=== PATIENT | female | born 1955 | race Caucasian/White ===

== ENCOUNTER → 2016-10-13 | Outpatient (CLI) | payer OTHER, BC ==
[~2016-10-13] MED LIST: ACETAMINOPHEN325 M1 PO; APAP500 PO; ATIVAN0.5 MG PO; ATIVAN1 MG PO; B12INJ IM; BACTRIM DS TAB1 EACH PO; BELLADONNA500 ML PO; CALCIUM 600 +1 EAC1 PO; CALCIUM PO; CEFEPIME 1 GM VI1 G2 INJECTION; CHLORTHALIDONE25 MG PO; CIPRO250 M1 PO; CIPRO500 MG PO; CLOTRIMAZOLE-BE30 M1 TP; COMPAZINE10 M1 PO; COUMADIN 5 MG TA5 M1 PO; DARVOCET-N 1001 EAC1 PO; DEMADEX20 MG PO; DILAUDID4 MG PO; DOCUPRENE100 MG PO; DUCODYL5 MG PO; FENTANYL PA25 MCG/HR TD; FENTANYL PA50 MCG/HR TP; FLEXERIL PO; FLOMAX0.4 MG PO; FOLIC ACID1 MG; GABAPENTIN 100100 MG PO; HCTZ PO; HYDROCODON-ACE1 EAC5 PO; IBUPROFEN 600600 M1 PO; INVANZ 1GM/NS 101 GM; IRON325; KEFLEX500 MG PO; LOPERAMIDE 2 MG2 M1 PO; MAGNESIUM400 MG PO; MEDROLDOSEPACK PO; MIRALAX17 GM PO; NORCO 10-325 T1 EACH PO; NORCO 5-325 TA1 EACH; NYAMYC15 GM TOP; NYSTATIN 1100000 U/M PO; NYSTATIN1 EA10 TOP; ONDANSETRON HCL4 M2 PO; PERCOCET 10-321 EACH PO; PERCOCET 5-3251 EACH PO; PHENAZOPYRIDIN200 M2 PO; PROBIOTIC1 EAC1 PO; PROTONIX40 M1 PO; SENNA PO; SENOKOT-S1 TA1 PO; TOPROL XL25 MG PO; TRAMADOL 50 MG50 MG PO; TRIAMTERENE-HC1 EAC1 PO; VESICARE 5 MG TA5 MG PO; VITCB500GO PO; ZOFRAN4 MG PO
[2016-10-13 12:15] VITALS: BP 117/46
[2016-10-13 12:27] LABS: HEMATOCRIT 36.4 % (37.0-47.0); HEMOGLOBIN 11.1 gm/dL (12.0-15.0); MCH 26.1 pg (26.0-34.0); MCHC 30.4 g/dL (28.0-37.0); MCV 85.7 fL (80.0-100.0); RBC 4.25 mil/uL (4.20-5.00); RDW 18.3 % (10.5-14.5); WBC 7.5 thou/uL (4.0-11.0)
[2016-10-13 12:40] LABS: ALBUMIN 2.7 g/dL (3.4-5.0); CALCIUM 8.3 mg/dL (8.5-10.1); CREATININE 2.3 mg/dL (0.6-1.0); POTASSIUM 4.7 mmol/L (3.5-5.1); TOTAL BILIRUBIN 0.4 mg/dL (<0.1-1.0); TOTAL PROTEIN 6.6 g/dL (6.4-8.2)
== END ==
LOC: OPONC 07:22
PROVIDERS: Internal Medicine
DX: N30.01 Acute cystitis with hematuria (principal)
CPT/HCPCS: 27001; 95000

== ENCOUNTER 2017-01-29 14:50 | Inpatient (IN) | payer OTHER, BC ==
[~2017-01-29] VITALS: Ht 154.9 cm; Wt 126.1 kg
--- NOTE | ~2017-01-29 | 2DMMODE ---
[facility] [address] [place] [address] 2 D/M-MODE ECHOCARDIOGRAM Name: EDGARDO PEDRAZA Room #: 422-P ADM IN M.R.#: [id number] Admission: 01/29/17 Attend Phys: Sonido Ivy Discharge: Date of : 53 Date of Service: 01/30/17 1218 Report #: [id number] THIS REPORT FOR: //name// APPROVED REPORT Study performed: 01/30/2017 10:33:00 EXAM: Comprehensive 2D, Doppler, and color-flow Echocardiogram Patient Location: Echo lab Room #: 422 Status: routine BSA: 2.15 HR: 93 bpm Rhythm: NSR Other Information Study Quality: Fair/uncooperative patient. Poor apical window. Not all measurements taken. Technically limited study due to morbid obesity. Limited mobility. Indications Congestive Heart Failure Dyspnea Tachycardia Edema Echo Enhancing Agent Indication: Endocardial border delineation Agent(s) / Amount(s) Used: Optison 3 cc 2D Dimensions LVEF(%): 69.20 (>50%) IVSd: 11.00 (7-11mm) LVOT Diam: 23.52 (18-24mm) LVDd: 49.31 mm PWd: 9.88 (7-11mm) LVDs: 30.09 (25-40mm) Aortic Root: 36.21 mm Lee's LVEF: 69.20 % Aortic Valve AoV Peak Ricardo.: 1.68 m/s AO Peak Gr.: 11.29 mmHg LVOT Max P.04 mmHg LVOT Max V: 1.23 m/s [facility] [address] [place] [address] 2 D/M-MODE ECHOCARDIOGRAM Name: EDGARDO PEDRAZA Room #: 422-P ADM IN M.R.#: [id number] Admission: 01/29/17 Attend Phys: Sonido Ivy Discharge: Date of : 53 Date of Service: 01/30/17 1218 Report #: [id number] Vmax: 3.18 cm2 Mitral Valve E/A Ratio: 1.2 MV Decel. Time: 129.26 ms MV E Max Ricardo.: 1.30 m/s MV A Ricardo.: 1.09 m/s MV PHT: 37.49 ms Pulmonary Valve PV Peak Ricardo.: 0.90 m/s PV Peak Gr.: 3.21 mmHg Tricuspid Valve TR Peak Ricardo.: 2.91 m/s RAP Estimate: 15.00 mmHg TR Peak Gr.: 34.00 mmHg PA Pressure: 49.00 mmHg Left Ventricle The left ventricle is normal size. There is normal LV segmental wall motion. Flattened septum noted. There is normal left ventricular wall thickness. The left ventricular systolic function is normal. LVEF is 55%. Moderate diastolic dysfunction is present (pseudonormal filling). Right Ventricle Poorly visualized but appears dilated. Difficult to assess function. Atria The left atrium size is normal. Poorly visulalized but appears dilated. Aortic Valve The aortic valve is normal in structure. No aortic regurgitation is present. There is no aortic valvular stenosis. Mitral Valve The mitral valve is normal in structure. Mild mitral regurgitation. Eccentric jet; diffiucult to assess Tricuspid Valve The tricuspid valve is normal in structure. There is mild tricuspid regurgitation; difficult to assess. The right atrial pressure is estimated at 15 mmHg. There is moderate pulmonary hypertension with an estimated PAP of 45-50mmHg. [facility] [address] [place] [address] 2 D/M-MODE ECHOCARDIOGRAM Name: EDGARDO PEDRAZA Room #: 422-P ADM IN M.R.#: [id number] Admission: 01/29/17 Attend Phys: Sonido Ivy Discharge: Date of : 53 Date of Service: 01/30/17 1218 Report #: [id number] Pulmonic Valve The pulmonary valve is normal in structure. Trace pulmonic regurgitation. Great Vessels The aortic root is normal in size. Ascending aorta is not well visualized. IVC is dilated and collapses <50% with inspiration. Pericardium There is no pericardial effusion. <Conclusion> The left ventricular systolic function is normal. LVEF is 55%. Moderate diastolic dysfunction is present (pseudonormal filling). Poorly visualized but appears dilated. Difficult to assess function. The aortic valve is normal in structure. Mild mitral regurgitation. Eccentric jet; diffiucult to assess There is mild tricuspid regurgitation; difficult to assess. The right atrial pressure is estimated at 15 mmHg. There is moderate pulmonary hypertension with an estimated PAP of 45-50mmHg. IVC is dilated and collapses <50% with inspiration. There is no pericardial effusion. <ELECTRONICALLY SIGNED> By: Alin Lara MD, [facility] 01/30/17 1218 17 Alin Lara MD, FACC /INF
--- NOTE | ~2017-01-29 | EKG ---
[place] [address] [facility] [place] [address] ELECTROCARDIOGRAM REPORT Name: EDGARDO PEDRAZA Room #: 422-P ADM IN M.R.#: [id number] Admission: 01/29/17 Attend Phys: Fernanda Gamboa Discharge: Date of : 53 Report #: [id number] THIS REPORT FOR: //name// [facility] Test Date: 2017-02-01 Test Time: 08:05:56 Pat Name: EDGARDO PEDRAZA Department: Room: 422 Gender: F Kick Press Setter: CASA : 1955 Requested By: Nataliya Magaña Order Number: [id number] MD: Jose Hester Measurements Intervals [place] Rate: 99 P: -8 [place]: 158 QRS: 166 QRSD: 108 T: -42 QT: 343 QTc: 441 Interpretive Statements Sinus rhythm Low voltage, precordial leads Poor R wave progression Nonspecific T abnormalities, diffuse leads Baseline wander in lead(s) V3 Compared to ECG 08/06/2015 16:23:20 No significant change was found Electronically Signed On 02-03-2017 12:42:48 CDT by Jose Hester [email or web address] <ELECTRONICALLY SIGNED> By: Jose Hester MD, [facility] 02/03/17 1242 08 0805 Jose Hester MD, [facility] /EPI
--- NOTE | ~2017-01-29 | H ---
[facility] [place] [address] HISTORY AND PHYSICAL Name: EDGARDO PEDRAZA Room #: 422-P ADM IN M.R.#: [id number] Admission: 01/29/17 Attend Phys: Fernanda Gamboa Discharge: Date of : 53 Report #: [id number] THIS REPORT FOR: //name// CC: Sonido Miranda DATE OF SERVICE: 01/29/2017 CHIEF COMPLAINT: Swelling. HISTORY OF PRESENT ILLNESS: The patient is a 61-year-old female admitted from the office with swelling. She has noted recent days of increased shortness of breath, lower extremity edema and weight gain. She has felt a fullness across her abdomen and the sensation of pitting edema all the way up to her lower back and mid abdomen. She does have a known history of diastolic heart failure and chronic kidney disease. PAST MEDICAL HISTORY: Metastatic endometrial cancer treated several years ago, current status is unknown; chronic kidney disease; diastolic heart failure; morbid obesity. PAST SURGICAL HISTORY: I believe she has had a hysterectomy. FAMILY HISTORY: Noncontributory. SOCIAL HISTORY: She lives at home. No chronic alcohol or tobacco use. ALLERGIES: KEFLEX ORAL AND IV CONTRAST, NONSTEROIDALS, TORSEMIDE, PENICILLIN. MEDICATIONS: Lasix, Ativan, hydrocodone. REVIEW OF SYSTEMS: She denies headache, chest pain, shortness of breath, abdominal pain, nausea, vomiting, diarrhea, constipation, dysuria, syncope. OBJECTIVE: VITAL SIGNS: Temperature 37.1, pulse , respirations 20, blood pressure 120/60, O2 sat 95% on room air. GENERAL: She is awake and alert, sitting up in bed in no distress. LUNGS: Clear. HEART: Regular. ABDOMEN: Obese, soft, normoactive bowel sounds. EXTREMITIES: She has pitting edema in the flanks bilaterally. EXTREMITIES: 2 to 3+ pitting edema throughout. NEUROLOGIC: She is alert and oriented. Strength is intact. ASSESSMENT: 1. Acute on chronic diastolic heart failure. [address] [address] HISTORY AND PHYSICAL Name: EDGARDO PEDRAZA Room #: [facility] IN M.R.#: [id number] Admission: 01/29/17 Attend Phys: Fernanda Gambao Discharge: Date of : 53 Report #: [id number] 2. Acute on chronic kidney disease stage IV with estimated GFR of 18. 3. Anasarca. 4. Morbid obesity. 5. Personal history of endometrial cancer and I have asked for a CT of the abdomen to rule out ascites or mass effect and Doppler ultrasound. The Renal and Cardiology Services have seen her as well. Lovenox for deep venous thrombosis prophylaxis. <ELECTRONICALLY SIGNED> By: Rudolph Benavidez MD 01/30/17 1456 1049 1135 Rudolph Benavidez MD /nt
--- NOTE | ~2017-01-29 | HC ---
[facility] [place] [address] CONSULTATION Name: EDGARDO PEDRAZA Room #: 422-P [facility] IN M.R.#: [id number] Admission: 01/29/17 Attend Phys: Fernanda Gamboa Discharge: 02/03/17 Date of : 53 Report #: [id number] THIS REPORT FOR: //name// CC: Sonido Miranda DATE OF SERVICE: 01/30/2017. REASON FOR CONSULTATION: Elevated creatinine. HISTORY OF PRESENT ILLNESS: The patient followed in our office previously by Dr. 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 She has had chronic renal stone disease from previous jejunoileal bypass, she has had obstruction on the right, she has had lithotripsy, and now her creatinine is rising. She is not having right-sided flank pain at this time. PAST MEDICAL HISTORY: She had endometrial carcinoma. As mentioned, radiation and chemotherapy. She has had gastric bypass surgery, jejunoileal bypass with the frequent oxalate kidney stone. She has had a hysterectomy and cholecystectomy in the past as well. HOME MEDICATIONS: As listed include furosemide 20 mg b.i.d., Ativan 0.5 mg daily and Berkley p.r.n. FAMILY HISTORY: Positive for cancer and heart disease. 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 REVIEW OF SYSTEMS: GENERAL: She has been feeling poorly, easily winded. EYES: Her vision is okay. ENT: Hearing okay, swallows okay. Denies mouth ulcers. ENDOCRINE: No diabetes or thyroid disease. RESPIRATORY: She has been getting increasingly short of breath . CARDIAC: No chest pain, angina or palpitations. GASTROINTESTINAL: No nausea, vomiting, diarrhea or bloody stools. GENITOURINARY: She has got a reasonably good stream without dysuria. NEUROLOGIC: She has got evidence of peripheral neuropathy with numbness and tingling in her feet and hands. PSYCHIATRIC: She is very anxious. PHYSICAL EXAMINATION: VITAL SIGNS: This is a anxious woman in no acute distress. SKIN: Unremarkable. SKELETAL: Rather obese. HEENT: Extraocular movements are full. No scleral icterus. Hearing and vision [facility] [address] [place] [address] CONSULTATION Name: EDGARDO PEDRAZA Room #: 422-P [facility] IN M.R.#: [id number] Admission: 01/29/17 Attend Phys: Fernanda Gamboa Discharge: 02/03/17 Date of : 53 Report #: [id number] intact. Mucous membranes moist. Tongue, buccal mucosa benign. NECK: Supple. CHEST: Clear to auscultation. HEART: Regular. ABDOMEN: Soft and nontender. EXTREMITIES: 3+ peripheral edema. LABORATORY DATA: Hemoglobin 8.9, sodium 140, potassium 4.3, chloride 106, bicarbonate 30. BUN 32, creatinine 2.7. ASSESSMENT AND PLAN: 1. Elevated creatinine, her creatinine has been progressively rising, this could be due to swelling and diuresis may help, this could be worsening progression of renal disease, partially due to lithotripsy procedures on her and malfunctioning kidney, this could be recurrent renal stone disease with obstructions. KUB and renal sonogram will be performed to assess for kidney stones and hydronephrosis. 2. Volume overload. I suspect her cardiac function is okay. We will try some IV diuretics. 3. Status post jejunoileal bypass. 4. Calcium oxalate renal stones. We need chronic treatment with calcium with her meals to bind up the oxalate. 5. History of endometrial carcinoma, status post radiation and chemotherapy and hysterectomy. 6. Peripheral neuropathy. <ELECTRONICALLY SIGNED> By: Alin Denton MD 02/04/17 1122 0942 1221 Alin Denton MD /nt
--- NOTE | ~2017-01-29 | EKG ---
[address] [address] ELECTROCARDIOGRAM REPORT Name: EDGARDO PEDRAZA Room #: 422- ADM IN M.R.#: [id number] Admission: 01/29/17 Attend Phys: Fernanda Gamboa Discharge: Date of : 53 Report #: [id number] THIS REPORT FOR: //name// [facility] Test Date: 2017-01-29 Test Time: 15:48:36 Pat Name: EDGARDO PEDRAZA Department: Room: 422 Gender: F Trackwalker: Fernanda MENDOZA : 1955 Requested By: Sonido Miranda Order Number: [id number] MD: Jose Hester Measurements Intervals [place] Rate: 89 P: 7 [place]: 165 QRS: 189 QRSD: 104 T: -13 QT: 360 QTc: 439 Interpretive Statements Sinus rhythm Atrial premature complex Probable RVH w/ secondary repol abnormality Compared to ECG 08/06/2015 16:23:20 Atrial premature complex(es) now present Electronically Signed On 02-03-2017 8:46:06 CDT by Jose Hester [email or web address] <ELECTRONICALLY SIGNED> By: Jose Hester MD, [facility] 02/03/17 0846 1548 1548 Jose Hester MD, [facility] /EPI
[2017-01-29 16:12] VITALS: BP 106/50
[2017-01-29] MEDS ORDERED: LASIX 20 MG TAB20 MG PO (18:04)
[2017-01-29 19:26] LABS: ABSOLUTE NEUTROPHILS 7.1 thou/uL (1.4-8.2); BASOPHILS 0.3 % (0.0-2.0); EOSINOPHILS 1.3 % (0.0-3.0); HEMATOCRIT 29.6 % (37.0-47.0); HEMOGLOBIN 8.9 gm/dL (12.0-15.0); LYMPHOCYTES 5.6 % (24.0-44.0); MANUAL DIFF NO; MCH 25.6 pg (26.0-34.0); MCHC 30.1 g/dL (28.0-37.0); MCV 85.2 fL (80.0-100.0); MONOCYTES 7.2 % (1.0-8.0); PLATELET COUNT 148 thou/uL (150-400); POLYS 85.6 % (36.0-66.0); RBC 3.48 mil/uL (4.20-5.00); RDW 20.6 % (10.5-14.5); WBC 8.2 thou/uL (4.0-11.0)
[2017-01-29 19:39] LABS: ALBUMIN 2.5 g/dL (3.4-5.0); CALCIUM 8.2 mg/dL (8.5-10.1); CREATININE 2.7 mg/dL (0.6-1.0); POTASSIUM 4.3 mmol/L (3.5-5.1); TOTAL BILIRUBIN 0.6 mg/dL (<0.1-1.0); TOTAL PROTEIN 6.7 g/dL (6.4-8.2)
[2017-01-29 20:04] VITALS: BP 110/57
[2017-01-30 04:15] VITALS: BP 97/54
[2017-01-30 08:04] VITALS: BP 120/60
[2017-01-30 16:12] VITALS: BP 129/73
[2017-01-30 20:00] VITALS: BP 109/45
[2017-01-31 03:39] LABS: ALBUMIN 2.4 g/dL (3.4-5.0); CREATININE 2.7 mg/dL (0.6-1.0); PHOSPHORUS 3.4 mg/dL (2.5-4.9); POTASSIUM 4.3 mmol/L (3.5-5.1)
[2017-01-31 04:50] VITALS: BP 109/54
[2017-01-31 08:00] VITALS: BP 126/67
[2017-01-31 11:32] LABS: URINE BILIRUBIN NEGATIVE (Negative); URINE BLOOD 1+ (Negative); URINE COLOR YELLOW; URINE GLUCOSE-RANDOM* NEGATIVE (Negative); URINE KETONES NEGATIVE (Negative); URINE NITRITE NEGATIVE (Negative); URINE PROTEIN (DIPSTICK) NEGATIVE (Negative); URINE UROBILINOGEN 0.2 E.U./dl (0.2-1.0)
[2017-01-31 11:40] LABS: URINE CREATININE-RANDOM* 27.5 mg/dL; URINE PROTEIN-RANDOM* 14.8 mg/dL (<11.9)
[2017-01-31 12:45] LABS: BACTERIA 1-9 Few /HPF (None Seen); CASTS None Seen /LPF (None Seen); CRYSTALS None Seen /LPF (None Seen); SQUAMOUS 0-3 Few /LPF (0-3); URINE RBC 0-2 Rare /HPF (0-2); URINE WBC 6-15 Few /HPF (0-5)
[2017-01-31 20:00] VITALS: BP 95/39
[2017-02-01 03:53] LABS: ALBUMIN 2.5 g/dL (3.4-5.0); CALCIUM 8.1 mg/dL (8.5-10.1); CREATININE 2.8 mg/dL (0.6-1.0); POTASSIUM 4.4 mmol/L (3.5-5.1)
[2017-02-01 04:24] VITALS: BP 104/42
[2017-02-01 14:00] LABS: HEMATOCRIT 31.9 % (37.0-47.0); HEMOGLOBIN 9.5 gm/dL (12.0-15.0); MCH 24.8 pg (26.0-34.0); MCHC 29.7 g/dL (28.0-37.0); MCV 83.3 fL (80.0-100.0); PLATELET COUNT 194 thou/uL (150-400); RBC 3.83 mil/uL (4.20-5.00); RDW 20.2 % (10.5-14.5); WBC 9.1 thou/uL (4.0-11.0)
[2017-02-01 14:01] LABS: MANUAL DIFF YES
[2017-02-01 14:25] LABS: ABSOLUTE NEUTROPHILS 7.6 thou/uL (1.4-8.2); ANISOCYTOSIS 1+; TOTAL CELL COUNT 100
[2017-02-01 18:29] LABS: URINE BILIRUBIN NEGATIVE (Negative); URINE BLOOD 1+ (Negative); URINE COLOR YELLOW; URINE GLUCOSE-RANDOM* NEGATIVE (Negative); URINE KETONES NEGATIVE (Negative); URINE NITRITE NEGATIVE (Negative); URINE PROTEIN (DIPSTICK) NEGATIVE (Negative); URINE UROBILINOGEN 0.2 E.U./dl (0.2-1.0)
[2017-02-01 18:34] LABS: SQUAMOUS 0-3 Few /LPF (0-3); URINE RBC 3-10 Few /HPF (0-2); URINE WBC 6-15 Few /HPF (0-5)
[2017-02-01 18:35] LABS: BACTERIA 1-9 Few /HPF (None Seen); CASTS None Seen /LPF (None Seen); CRYSTALS None Seen /LPF (None Seen)
[2017-02-01 20:00] VITALS: BP 109/48
[2017-02-02 04:30] VITALS: BP 108/55
[2017-02-02 05:27] LABS: ALBUMIN 2.5 g/dL (3.4-5.0); CALCIUM 8.1 mg/dL (8.5-10.1); CREATININE 2.6 mg/dL (0.6-1.0); PHOSPHORUS 3.6 mg/dL (2.5-4.9); POTASSIUM 3.9 mmol/L (3.5-5.1)
[2017-02-02 08:28] VITALS: BP 108/61
[2017-02-02 16:54] VITALS: BP 101/59
[2017-02-02 20:01] VITALS: BP 95/46
[2017-02-03 03:34] VITALS: BP 107/58
[2017-02-03 05:25] LABS: ALBUMIN 2.7 g/dL (3.4-5.0); CALCIUM 8.1 mg/dL (8.5-10.1); CREATININE 2.7 mg/dL (0.6-1.0); PHOSPHORUS 3.5 mg/dL (2.5-4.9)
[2017-02-03 08:00] VITALS: BP 108/59
[2017-02-03] MEDS ORDERED: TAMBOCOR 100 M100 M1 PO (09:22)
[2017-02-03] MEDS ORDERED: LASIX 40 MG TAB40 M2 PO (09:23)
[2017-02-03] MEDS ORDERED: METOPROLOL SUCC25 M1 PO (09:23)
[2017-02-03 10:34] VITALS: BP 108/59
== END 2017-02-03 16:56 | disposition home or self-care (01) | DRG 682 ==
LOC: 4E 14:50
PROVIDERS: Hospitalist; Internal Medicine; Internal Medicine Geriatric Medicine; Internal Medicine Nephrology
DX: N17.9 Acute kidney failure, unspecified (principal); I50.33 Acute on chronic diastolic (congestive) heart failure; I47.1 Supraventricular tachycardia; Z68.43 Body mass index [BMI] 50.0-59.9, adult; E66.01 Morbid (severe) obesity due to excess calories; N18.4 Chronic kidney disease, stage 4 (severe); D64.9 Anemia, unspecified; G89.29 Other chronic pain; M54.9 Dorsalgia, unspecified; N20.0 Calculus of kidney; I27.2 Other secondary pulmonary hypertension; Z92.3 Personal history of irradiation; Z92.21 Personal history of antineoplastic chemotherapy; Z98.84 Bariatric surgery status; Z90.710 Acquired absence of both cervix and uterus; Z80.8 Family history of malignant neoplasm of other organs or systems; Z82.49 Family history of ischemic heart disease and other diseases of the circulatory system
CPT/HCPCS: 10783

== ENCOUNTER 2017-03-13 16:03 | Inpatient (IN) | payer OTHER, BC ==
[~2017-03-13] VITALS: Ht 154.9 cm; Wt 136.8 kg
--- NOTE | ~2017-03-13 | HC ---
[facility] [place] [address] CONSULTATION Name: EDGARDO PEDRAZA Room #: 243-P ADM IN M.R.#: [id number] Admission: 03/13/17 Attend Phys: Rudolph Benavidez MD Discharge: Date of : 53 Report #: [id number] THIS REPORT FOR: //name// CC: Sonido Benavidez PRIMARY CARE PHYSICIAN: Dr. Devyn Miranda. REFERRING PHYSICIAN: Dr. Benavidez. REASON FOR REFERRAL: Acute hypoxic respiratory failure. HISTORY OF PRESENT ILLNESS: The patient is a 61-year-old white female who was admitted on 03/13/2017 with worsening anasarca along with pulmonary edema. She has chronic kidney disease. Overnight, she became more hypoxic when she was transferred to the ICU, a pulmonary consultation was requested. The patient has been closely followed by renal service. She was felt to have worsening of renal function. Because of some noncompliance with dietary salt intake, she has been difficult to manage. With worsening symptoms along with anasarca, plan is now for dialysis today. She is much better since early this morning. She is on noninvasive positive pressure ventilation. Chest x-ray shows small lung volumes with increased pulmonary edema. PAST MEDICAL HISTORY: Notable for endometrial and cervical cancer with hysterectomy in 2011, chemo and radiation therapy. 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 PAST SURGICAL HISTORY: Includes tonsillectomy, cholecystectomy, gastric bypass surgery in 1973, total abdominal hysterectomy, bilateral salpingo-oophorectomy for endometrial cancer. ALLERGIES: 1. CEPHALOSPORIN, which causes severe C. difficile colitis. 2. CONTRAST DYE due to renal failure. 3. NSAIDS due to renal failure. 4. TORSEMIDE causes some swelling and tingling or paresis. 5. TETANUS TOXOID causes edema and fever. 6. PENICILLIN also causes C. difficile colitis. HOME MEDICATIONS: Lasix, Tambocor, Toprol, Ativan, Zofran, hydrocodone. FAMILY HISTORY: Noncontributory. [facility] [address] [place] [address] CONSULTATION Name: EDGARDO PEDRAZA Room #: [facility] IN M.R.#: [id number] Admission: 03/13/17 Attend Phys: Rudolph Benavidez MD Discharge: Date of : 53 Report #: [id number] SOCIAL HISTORY: The patient has smoked in the past. She denies any alcohol use. REVIEW OF SYSTEMS: As mentioned above, otherwise 10-point system review negative. PHYSICAL EXAMINATION: GENERAL: She is awake, alert, in mild distress. VITAL SIGNS: Temperature is 98 degrees Fahrenheit, pulse is 82, respiratory rate is 24, blood pressure is 99/52 mmHg, saturation is 92%. HEENT: Normocephalic, atraumatic. NECK: Supple, without lymphadenopathy or thyromegaly. CHEST: Breath sounds are distant with few scattered crackles in the bases. No wheezes. CARDIOVASCULAR: Heart sounds are distant. No obvious murmurs or gallop. Pulses are 2+/4+ bilaterally. BREASTS: Exam deferred. ABDOMEN: Moderately obese, soft, nontender, no organomegaly or masses felt. GENITOURINARY: Deferred. RECTAL: Deferred. EXTREMITIES: Remarkable for 3 to 4+ bilateral lower extremity edema. No cyanosis or clubbing. LABORATORY DATA: Chest x-ray as mentioned above showing cardiomegaly with pulmonary venous congestion. CT abdomen and pelvis showing nonobstructing bilateral nephrolithiasis, small right-sided pleural effusion, minimal abdominal ascites, subcutaneous edema. BNP was more than 70,000. Electrolytes: Sodium 138, potassium 4.5, chloride 101, CO2 is 30, BUN is 80, creatinine is 5.9. Liver function test was grossly unremarkable other than elevated alkaline phosphatase. WBC 8900, hemoglobin is 9.5, platelets normal. Arterial blood gas revealed pH of 7.27, pCO2 of 63, pO2 of 83 on FIO2 of 40%. IMPRESSION: 1. Acute hypoxemic hypercapnic respiratory failure in this 61-year-old white female with anasarca, worsening chronic kidney failure. The patient is volume overloaded due to worsening renal function. Part of the hypercapnia is likely related to obesity along with underlying hypoventilation. 2. Acute kidney injury/chronic kidney disease. 3. Anasarca with pulmonary edema, diffuse edema. 4. Obesity with past gastric bypass surgery. 5. History of obstructive sleep apnea or probable obesity hypoventilation syndrome. Continue BiPAP. 6. History of uterine and cervical cancer, status post treatment in 2011 with chemo and radiation. RECOMMENDATION: Continue noninvasive positive pressure ventilation, wean O2 if [address] [address] CONSULTATION Name: EDGARDO PEDRAZA Room #: 243-P ADM IN M.R.#: [id number] Admission: 03/13/17 Attend Phys: Rudolph Benavidez MD Discharge: Date of : 53 Report #: [id number] saturation 90%. Plan for dialysis noted along with diuresis. DVT and GI prophylaxis recommended. Follow up chest x-ray. Thank you for this consultation. By: 1748 Tato Meléndez MD /nt
--- NOTE | ~2017-03-13 | H ---
[facility] [place] [address] HISTORY AND PHYSICAL Name: EDGARDO PEDRAZA Room #: 214-P ADM IN M.R.#: [id number] Admission: 03/13/17 Attend Phys: Rudolph Benavidez MD Discharge: Date of : 53 Report #: [id number] THIS REPORT FOR: //name// CC: Sonido Benavidez DATE OF SERVICE: 03/13/2017 CHIEF COMPLAINT: Shortness of breath. HISTORY OF PRESENT ILLNESS: The patient is a 61-year-old female who was admitted through the Emergency Room again with shortness of breath. She was noted to have pulmonary edema on x-ray and diffuse edema throughout the abdominal wall and lower extremities. This was consistent with general anasarca and heart failure related to renal dysfunction. She was hospitalized here about a month ago for very similar problems and was seen by the renal service, diuresed with IV Lasix and then discharged home to oral treatment. However, she has noted increasing weight and fluid distention of the abdomen and lower legs for several days. She has a known chronic kidney disease stage IV with a creatinine in the 2 to 2.5 range. She had previously undergone radiation therapy for uterine cancer about 5 years ago and reports solitary functioning kidney. She has been followed by the renal services as an outpatient. PAST MEDICAL HISTORY: Endometrial and cervical cancer with complete hysterectomy in 2011, followed by chemo and radiation. She has had kidney stones, a history of esophageal erosions and gastritis, CHF, chronic kidney disease stage IV. PAST SURGICAL HISTORY: She has also had a cholecystectomy. FAMILY HISTORY: Noncontributory. SOCIAL HISTORY: She lives at home. No chronic alcohol or tobacco use. ALLERGIES: IV and ORAL IODINE CONTRAST, NONSTEROIDALS, TORSEMIDE, PENICILLIN, CEPHALEXIN. MEDICATIONS: Tambocor 100 mg b.i.d., Toprol-XL 12.5 mg, Lasix 80 mg twice a day, Ativan 0.5 mg p.r.n., hydrocodone 10 mg p.r.n., Zofran 4 mg p.r.n. REVIEW OF SYSTEMS: She denies headache, fever, chills, chest pain, productive cough, nausea, vomiting, dysuria, syncope. OBJECTIVE: VITAL SIGNS: Temperature 36.7, pulse 73, respirations 20, blood pressure 99/46, O2 sat 95% on 3 L nasal cannula. [facility] [address] [place] [address] HISTORY AND PHYSICAL Name: EDGARDO PEDRAZA Room #: 214-P [facility] IN ..#: [id number] Admission: 03/13/17 Attend Phys: Rudolph Benavidez MD Discharge: Date of : 53 Report #: [id number] GENERAL: She is awake, alert and oriented. HEAD AND NECK: Unremarkable. LUNGS: Diminished, clear anteriorly. HEART: Regular, no murmur. ABDOMEN: Obese, soft, normoactive bowel sounds. There is abdominal wall pitting edema of the flanks. EXTREMITIES: She has 3+ pitting edema. NEUROLOGIC: Global strength 4/5 throughout. LABS: Creatinine is 5, BUN 70. Urine output overnight was about 900 mL. ASSESSMENT: 1. Acute on chronic renal failure. 2. Chronic kidney disease, stage IV. 3. Anasarca due to the above. 4. Acute pulmonary edema due to the above. 5. Anemia of chronic disease. 6. Personal history of uterine and cervical cancer treated in 2011. PLAN: She has been assessed by the renal service and medications have been adjusted. I spoke to her about the possibility of hemodialysis requirement due to volume overload. We will see how she responds to diuretics. Lovenox for DVT prophylaxis and continuation of her home medications. <ELECTRONICALLY SIGNED> By: Rudolph Benavidez MD 03/15/17801 2 3 Rudolph Benavidez MD /nt
--- NOTE | ~2017-03-13 | EKG ---
[address] [place] [address] ELECTROCARDIOGRAM REPORT Name: EDGARDO PEDRAZA Room #: 214-P ADM IN M.R.#: [id number] Admission: 03/13/17 Attend Phys: Rudolph Benavidez MD Discharge: Date of : 53 Report #: [id number] THIS REPORT FOR: //name// [facility] ED Test Date: 2017-03-13 Test Time: 16:22:26 Pat Name: EDGARDO PEDRAZA Department: Room: 214 Gender: F Grant Coordinator: BROOK[place] : 1955 Requested By: Maegan Arellano Order Number: [id number] MD: Kausihk Fernandes Measurements Intervals [place] Rate: 72 P: 90 [place]: 231 QRS: 150 QRSD: 129 T: QT: 430 QTc: 471 Interpretive Statements Sinus rhythm Prolonged TX interval RBBB and LPFB Nonspecific T abnormalities, lateral leads Compared to ECG 02/01/2017 08:05:56 First degree AV block now present Left posterior fascicular block now present Right bundle-branch block now present Poor R-wave progression no longer present T-wave abnormality still present Electronically Signed On 03-13-2017 21:06:52 CDT by Kaushik Fernandes [email or web address] <ELECTRONICALLY SIGNED> By: Kaushik Fernandes MD 03/13/17 2106 21 21 Kaushik Fernandes MD /EPI
[~2017-03-13 16:03] MED LIST changes: +LASIX 20 MG TAB20 MG PO; +LASIX 40 MG TAB40 M2 PO; +METOPROLOL SUCC25 M1 PO; +TAMBOCOR 100 M100 M1 PO
[2017-03-13 16:05] VITALS: BP 108/47
[2017-03-13 16:41] LABS: ABG SAMPLE TYPE ARTERIAL; BE(vivo) -3.2 mmol/L (-2 to +3); HCO3 23.2 mmol/L (22.0-26.0); LACTATE 1.97 mmol/L (0.5-2.0); O2(CT) 10.9 mL/dL (15.0-23.0); O2Hb 71.9 % (92.0-98.0); PCO2 47.7 mmHg (35.0-45.0); PO2 41.1 mmHg (80.0-100.0); STICK SITE R.BRACHIAL; pH 7.305 (7.360-7.450); sO2 71.2 % (92.0-98.0); tCO2 24.7 mmol/L (24.0-30.0)
[2017-03-13 17:41] LABS: HEMATOCRIT 34.6 % (37.0-47.0); MANUAL DIFF YES; MCH 23.7 pg (26.0-34.0); MCV 81.8 fL (80.0-100.0); PLATELET COUNT 140 thou/uL (150-400); RBC 4.23 mil/uL (4.20-5.00); RDW 20.7 % (10.5-14.5); WBC 8.7 thou/uL (4.0-11.0)
[2017-03-13 17:49] LABS: ANION GAP 11 mmol/L (7-16); BUN 67 mg/dL (7-18); CALCIUM 7.6 mg/dL (8.5-10.1); CHLORIDE 101 mmol/L (98-107); CO2 28 mmol/L (21-32); CREATININE 4.9 mg/dL (0.6-1.0); GLUCOSE 94 mg/dL (74-106); POTASSIUM 4.9 mmol/L (3.5-5.1); SODIUM 140 mmol/L (136-145)
[2017-03-13 17:58] LABS: ALBUMIN 2.9 g/dL (3.4-5.0); ALKALINE PHOSPHATASE 136 U/L (46-116); SGOT 15 U/L (15-37); SGPT 8 U/L (30-65); TOTAL BILIRUBIN 0.7 mg/dL (<0.1-1.0); TOTAL PROTEIN 6.7 g/dL (6.4-8.2); TROPONIN-I < 0.04 ng/mL (<0.04-0.07)
[2017-03-13 18:05] LABS: ABSOLUTE NEUTROPHILS 8.1 thou/uL (1.4-8.2); ANISOCYTOSIS 2+; METAMYELOCYTES 1 %; TOTAL CELL COUNT 100
[2017-03-13 18:06] LABS: POIKILOCYTOSIS SLIGHT; POLYCHROMASIA SLIGHT
[2017-03-13] MEDS ORDERED: LASIX 80 MG TAB80 MG PO (18:12)
[2017-03-13 18:35] LABS: URINE BILIRUBIN NEGATIVE (Negative); URINE BLOOD 1+ (Negative); URINE COLOR YELLOW; URINE GLUCOSE-RANDOM* NEGATIVE (Negative); URINE KETONES NEGATIVE (Negative); URINE NITRITE NEGATIVE (Negative); URINE PROTEIN (DIPSTICK) NEGATIVE (Negative); URINE UROBILINOGEN 0.2 E.U./dl (0.2-1.0)
[2017-03-13 18:46] LABS: CASTS None Seen /LPF (None Seen); CRYSTALS None Seen /LPF (None Seen); SQUAMOUS 0-3 Few /LPF (0-3); URINE RBC 0-2 Rare /HPF (0-2); URINE WBC 0-5 Rare /HPF (0-5)
[2017-03-13 18:57] VITALS: BP 98/38
[2017-03-13 19:45] VITALS: BP 90/44
[2017-03-14 00:45] VITALS: BP 96/42
[2017-03-14 03:54] LABS: CALCIUM 7.6 mg/dL (8.5-10.1); POTASSIUM 4.3 mmol/L (3.5-5.1)
[2017-03-14 04:45] VITALS: BP 99/46
[2017-03-14 08:13] VITALS: BP 102/42
[2017-03-14 12:15] VITALS: BP 99/47
[2017-03-14 20:17] VITALS: BP 97/44
[2017-03-15] VITALS (7 sets, daily range): BP systolic 73–99; BP diastolic 31–58
[2017-03-15 03:32] LABS: HEMATOCRIT 32.8 % (37.0-47.0); HEMOGLOBIN 9.5 gm/dL (12.0-15.0); RBC 3.95 mil/uL (4.20-5.00); RDW 20.2 % (10.5-14.5); WBC 8.9 thou/uL (4.0-11.0)
[2017-03-15 03:55] LABS: ALBUMIN 2.7 g/dL (3.4-5.0); CALCIUM 7.2 mg/dL (8.5-10.1); CREATININE 5.6 mg/dL (0.6-1.0); PHOSPHORUS 5.6 mg/dL (2.5-4.9); POTASSIUM 4.5 mmol/L (3.5-5.1)
[2017-03-15 23:17] LABS: ABG SAMPLE TYPE ARTERIAL; HCO3 27.5 mmol/L (22.0-26.0); LACTATE 1.82 mmol/L (0.5-2.0); O2(CT) 14.9 mL/dL (15.0-23.0); O2Hb 97.7 % (92.0-98.0); PCO2 67.3 mmHg (35.0-45.0); PO2 235.2 mmHg (80.0-100.0); pH 7.229 (7.360-7.450); sO2 99.3 % (92.0-98.0); tCO2 29.6 mmol/L (24.0-30.0)
[2017-03-15 23:18] LABS: STICK SITE R.BRACHIAL
[2017-03-16] VITALS (35 sets, daily range): BP systolic 78–105; BP diastolic 35–57
[2017-03-16 04:30] LABS: ALBUMIN 2.6 g/dL (3.4-5.0); CREATININE 5.9 mg/dL (0.6-1.0); PHOSPHORUS 5.5 mg/dL (2.5-4.9); POTASSIUM 4.5 mmol/L (3.5-5.1)
[2017-03-16 06:03] LABS: ABG SAMPLE TYPE ARTERIAL; BE(vivo) 1.1 mmol/L (-2 to +3); HCO3 28.8 mmol/L (22.0-26.0); LACTATE 1.42 mmol/L (0.5-2.0); O2(CT) 12.7 mL/dL (15.0-23.0); O2Hb 93.4 % (92.0-98.0); PCO2 63.8 mmHg (35.0-45.0); PO2 83.2 mmHg (80.0-100.0); sO2 94.5 % (92.0-98.0); tCO2 30.7 mmol/L (24.0-30.0)
[2017-03-16 06:04] LABS: Pressure Support 6 cm H20; STICK SITE R.BRACHIAL; pH 7.272 (7.360-7.450)
[2017-03-16 09:23] LABS: ABG SAMPLE TYPE ARTERIAL; BE(vivo) 0.2 mmol/L (-2 to +3); HCO3 27.9 mmol/L (22.0-26.0); LACTATE 1.42 mmol/L (0.5-2.0); O2(CT) 13.2 mL/dL (15.0-23.0); O2Hb 94.7 % (92.0-98.0); PCO2 62.7 mmHg (35.0-45.0); sO2 95.7 % (92.0-98.0); tCO2 29.8 mmol/L (24.0-30.0)
[2017-03-16 09:24] LABS: Pressure Support 11 cm H20; STICK SITE L.RADIAL; pH 7.266 (7.360-7.450)
[2017-03-17] VITALS (48 sets, daily range): BP systolic 79–111; BP diastolic 25–97
[2017-03-17 04:02] LABS: HEMATOCRIT 30.1 % (37.0-47.0); HEMOGLOBIN 8.9 gm/dL (12.0-15.0); MCH 24.4 pg (26.0-34.0); MCHC 29.7 g/dL (28.0-37.0); RBC 3.67 mil/uL (4.20-5.00); RDW 20.5 % (10.5-14.5)
[2017-03-17 04:23] LABS: ALBUMIN 2.4 g/dL (3.4-5.0); CALCIUM 7.3 mg/dL (8.5-10.1); PHOSPHORUS 4.4 mg/dL (2.5-4.9)
[2017-03-17 04:34] LABS: CREATININE 4.4 mg/dL (0.6-1.0)
[2017-03-17 05:12] LABS: ABG SAMPLE TYPE ARTERIAL; BE(vivo) 1.3 mmol/L (-2 to +3); HCO3 28.8 mmol/L (22.0-26.0); LACTATE 1.19 mmol/L (0.5-2.0); O2Hb 91.1 % (92.0-98.0); PCO2 61.8 mmHg (35.0-45.0); PO2 70.8 mmHg (80.0-100.0); sO2 91.9 % (92.0-98.0); tCO2 30.7 mmol/L (24.0-30.0)
[2017-03-17 05:13] LABS: STICK SITE R.BRACHIAL; pH 7.286 (7.360-7.450)
[2017-03-17 08:48] LABS: HEP B SURFACE Ab(ANTI-HBS Non Reactive (())
[2017-03-18] VITALS (36 sets, daily range): BP systolic 84–113; BP diastolic 41–64
[2017-03-18 05:53] LABS: ALBUMIN 2.4 g/dL (3.4-5.0); CALCIUM 7.8 mg/dL (8.5-10.1); CREATININE 3.6 mg/dL (0.6-1.0); PHOSPHORUS 4.3 mg/dL (2.5-4.9); POTASSIUM 4.1 mmol/L (3.5-5.1)
[2017-03-18 05:55] LABS: % SATURATION 8 % (20-39); IRON 22 ug/dL (50-170); TIBC 288 ug/dL (250-450); UIBC 266 ug/dL
[2017-03-19 05:30] VITALS: BP 98/47
[2017-03-19 06:38] LABS: ALBUMIN 2.5 g/dL (3.4-5.0); CALCIUM 8.4 mg/dL (8.5-10.1); CREATININE 3.9 mg/dL (0.6-1.0)
[2017-03-19 07:31] LABS: ABG SAMPLE TYPE ARTERIAL; BE(vivo) 3.3 mmol/L (-2 to +3); HCO3 29.9 mmol/L (22.0-26.0); O2(CT) 14.2 mL/dL (15.0-23.0); O2Hb 93.2 % (92.0-98.0); PCO2 55.5 mmHg (35.0-45.0); PO2 72.4 mmHg (80.0-100.0); pH 7.349 (7.360-7.450); sO2 93.6 % (92.0-98.0); tCO2 31.6 mmol/L (24.0-30.0)
[2017-03-19 07:32] LABS: STICK SITE L.RADIAL
[2017-03-19 09:31] VITALS: BP 84/35
[2017-03-19] MEDS ORDERED: B & O SUPPRETT1 EAC1 RECTAL (10:14)
[2017-03-19] MEDS ORDERED: PROCRIT20000 UNIT SUBQ (10:14)
[2017-03-19] MEDS ORDERED: ENOXAPARIN30 MG/0.1 SUBQ (10:14)
[2017-03-19] MEDS ORDERED: DUONEB 2.5-0.5 M3 ML INH (10:14)
[2017-03-19] MEDS ORDERED: ACETAMINOPHEN325 M1 PO (10:15)
[2017-03-19] MEDS ORDERED: OXYBUTYNIN 5 MG5 M1 PO (10:15)
[2017-03-19] MEDS ORDERED: NEPHROCAPS SOFT1 CAP PO (10:15)
[2017-03-19] MEDS ORDERED: ONDANSETRON HCL4 M1 IV PUSH (10:15)
== END 2017-03-19 17:25 | DRG 682 ==
LOC: ER 16:03 → 2N 17:50 → EROBS 17:50 → 2N 18:44 → ICU 03-16 01:53 → 3W 03-18 16:30
PROVIDERS: Emergency Medicine; Hospitalist; Internal Medicine Geriatric Medicine; Internal Medicine Nephrology; Internal Medicine Pulmonary Disease; Physician Assistant
DX: N17.9 Acute kidney failure, unspecified (principal); J96.01 Acute respiratory failure with hypoxia; J96.02 Acute respiratory failure with hypercapnia; J81.0 Acute pulmonary edema; Z68.43 Body mass index [BMI] 50.0-59.9, adult; E66.2 Morbid (severe) obesity with alveolar hypoventilation; I13.0 Hypertensive heart and chronic kidney disease with heart failure and stage 1 through stage 4 chronic kidney disease, or unspecified chronic kidney disease; I50.9 Heart failure, unspecified; N18.4 Chronic kidney disease, stage 4 (severe); D63.8 Anemia in other chronic diseases classified elsewhere; Z85.41 Personal history of malignant neoplasm of cervix uteri; Z95.5 Presence of coronary angioplasty implant and graft; Z90.49 Acquired absence of other specified parts of digestive tract; Z88.0 Allergy status to penicillin; Z88.7 Allergy status to serum and vaccine; Z88.8 Allergy status to other drugs, medicaments and biological substances; Z91.041 Radiographic dye allergy status; Z90.710 Acquired absence of both cervix and uterus; Z90.722 Acquired absence of ovaries, bilateral; Z79.899 Other long term (current) drug therapy; Z91.19 Patient's noncompliance with other medical treatment and regimen
CPT/HCPCS: 10078; 10081; 10194; 10779; 32100

== ENCOUNTER → 2017-03-23 | Outpatient (CLI) | payer OTHER ==
[~2017-03-23] MED LIST changes: +B & O SUPPRETT1 EAC1 RECTAL; +DUONEB 2.5-0.5 M3 ML INH; +ENOXAPARIN30 MG/0.1 SUBQ; +LASIX 80 MG TAB80 MG PO; +NEPHROCAPS SOFT1 CAP PO; +ONDANSETRON HCL4 M1 IV PUSH; +OXYBUTYNIN 5 MG5 M1 PO; +PROCRIT20000 UNIT SUBQ
[2017-03-23 09:29] VITALS: BP 90/38
[2017-03-23 10:03] LABS: HEMOGLOBIN 10.1 gm/dL (12.0-15.0); MCH 24.2 pg (26.0-34.0); MCHC 29.6 g/dL (28.0-37.0); MCV 81.7 fL (80.0-100.0); RBC 4.16 mil/uL (4.20-5.00); RDW 20.5 % (10.5-14.5); WBC 8.2 thou/uL (4.0-11.0)
[2017-03-23 10:10] LABS: CREATININE 3.5 mg/dL (0.6-1.0); POTASSIUM 3.6 mmol/L (3.5-5.1)
[2017-03-23 10:50] LABS: APTT 30.5 Seconds (24.5-32.8); INR 1.1; PROTIME 10.5 Seconds (9.3-11.4)
== END | disposition home or self-care (01) ==
LOC: SPEC 08:40
PROVIDERS: Radiology Diagnostic Radiology
DX: Z45.2 Encounter for adjustment and management of vascular access device (principal); N18.6 End stage renal disease; I50.9 Heart failure, unspecified; E66.09 Other obesity due to excess calories; Z90.49 Acquired absence of other specified parts of digestive tract; Z98.890 Other specified postprocedural states; Z98.84 Bariatric surgery status; Z90.710 Acquired absence of both cervix and uterus; Z85.41 Personal history of malignant neoplasm of cervix uteri; Z85.42 Personal history of malignant neoplasm of other parts of uterus; Z86.2 Personal history of diseases of the blood and blood-forming organs and certain disorders involving the immune mechanism; Z88.0 Allergy status to penicillin; Z91.041 Radiographic dye allergy status; Z88.6 Allergy status to analgesic agent; Z88.7 Allergy status to serum and vaccine; Z88.1 Allergy status to other antibiotic agents; Z88.8 Allergy status to other drugs, medicaments and biological substances; Z79.899 Other long term (current) drug therapy

== ENCOUNTER 2017-04-20 08:50 | Inpatient (IN) | payer OTHER, BC ==
[~2017-04-20] VITALS: Ht 154.9 cm; Wt 115.2 kg
[2017-04-20] VITALS (28 sets, daily range): BP systolic 73–108; BP diastolic 36–77
--- NOTE | ~2017-04-20 | EKG ---
[address] [place] [address] ELECTROCARDIOGRAM REPORT Name: EDGARDO PEDRAZA Room #: 247-P ADM IN M.R.#: [id number] Admission: 04/20/17 Attend Phys: Fernanda Gamboa Discharge: Date of : 53 Report #: [id number] THIS REPORT FOR: //name// [facility] ED Test Date: 2017-04-20 Test Time: 09:31:42 Pat Name: EDGARDO PEDRAZA Department: Room: [facility] Gender: F Epic Beacon Analyst: LEONID : 1955 Requested By: Chaim Armendariz Order Number: [id number] MD: Kaushik Fernandes Measurements Intervals [place] Rate: 95 P: 44 [place]: 204 QRS: -91 QRSD: 115 T: 119 QT: 400 QTc: 503 Interpretive Statements Sinus rhythm Incomplete RBBB and LAFB Low voltage, precordial leads Abnormal T, consider ischemia, lateral leads Compared to ECG 03/13/2017 16:22:26 Electronically Signed On 04-20-2017 21:01:25 BASE WAD OPERATOR ADJUSTER by Kaushik Fernandes [email or web address] <ELECTRONICALLY SIGNED> By: Kaushik Fernandes MD 04/20/17 2101 0 0 Kaushik Fernandes MD /EPI
--- NOTE | ~2017-04-20 | D ---
[facility] [place] [address] DISCHARGE SUMMARY Name: EDGARDO PEDRAZA Room #: 208-P [facility] IN M.R.#: [id number] Admission: 04/20/17 Attend Phys: Fernanda Gamboa Discharge: 04/23/17 Date of : 53 Report #: [id number] THIS REPORT FOR: //name// CC: Sonido Miranda DATE OF SERVICE: 04/23/2017 FINAL DIAGNOSES: 1. Pulmonary hypertension. 2. Right heart failure. 3. Valvular heart disease. 4. Thyroid nodule. 5. Hypertension. 6. End-stage renal disease. 7. Morbid obesity. 8. Acute hypoxic respiratory failure. HOSPITAL COURSE: The patient was admitted with shortness of breath and low blood pressure. She was seen by cardiology and renal. Ultimately, echocardiogram revealed pulmonary hypertension and valvular heart disease. The plan was to discontinue metoprolol and use flecainide for her prior history of PSVT. The renal service was able to manage her fluid status with adjustments in her dialysis regimen. There was a discussion of cardiac catheterization, but at this point, the patient did not want to proceed with this, therefore she will be seen as an outpatient with consideration of a nuclear stress test. DISPOSITION: She will be discharged to home with home health. Renal diet and activity as tolerated. Outpatient dialysis. Follow up with Dr. Miranda, Dr. Magaña, and Dr. Lara in 1-2 weeks. She will continue her usual medications except discontinue metoprolol and midodrine 10 mg t.i.d. has been added. By: 1414 1453 Rudolph Benavidez MD /nt
--- NOTE | ~2017-04-20 | HC ---
[facility] [place] [address] CONSULTATION Name: EDGARDO PEDRAZA Room #: 208-P ADM IN M.R.#: [id number] Admission: 04/20/17 Attend Phys: Fernanda Gamboa Discharge: Date of : 53 Report #: [id number] THIS REPORT FOR: //name// CC: Devyn Benavidez MD PRIMARY CARE PHYSICIAN: Dr. Sonido Miranda. REFERRAL PHYSICIAN: Dr. Benavidez. REASON FOR REFERRAL: Pulmonary hypertension. HISTORY OF PRESENT ILLNESS: The patient is a 61-year-old white female who presents to the Emergency Room with progressive weakness, chest discomfort. Subsequent workup including an echocardiogram revealed pulmonary hypertension. Pulmonary consultation was requested. The patient had echocardiogram in 2014. At that time, pulmonary artery pressure was not able to be measured. The right ventricle was dilated, systolic function was decreased, ejection fraction was normal, left ventricular systolic function was normal. There is a mild diastolic dysfunction noted. In 01/2017, the patient had an echocardiogram which showed pulmonary artery pressure now measuring approximately 50 mmHg, ejection fraction of 55%, moderate diastolic dysfunction. On this admission, the patient had an echocardiogram performed showing the pulmonary artery pressure now 60 mmHg with mild mitral regurgitation, right ventricle is severely dilated and hypokinetic, ejection fraction of 50-55%, normal LV function. The patient states that she has been heavy most of the life. In 1970s, she underwent a gastric bypass surgery. Prior to the surgery, she weighed more than 320 pounds. Following the surgery, she has lost about 120 pounds. She is able to maintain her weight. She stands about 5 feet 4 inches tall. She has never taken anorexic agents in the past. She denies any family history of pulmonary hypertension. She denies any past history of venous thromboembolic disease. She does not know if she snores. She lives alone. She denies any overt daytime fatigue or sleepiness. The patient is currently dealing with worsening renal failure. She is now on hemodialysis. 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 She had a CT chest angiogram performed on this admission. This revealed bilateral ground-glass opacities. No pulmonary embolus is noted. No air [address] [address] CONSULTATION Name: EDGARDO PEDRAZA Room #: 208-P ADM IN M.R.#: [id number] Admission: 04/20/17 Attend Phys: Fernanda Gamboa Discharge: Date of : 53 Report #: [id number] bronchogram or consolidation noted. The patient does have trouble with dyspepsia. She had an EGD done in the past showing erosive distal esophagitis. She takes Protonix on a p.r.n. basis. When she was hospitalized in March, she was transferred to [facility] and then subsequently was discharged home about 2 weeks ago. She presented to the Emergency Room with a recent onset chest discomfort that started morning prior to presentation. Otherwise, denies any recent febrile illness, night sweats or chills, productive cough, nausea, vomiting, diarrhea. PAST MEDICAL HISTORY: As mentioned above including morbid obesity, undergoing gastric bypass surgery in 1970s, having lost about 120 pounds; endometrial and cervical cancer, status post hysterectomy in 2011, undergoing chemo and radiation therapy. The patient sustained radiation-induced left renal injury with impaired right renal function; history of erosive distal esophagitis; gastritis; anemia; history of nephrolithiasis, status post lithotripsy; history of heart failure, type not specified; history of C. difficile colitis. PAST SURGICAL HISTORY: As mentioned above including tonsillectomy, open cholecystectomy, total abdominal hysterectomy, bilateral salpingo-oophorectomy in 2012. ALLERGIES: CEPHALEXIN CAUSING SEVERE C. DIFFICILE COLITIS; CONTRAST DYE, MAINLY DUE TO RENAL IMPAIRMENT; NONSTEROIDAL ANTI-INFLAMMATORY AGENTS DUE TO RENAL IMPAIRMENT; TORSEMIDE CAUSES PARESTHESIAS INVOLVING THE RIGHT ARM, SWELLING IN THE RIGHT HAND; TETANUS TOXOID CAUSING EDEMA AND FEVER; PENICILLIN CAUSING C. DIFFICILE COLITIS. HOME MEDICATIONS: Include oxybutynin, Tambocor, DuoNeb, Lovenox, Procrit, opium and belladonna alkaloids, Toprol-XL. FAMILY HISTORY: Father with colon cancer. SOCIAL HISTORY: She is single, lives by herself. She has one brother. She has no children. 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 REVIEW OF SYSTEMS: As mentioned above. Normally, she is ambulatory and she was until prior to admission. Otherwise, 10-point system review negative. PHYSICAL EXAMINATION: GENERAL: She is awake, alert, in no apparent distress. She is currently undergoing hemodialysis. [address] [address] CONSULTATION Name: EDGARDO PEDRAZA Room #: 208-P ADM IN M.R.#: [id number] Admission: 04/20/17 Attend Phys: Sonido Miranda M Discharge: Date of : 53 Report #: [id number] VITAL SIGNS: Temperature is 97.4 degrees Fahrenheit, pulse is 85, respiratory rate is 22, blood pressure 107/42 mmHg. She was hypotensive overnight with a systolic around 76 mmHg, saturation was 100%. HEENT: Normocephalic, atraumatic. NECK: Supple, without any lymphadenopathy or thyromegaly. CHEST: Breath sounds are fair, otherwise no obvious rales or wheezes. CARDIOVASCULAR: Distant heart sounds, otherwise regular rhythm, no obvious murmurs. Pulses are 2+/4+ bilaterally. BREASTS: Deferred. ABDOMEN: Soft, nontender, no organomegaly or masses felt. GENITOURINARY: Deferred. RECTAL: Deferred. EXTREMITIES: Notable for 1-2+ bilateral pretibial edema. No cyanosis or clubbing. LABORATORY DATA: CT chest and chest x-ray reviewed. Chest x-ray shows small lung volumes. CT chest angiogram shows bilateral patchy ground-glass opacities. D-dimer was 3.5. BNP is greater than 70,000. Lactic acid 1.4. CT chest angiogram as mentioned above showing no evidence of pulmonary embolus. A 2D echocardiogram as mentioned above. Troponin is normal. TSH is 0.7. IMPRESSION: 1. Pulmonary hypertension. There has been gradual worsening of pulmonary artery pressures since summer of this year. Etiology is unclear, but suspect secondary. Volume overload with worsening renal failure is likely contributing to increase in pulmonary artery pressures. The patient likely have a component of sleep-related breathing disorder. Cardiovascular disease felt to be less likely. Primary pulmonary hypertension is felt to be less likely. There is no prior history of venous thromboembolic disease. Please see comments below. 2. Hypotension overnight felt to be multifactorial including medications. 3. Acute kidney injury/chronic kidney disease, now undergoing hemodialysis. 4. Chest pain, likely atypical. She does have evidence of reflux esophagitis. Recommend antireflux therapy. 5. Heart failure, likely right sided, suspect a component of cor pulmonale. Agree with diuresis. 6. History of supraventricular tachycardia, on flecainide. Beta blockers have been discontinued. 7. Obesity, status post gastric bypass surgery in 1973. RECOMMENDATION AND DISCUSSION: As mentioned above, the patient will benefit from workup for possible secondary causes of pulmonary hypertension. This would include sleep study, baseline arterial blood gas, PFTs. We will also obtain a V/Q scan once she is euvolemic. Cardiovascular workup will be obtained. Would recommend repeating echocardiogram once fluid status has been stabilized. Her recent raise in pulmonary artery pressure is likely related to volume [facility] [address] [place] [address] CONSULTATION Name: EDGARDO PEDRAZA Room #: 208-P ADM IN M.R.#: [id number] Admission: 04/20/17 Attend Phys: Fernanda Gamboa Discharge: Date of : 53 Report #: [id number] status. I have briefly discussed the pathophysiology of pulmonary hypertension, secondary causes and also primary or idiopathic pulmonary hypertension. We also discussed the diagnosis of pulmonary hypertension requires a right heart cardiac catheterization. This will be discussed further in the near future. Otherwise, the patient is stable from pulmonary standpoint. Some other studies can be done as an outpatient. We will be happy to see the patient in followup in the office. Thank you for this consultation. <ELECTRONICALLY SIGNED> By: Tato Meléndez MD 04/23/17 1338 [id number] [id number] Tato Meléndez MD /shanice
--- NOTE | ~2017-04-20 | H ---
[facility] [place] [address] HISTORY AND PHYSICAL Name: EDGARDO PEDRAZA Room #: 247-P ADM IN M.R.#: [id number] Admission: 04/20/17 Attend Phys: Fernanda Gamboa Discharge: Date of : 53 Report #: [id number] THIS REPORT FOR: //name// CC: Sonido Miranda DATE OF SERVICE: 04/20/2017 CHIEF COMPLAINT: Weakness. HISTORY OF PRESENT ILLNESS: The patient is a 61-year-old female who was admitted through the Emergency Room from home with a 1-2 day complaint of general weakness. She had been in her usual state of health until Thursday night. She just felt very weak while she was out with family. She had to return home and through the night, she felt "warm." There was no documented fever taken. Although yesterday she just felt very weak, but not complaining of any nausea, vomiting, diarrhea, dysuria or any worsening productive cough or shortness of breath. Last night, she had some pain up across her chest and upper back. She felt it was more like a tightness, but did not feel like it was heart related. There was no further fever documented and because of this constellation of symptoms, she presented to the Emergency Room. She was recently diagnosed with end-stage renal disease and started hemodialysis about 3-4 weeks ago. She had a hospital stay here and then was at an LTAC facility where she continued dialysis due to volume overload and renal failure. Ultimately, it appears that a significant amount of fluid weight has been removed and she just went home about 10 days ago. She has had outpatient dialysis 3 times last week and had her metoprolol stopped and her Lasix dose decreased. 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 She has a history of paroxysmal supraventricular tachycardia, history of endometrial and ovarian cancer, treated with hysterectomy, chemo and radiation in 2011. She has had a gastric bypass, cholecystectomy, history of C. diff. She has had some other abdominal infections in the past related to her surgeries. PAST SURGICAL HISTORY: As above. FAMILY HISTORY: Noncontributory. SOCIAL HISTORY: She lives with her sister. No chronic alcohol or tobacco use. ALLERGIES: CEPHALEXIN, NSAIDS, TORSEMIDE, PENICILLIN GAVE A SIDE EFFECT IN THE PAST. MEDICATIONS: DuoNeb, Tylenol, Zofran, oxybutynin, flecainide 100 mg twice a [facility] [address] [place] [address] HISTORY AND PHYSICAL Name: EDGARDO PEDRAZA Room #: 247-P [facility] IN [facility]#: [id number] Admission: 04/20/17 Attend Phys: Fernanda Gamboa Discharge: Date of : 53 Report #: [id number] day, Toprol-XL 25 mg a half tab, Lasix 40 mg twice a day. REVIEW OF SYSTEMS: She denies headache, chest pain, shortness of breath, abdominal pain, nausea, vomiting, diarrhea, constipation, dysuria, syncope. PHYSICAL EXAMINATION: VITAL SIGNS: Temperature 36.7, pulse 90, respirations 22, blood pressure 80/43, O2 sat 90% on room air, 95% on 2 liters. GENERAL: She is awake and alert, in no distress. HEAD AND NECK: Unremarkable. LUNGS: Clear anteriorly. HEART: Regular. ABDOMEN: Soft, normoactive bowel sounds. EXTREMITIES: There is 1+ edema, faint erythema around the right lower leg. NEUROLOGIC: Global strength intact about 3-4/5 throughout. LABORATORY DATA: Reviewed. ASSESSMENT: 1. Hypotension. 2. Leukocytosis. 3. End-stage renal disease. 4. History of paroxysmal supraventricular tachycardia. 5. Anemia of chronic renal disease. 6. Hypoxia. PLAN: She is admitted for supportive measures and further investigation, working diagnosis is possible infection and some empiric antibiotics have been administered in ER including vancomycin and Zosyn. I asked for urine culture as well. I have asked the renal service to manage her kidney disease as well. <ELECTRONICALLY SIGNED> By: Rudolph Benavidez MD 04/21/17 0858 1259 1327 Rudolph Benavidez MD /nt
--- NOTE | ~2017-04-20 | 2DMMODE ---
[facility] [address] [facility] [address] [place] [address] 2 D/M-MODE ECHOCARDIOGRAM Name: EDGARDO PEDRAZA Room #: 247-P ADM IN M.R.#: [id number] Admission: 04/20/17 Attend Phys: Sonido Ivy Discharge: Date of : 53 Date of Service: 04/21/17 0821 Report #: [id number] THIS REPORT FOR: //name// APPROVED REPORT Study performed: 04/21/2017 07:10:46 EXAM: Comprehensive 2D, Doppler, and color-flow Echocardiogram Patient Location: ICU Room #: [facility] Status: routine BSA: 2.08 HR: 75 bpm BP: 84/49 mmHg Rhythm: NSR Other Information Study Quality: Adequate Indications Chest pain. Hx: PSVT, ESRD, morbid obesity. 2D Dimensions RVDd: 45.47 mm LVEF(%): 45.32 (>50%) IVSd: 11.14 (7-11mm) LVOT Diam: 23.47 (18-24mm) LVDd: 51.52 mm PWd: 10.38 (7-11mm) Ascending Ao: 34.26 (22-36mm) LVDs: 39.84 (25-40mm) Aortic Root: 35.03 mm Lee's LVEF: 45.32 % Volumes Left Atrial Volume (Systole) Single Plane 4CH: 81.89 mL Single Plane 2CH: 88.35 mL LA ESV Index: 44.00 mL/m2 Aortic Valve AoV Peak Ricarod.: 1.28 m/s AO Peak Gr.: 6.57 mmHg LVOT Max P.78 mmHg LVOT Max V: 0.83 m/s MELA Vmax: 2.81 cm2 Mitral Valve E/A Ratio: 1.6 MV Decel. Time: 208.60 ms [facility] [place] [address] 2 D/M-MODE ECHOCARDIOGRAM Name: EDGARDO PEDRAZA Room #: 247-P [facility] IN M.R.#: [id number] Admission: 04/20/17 Attend Phys: Sonido Ivy Discharge: Date of : 53 Date of Service: 04/21/17 0821 Report #: [id number] E Max Ricardo.: 1.15 m/s MV A Ricardo.: 0.73 m/s MV PHT: 60.49 ms IVRT: 64.59 ms Pulmonary Valve PV Peak Ricardo.: 0.82 m/s PV Peak Gr.: 2.70 mmHg Pulmonary Vein P Vein S: 0.49 m/s P Vein D: 0.45 m/s P Vein S/D Ratio: 1.09 Tricuspid Valve TR Peak Ricardo.: 3.46 m/s RAP Estimate: 15.00 mmHg TR Peak Gr.: 48.02 mmHg PA Pressure: 63.00 mmHg Left Ventricle The left ventricle is normal size. Flattened septum consistent with right ventricular pressure overload. There is normal left ventricular wall thickness. Left ventricular systolic function is low normal. LVEF is 50-55%. Moderate diastolic dysfunction is present (pseudonormal filling). Right Ventricle Right ventricle is severely dilated. Right ventricle is moderately hypokinetic. Atria Left atrium is mildly dilated. Right atrium is severely dilated. Aortic Valve The aortic valve is normal in structure. Trace aortic regurgitation. There is no aortic valvular stenosis. Mitral Valve The mitral valve is normal in structure. Mild mitral regurgitation. Tricuspid Valve The tricuspid valve is normal in structure. Moderate tricuspid regurgitation. Estimated PAP is 60-65mmHg. Pulmonic Valve [address] [address] 2 D/M-MODE ECHOCARDIOGRAM Name: EDGARDO PEDRAZA Room #: 247-P ADM IN M.R.#: [id number] Admission: 04/20/17 Attend Phys: Sonido Ivy Discharge: Date of : 53 Date of Service: 04/21/17 0821 Report #: [id number] The pulmonary valve is normal in structure. Mild pulmonic regurgitation. Great Vessels The aortic root is normal in size. The ascending aorta is normal in size. IVC is dilated and collapses <50% with inspiration. Pericardium There is no pericardial effusion. <Conclusion> Left ventricular systolic function is low normal. Flattened septum consistent with right ventricular pressure overload. LVEF is 50-55%. Right ventricle and atrium are severely dilated. Right ventricle is hypokinetic. The aortic valve is normal in structure, no aortic valvular stenosis or insufficiency. The mitral valve is normal in structure. Mild mitral regurgitation. Pulmonary artery pressure of 60mmHg There is no pericardial effusion. <ELECTRONICALLY SIGNED> By: Jose Hester MD, FACC 04/21/17820 0 0 Jose Hester MD, FACC /INF
[2017-04-20] MEDS ORDERED: RENA-VITE RX T1 EACH PO (09:31)
[2017-04-20] MEDS ORDERED: LASIX 80 MG TAB80 MG PO (09:34)
[2017-04-20] MEDS ORDERED: ONDANSETRON HCL4 M2 PO (09:35)
[2017-04-20 09:38] LABS: HEMATOCRIT 27.4 % (37.0-47.0); HEMOGLOBIN 8.3 gm/dL (12.0-15.0); MCH 25.3 pg (26.0-34.0); MCHC 30.4 g/dL (28.0-37.0); MCV 83.3 fL (80.0-100.0); RBC 3.29 mil/uL (4.20-5.00); WBC 15.3 thou/uL (4.0-11.0)
[2017-04-20 09:49] LABS: CREATININE 5.7 mg/dL (0.6-1.0); POTASSIUM 4.4 mmol/L (3.5-5.1)
[2017-04-20 09:57] LABS: TROPONIN-I 0.1 ng/mL (<0.06)
[2017-04-21] VITALS (20 sets, daily range): BP systolic 72–107; BP diastolic 33–62
[2017-04-21 04:56] LABS: HEMATOCRIT 26.5 % (37.0-47.0); HEMOGLOBIN 8.1 gm/dL (12.0-15.0); MCH 25.7 pg (26.0-34.0); MCHC 30.7 g/dL (28.0-37.0); MCV 83.9 fL (80.0-100.0); PLATELET COUNT 146 thou/uL (150-400); RBC 3.16 mil/uL (4.20-5.00); RDW 22.3 % (10.5-14.5); WBC 9.4 thou/uL (4.0-11.0)
[2017-04-21 05:03] LABS: MANUAL DIFF YES
[2017-04-21 05:19] LABS: ALBUMIN 1.9 g/dL (3.4-5.0); CALCIUM 7.2 mg/dL (8.5-10.1); PHOSPHORUS 6.3 mg/dL (2.5-4.9); POTASSIUM 4.7 mmol/L (3.5-5.1)
[2017-04-21 06:02] LABS: ABSOLUTE NEUTROPHILS 9.1 thou/uL (1.4-8.2); ANISOCYTOSIS 2+; ATYPICAL LYMPHS 1 %; MACROCYTES 1+; TOTAL CELL COUNT 100
[2017-04-21 11:55] LABS: URINE BILIRUBIN NEGATIVE (Negative); URINE BLOOD TRACE (Negative); URINE COLOR YELLOW; URINE GLUCOSE-RANDOM* NEGATIVE (Negative); URINE KETONES NEGATIVE (Negative); URINE PROTEIN (DIPSTICK) 1+ (Negative); URINE UROBILINOGEN 0.2 E.U./dl (0.2-1.0)
[2017-04-21 11:56] LABS: URINE LEUKOCYTES-REFLEX 1+ (Negative)
[2017-04-21 12:22] LABS: CASTS None Seen /LPF (None Seen); CRYSTALS None Seen /LPF (None Seen); SQUAMOUS 4-10 Moderate /LPF (0-3); URINE RBC 0-2 Rare /HPF (0-2); URINE WBC-REFLEX 6-15 Few /HPF (0-5)
[2017-04-21 12:23] LABS: AMORPHOUS URATES Few /LPF (None Seen)
[2017-04-21 15:42] LABS: ABG SAMPLE TYPE ARTERIAL; BE(vivo) 3.5 mmol/L (-2 to +3); HCO3 28.3 mmol/L (22.0-26.0); LACTATE 0.76 mmol/L (0.5-2.0); O2(CT) 13.4 mL/dL (15.0-23.0); O2Hb 96.2 % (92.0-98.0); PCO2 44.3 mmHg (35.0-45.0); PO2 90.2 mmHg (80.0-100.0); STICK SITE R.RADIAL; pH 7.424 (7.360-7.450); tCO2 29.7 mmol/L (24.0-30.0)
[2017-04-21 15:43] LABS: ABG COMMENT NO COMPLICATIONS.
[2017-04-21 22:07] LABS: HEP B SURFACE Ab(ANTI-HBS Non Reactive (())
[2017-04-22 04:19] VITALS: BP 77/42
[2017-04-22 07:06] LABS: HEMATOCRIT 26.1 % (37.0-47.0); HEMOGLOBIN 8.1 gm/dL (12.0-15.0); MCH 25.6 pg (26.0-34.0); MCV 82.8 fL (80.0-100.0); RBC 3.15 mil/uL (4.20-5.00); RDW 22.2 % (10.5-14.5); WBC 10.8 thou/uL (4.0-11.0)
[2017-04-22 07:51] VITALS: BP 82/42
[2017-04-22 15:25] VITALS: BP 81/33
[2017-04-22 19:45] VITALS: BP 72/33
[2017-04-23] VITALS (7 sets, daily range): BP systolic 81–92; BP diastolic 39–51
[2017-04-23] MEDS ORDERED: MIDODRINE HCL 55 M1 PO (11:00)
== END 2017-04-23 17:23 | disposition home health service (06) | DRG 314 ==
LOC: ER 08:50 → ICU 11:47 → EROBS 11:47 → ICU 13:50 → 2N 04-21 11:08 → ENTRNSPT 04-23 16:47 → 2N 04-23 17:23
PROVIDERS: Emergency Medicine; Hospitalist; Internal Medicine Geriatric Medicine; Internal Medicine Nephrology; Internal Medicine Pulmonary Disease
PROC: 02H633Z Insertion of Infusion Device into Right Atrium, Percutaneous Approach (ICD-10-PCS; principal; 2017-04-20)
PROC: 5A1D70Z Performance of Urinary Filtration, Intermittent, Less than 6 Hours Per Day (ICD-10-PCS; 2017-04-21)
PROC: 5A1D70Z Performance of Urinary Filtration, Intermittent, Less than 6 Hours Per Day (ICD-10-PCS; 2017-04-22)
DX: I27.20 Pulmonary hypertension, unspecified (principal); N18.6 End stage renal disease; J96.01 Acute respiratory failure with hypoxia; J96.02 Acute respiratory failure with hypercapnia; I38 Endocarditis, valve unspecified; N17.9 Acute kidney failure, unspecified; Z68.42 Body mass index [BMI] 45.0-49.9, adult; I13.2 Hypertensive heart and chronic kidney disease with heart failure and with stage 5 chronic kidney disease, or end stage renal disease; E04.1 Nontoxic single thyroid nodule; E87.70 Fluid overload, unspecified; I48.91 Unspecified atrial fibrillation; D63.8 Anemia in other chronic diseases classified elsewhere; E66.01 Morbid (severe) obesity due to excess calories; D72.829 Elevated white blood cell count, unspecified; I95.9 Hypotension, unspecified; I50.9 Heart failure, unspecified; Z90.49 Acquired absence of other specified parts of digestive tract; Z85.41 Personal history of malignant neoplasm of cervix uteri; Z87.442 Personal history of urinary calculi; Z95.5 Presence of coronary angioplasty implant and graft; Z88.0 Allergy status to penicillin; Z88.7 Allergy status to serum and vaccine; Z88.8 Allergy status to other drugs, medicaments and biological substances; Z91.041 Radiographic dye allergy status; Z90.710 Acquired absence of both cervix and uterus; Z90.722 Acquired absence of ovaries, bilateral; Z80.0 Family history of malignant neoplasm of digestive organs; Z92.21 Personal history of antineoplastic chemotherapy; Z91.19 Patient's noncompliance with other medical treatment and regimen; Z79.899 Other long term (current) drug therapy; Z92.3 Personal history of irradiation
CPT/HCPCS: 10078; 10081; 27000; 32100

== ENCOUNTER 2017-05-27 11:29 | Emergency (ER) | payer OTHER, BC ==
[~2017-05-27] VITALS: Ht 154.9 cm; Wt 113.4 kg
--- NOTE | ~2017-05-27 | EKG ---
[place] [address] [place] [address] ELECTROCARDIOGRAM REPORT Name: EDGARDO PEDRAZA [id number] Admission: 05/27/17 Attend Phys: Discharge: 05/27/17 Date of : 53 Report #: [id number] THIS REPORT FOR: //name// [facility] ED Test Date: 2017-05-27 Test Time: 11:32:39 Pat Name: EDGARDO PEDRAZA Department: Room: Gender: F Territory Representative: CARLOS : 1955 Requested By: Colby Mcnair Order Number: [id number] MD: Jose Hester Measurements Intervals [place] Rate: 99 P: -1 UT: 193 QRS: 167 QRSD: 104 T: -33 QT: 350 QTc: 450 Interpretive Statements Sinus rhythm Poor R wave progression Nonspecific T wave abnormality No previous ECGs available for comparison Electronically Signed On 05-28-2017 7:51:15 [employer] by Jose Hester [email or web address] <ELECTRONICALLY SIGNED> By: Jose Hester MD, [facility] 05/28/17 0751 1132 1132 Jose Hester MD, FACC /EPI
[~2017-05-27 11:29] MED LIST changes: +MIDODRINE HCL 55 M1 PO; +RENA-VITE RX T1 EACH PO
[2017-05-27 12:13] LABS: HEMOGLOBIN 9.6 gm/dL (12.0-15.0); MCH 29.1 pg (26.0-34.0); MCHC 31.9 g/dL (28.0-37.0); MCV 91.2 fL (80.0-100.0); PLATELET COUNT 181 thou/uL (150-400); RBC 3.29 mil/uL (4.20-5.00); RDW 19.3 % (10.5-14.5); WBC 7.5 thou/uL (4.0-11.0)
[2017-05-27 12:14] LABS: MANUAL DIFF YES
[2017-05-27 12:19] LABS: ANION GAP 9 mmol/L (7-16); BUN 26 mg/dL (7-18); CALCIUM 8.2 mg/dL (8.5-10.1); CHLORIDE 103 mmol/L (98-107); CO2 30 mmol/L (21-32); CREATININE 3.6 mg/dL (0.6-1.0); GLUCOSE 108 mg/dL (74-106); POTASSIUM 3.7 mmol/L (3.5-5.1); SODIUM 142 mmol/L (136-145)
[2017-05-27 12:28] LABS: TROPONIN-I < 0.04 ng/mL (<0.06)
[2017-05-27 12:32] LABS: ABSOLUTE NEUTROPHILS 5.9 thou/uL (1.4-8.2); ANISOCYTOSIS 2+; POLYCHROMASIA OCCASIONAL; TOTAL CELL COUNT 100
[2017-05-27 12:33] LABS: OVALOCYTES OCCASIONAL
== END 2017-05-27 14:00 | disposition home or self-care (01) ==
LOC: ER 11:29
PROVIDERS: Physician Assistant
DX: I48.91 Unspecified atrial fibrillation (principal); I13.2 Hypertensive heart and chronic kidney disease with heart failure and with stage 5 chronic kidney disease, or end stage renal disease; N18.6 End stage renal disease; I50.9 Heart failure, unspecified; Z90.89 Acquired absence of other organs; Z90.49 Acquired absence of other specified parts of digestive tract; Z87.442 Personal history of urinary calculi; Z86.2 Personal history of diseases of the blood and blood-forming organs and certain disorders involving the immune mechanism; Z88.1 Allergy status to other antibiotic agents; Z91.041 Radiographic dye allergy status; Z88.0 Allergy status to penicillin; Z88.7 Allergy status to serum and vaccine; Z88.8 Allergy status to other drugs, medicaments and biological substances; Z91.19 Patient's noncompliance with other medical treatment and regimen; Z99.2 Dependence on renal dialysis

== ENCOUNTER 2017-07-24 13:49 | Inpatient (IN) | payer OTHER, BC ==
[~2017-07-24] VITALS: Ht 154.9 cm; Wt 101.2 kg
--- NOTE | ~2017-07-24 | D ---
[facility] [place] [address] DISCHARGE SUMMARY Name: EDGARDO PEDRAZA Room #: 355-P [facility] IN M.R.#: [id number] Admission: 07/24/17 Attend Phys: Fernanda Gamboa Discharge: 08/13/17 Date of : 53 Report #: [id number] THIS REPORT FOR: //name// CC: Sonido Miranda FINAL DIAGNOSES: 1. Small-bowel obstruction due to adhesions. 2. Acute Clostridium difficile colitis. 3. End-stage renal disease, on hemodialysis. 4. Pulmonary hypertension. 5. Morbid obesity. HOSPITAL COURSE: The patient was admitted with abdominal pain, initially she was treated conservatively and studies were suggesting a small-bowel obstruction. However, her pain did not improve and she had an elevated white blood cell count, Dr. Grajeda was following and CT did not show improvement in her symptoms, she was taken to the operating room, adhesions were lysed and it appeared the bowel was according to his op note. Please see that separately dictated report. Postoperatively, she had a slow recovery of return of bowel function due to pain at the surgical site. Gradually, she was advanced on to a regular diet, which she was tolerating, diarrhea developed and C. diff colitis was treated and diagnosed. She worked with physical therapy and was progressing well and was not a candidate for inpatient rehabilitation due to her current level of function. PHYSICAL EXAMINATION ON THE DAY OF DISCHARGE: GENERAL: She was awake and alert. VITAL SIGNS: Stable. LUNGS: Clear. HEART: Regular. ABDOMEN: Soft, normoactive bowel sounds. EXTREMITIES: No edema. DISPOSITION: She will be discharged to home with a regular diet, activity as tolerated, home health, outpatient dialysis. Follow up with Dr. Miranda in 2 weeks. MEDICATIONS: Carafate q.i.d. for a week, Lomotil as needed for diarrhea, Tambocor 100 mg b.i.d., Flagyl 500 mg t.i.d. for 2 weeks, midodrine 10 mg t.i.d. and hydrocodone 10 mg p.r.n. pain. <ELECTRONICALLY SIGNED> By: Rudolph Benavidez MD 08/14/17 1540 1041 1214 Rudolph Benavidez MD /nt
--- NOTE | ~2017-07-24 | HC ---
[facility] [place] [address] CONSULTATION Name: EDGARDO PEDRAZA Room #: 238-P ADM IN M.R.#: [id number] Admission: 07/24/17 Attend Phys: Fernanda Gamboa Discharge: Date of : 53 Report #: [id number] THIS REPORT FOR: //name// CC: Sonido Miranda DATE OF SERVICE: 07/28/2017 REASON FOR CONSULTATION: I was asked to evaluate concerning leukocytosis in the setting of abdominal pain and small-bowel obstruction. HISTORY OF PRESENT ILLNESS: The patient was a 62-year-old known history of end-stage renal disease after endometrial cancer, radiation therapy, hysterectomy, nephrolithiasis, radiation cystitis. She has been on hemodialysis since March. She has a right chest dialysis catheter in place. She presents on 07/24/2017 with abdominal pain. Finding on CAT scan showed evidence of suspected partial small-bowel obstruction. She did not improve and went to surgery today for resection of her remnant small bowel following remote gastric bypass surgery. No intraoperative complications. Postoperatively, has remained stable. ALLERGIES: IV CONTRAST, NONSTEROIDAL ANTI-INFLAMMATORIES, DIARRHEA FROM CEPHALOSPORINS AND PENICILLINS. SHE HAD PREVIOUS C. DIFFICILE COLITIS. TETANUS TOXOID, TORSEMIDE. PAST MEDICAL HISTORY: Cholecystectomy, endometrial cancer, renal stones, radiation, gastric bypass, atrophic left kidney, now chronic kidney failure, right chest dialysis catheter. MEDICATIONS: As noted on AUG. She has been on ciprofloxacin and metronidazole today. FAMILY HISTORY: Noncontributory. SOCIAL HISTORY: Nonsmoker, no significant alcohol intake. REVIEW OF SYSTEMS: She has had no cough or sputum production. She now has an NG tube in place. Peripheral IV, no diarrhea. PHYSICAL EXAMINATION: VITAL SIGNS: Afebrile and hemodynamically stable. GENERAL: She was just coming out of surgery, was awake and conversant. CHEST: Clear. HEART: Regular. ABDOMEN: Diffusely tender. Transverse abdominal incision. EXTREMITIES: Unremarkable. [facility] [address] [place] [address] CONSULTATION Name: EDGARDO PEDRAZA Room #: [facility] ADM IN [facility].#: [id number] Admission: 07/24/17 Attend Phys: Fernanda Gamboa Discharge: Date of : 53 Report #: [id number] LABORATORY STUDIES: Hemoglobin 13.2, white count 22,000, 90% segs, 0% bands that is up from 8.8 on admission, platelet count 219,000. Bilirubin 1.1, alkaline phosphatase 135, ALT 10. Sodium 139, potassium 4.3, bicarbonate 22, creatinine 2.7. Urine culture mixed ruthann. Blood cultures negative. CT scan of the abdomen showed renal calculi, atrophic left kidney and small bowel ileus versus obstruction. IMPRESSION: A 62-year-old end-stage renal disease with compromised small bowel from her remnant after bypass. This was resected. Now, is in her early postoperative time. Leukocytosis, I suspect this is related to the compromised small bowel. She has drug intolerances. Recommend continuing dose of vancomycin, ciprofloxacin and metronidazole postoperatively. Repeat CBC in the a.m. <ELECTRONICALLY SIGNED> By: Daniel Miranda MD 07/29/17 1014 [id number] Daniel Miranda MD /nt
--- NOTE | ~2017-07-24 | HC ---
[facility] [place] [address] CONSULTATION Name: EDGARDO PEDRAZA Room #: 238-P ADM IN M.R.#: [id number] Admission: 07/24/17 Attend Phys: Fernanda Gamboa Discharge: Date of : 53 Report #: [id number] THIS REPORT FOR: //name// CC: Sonido Miranda DATE OF SERVICE: 07/25/2017 ATTENDING PHYSICIAN: Dr. Devyn Miranda. REASON FOR CONSULTATION: End-stage renal disease. HISTORY OF PRESENT ILLNESS: The patient is well known to our service, developed severe abdominal pain over several days' duration with dry heaves, no diarrhea or vomiting. The abdominal pain worsened and she came to the Emergency Room. CAT scan showed small bowel pathology and she was admitted. The pain is a little better today. PAST MEDICAL HISTORY: Longstanding chronic kidney disease with development of end-stage renal disease, on chronic dialysis for several months. 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 SOCIAL HISTORY: No cigarettes or alcohol. 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 FAMILY HISTORY: Positive for cancer and heart disease. REVIEW OF SYSTEMS: GENERAL: She had been doing reasonably well except for some swelling. EYES: No trouble with her vision. ENT: Hearing okay and swallows okay. ENDOCRINE: No diabetes or thyroid disease. RESPIRATORY: No shortness of breath, pleuritic pain, cough. CARDIAC: No chest pain or angina. GASTROINTESTINAL: She had the nausea, dry heaves. No diarrhea and the severe abdominal pain as mentioned over several days. GENITOURINARY: She still has pretty good urine output. NEUROLOGIC: There is some peripheral neuropathy. PSYCHIATRIC: Chronic anxiety. PHYSICAL EXAMINATION: GENERAL: Relatively calm patient today. SKIN: Unremarkable. SKELETAL: Quite obese. HEENT: Extraocular movements are full. No scleral icterus. Hearing and vision intact. Mucous membranes slightly dry. NECK: Veins are flat. [facility] [address] [address] CONSULTATION Name: EDGARDO PEDRAZA Room #: 238-P [facility] IN ..#: [id number] Admission: 07/24/17 Attend Phys: Fernanda Gamboa Discharge: Date of : 53 Report #: [id number] CHEST: Completely clear. HEART: Regular. ABDOMEN: Diffusely tender, mostly soft. Bowel sounds are present. EXTREMITIES: Showed 1-2+ edema in the right leg, trace to 1+ edema on the left leg. LABORATORY DATA: Hemoglobin 10.2, white count was 10.2, down to 8.8, platelets 168. Sodium 142, potassium 4.5, chloride 106, bicarbonate 27, creatinine 4, BUN 29. Urinalysis was abnormal with nitrite positive and white cells and bacteria suggesting probable urinary tract infection. ASSESSMENT AND PLAN: 1. End-stage renal disease. Continue on dialysis. She is becoming volume overloaded. We will cut back her IV fluids and dialyze her and take off some fluid. 2. Enteritis with severe abdominal pain, getting better, possible partial bowel obstruction as well. 3. History of [employer] cancer with radiation. 4. Morbid obesity, status post intestinal bypass. 5. Probable urinary tract infection. Cultures will be sent. <ELECTRONICALLY SIGNED> By: Alin Denton MD 07/29/17 1127 1008 1134 Alin Denton MD /nt
--- NOTE | ~2017-07-24 | EKG ---
[place] [address] [facility] [place] [address] ELECTROCARDIOGRAM REPORT Name: EDGARDO PEDRAZA Room #: 433-I ADM IN M.R.#: [id number] Admission: 07/24/17 Attend Phys: Fernanda Gamboa Discharge: Date of : 53 Report #: [id number] THIS REPORT FOR: //name// [facility] ED Test Date: 2017-07-24 Test Time: 15:09:45 Pat Name: EDGARDO PEDRAZA Department: Room: [facility] Gender: F Purchasing Specialist: VIN : 1955 Requested By: Darlyn Norris Order Number: [id number] MD: Jose Hester Measurements Intervals [place] Rate: 84 P: 30 [place]: 225 QRS: 124 QRSD: 115 T: -23 QT: 403 QTc: 477 Interpretive Statements Sinus rhythm Prolonged [place] interval Incomplete right bundle branch block Small inferior Q waves Poor R wave progression T-wave abnormality, consider anterior ischemia Compared to ECG 05/27/2017 11:32:39 First degree AV block now present Electronically Signed On 07-26-2017 15:17:14 KEYBOARDING TEACHER by Jose Hester [email or web address] <ELECTRONICALLY SIGNED> By: Jose Hester MD, [facility] 07/26/17 1517 1509 1509 Jose Hester MD, [facility] /EPI
--- NOTE | ~2017-07-24 | O ---
[facility] [place] [address] OPERATIVE REPORT Name: EDGARDO PEDRAZA Room #: 355-P [facility] IN M.R.#: [id number] Admission: 07/24/17 Attend Phys: Fernanda Gamboa Discharge: 08/13/17 Date of : 53 Report #: [id number] THIS REPORT FOR: //name// CC: Devyn Miranda PREOPERATIVE DIAGNOSES: Abdominal pain, likely partial bowel obstruction from adhesions. POSTOPERATIVE DIAGNOSIS: Abdominal pain secondary to extensive adhesions and bowel kinking. This involved the functionalized small bowel. PROCEDURES PERFORMED: Diagnostic laparoscopy, open laparotomy, extensive lysis of adhesion and small bowel resection. ANESTHESIA: General anesthesia. SURGEON: Mingo Grajeda M.D. COMPLICATIONS: None. ESTIMATED BLOOD LOSS: 500 mL, but difficult to estimate due to moderate amount of ascites. PROCEDURE NOTE: With the patient under general anesthesia, Collins catheter was placed. The patient with renal failure and there is not much urine present. Time-out was performed. Abdomen prepped and draped in sterile fashion. The patient received preoperative Cipro and Flagyl. A small cut-down incision about 2.5 cm made in the left abdomen, slightly above the umbilical level. The patient's abdominal wall was thin. The bowel in the anterior abdomen, left to the umbilicus, is firm feeling. I do not think she has a hernia. Cut-down was performed through the layers. The anterior rectus sheath was incised. 0 Vicryl suture placed on the fascia for retraction. Rectus muscle was spread. Posterior sheath was then grasped. The posterior sheath was opened under visualization. Open cavity was identified in this area. Balloon trocar was placed. Under visualization, laparoscope was placed. The patient did have extensive adhesion. The bowel that was visualized just below this area was reddish and angry. There is quite a bit of fluid, but it is serous color. No bloody fluid. The bowel was irritated, but none looks necrotic At this point, due to the amount of adhesions, I decided that laparoscopic surgery is not going to be viable. Open laparotomy was performed. Transverse incision was made. Because of the thin wall anteriorly, I decided to make a left incision. This would avoid the midline. The incision was carried from the midline to the lateral abdomen on the left side. The fascia layer was opened. Muscle was divided with cautery. The posterior sheath was then opened. Towards the end of the procedure, did make the incision across the midline to the right [address] [address] OPERATIVE REPORT Name: EDGARDO PEDRAZA Room #: 355-P [facility] IN R.#: [id number] Admission: 07/24/17 Attend Phys: Fernanda Gamboa Discharge: 08/13/17 Date of : 53 Report #: [id number] side. This allowed me to examine the right lower abdomen better. The small bowel was identified. The small bowel was thickened. The small bowel was freed. There were a lot of adhesions to it and these adhesions were taken down. I then figured out that this is the small bowel that has bypassed. There was an area proximally that is bent and kinked and had an appearance that it was folded on itself. After this was released, there was still a band prashant over this area. The bowel was followed distally. Again, there were multiple areas of fairly thick and dense adhesions. The bowel was able to be freed. The entire length of the bowel was thickened. Once I freed the adhesions, the bowel did improve in coloration. A reddish angry look was resolved. The ligament of Treitz identified. The bowel was then followed. The thickened bowel did join this proximal bowel and this was actually a stapled off area. This has been defunctionalized. The jejunum was taken down along the right side of the abdomen and into the ileum, from which an end-to-side anastomosis was performed. The small bowel that was originally dissected free was then able to be followed down into this anastomosis. The small bowel was thickened. I am not sure if it was from disuse or if it was is from the adhesions or if it was from radiation. The upper part where the bowel was quite kinked off, I decided to resect this. Mesentery was divided between clamps and ligated with 2-0 Vicryl tie. A 3-0 Vicryl suture was also used. Irrigation was performed. Approximately 2-3 feet of the bowel was removed. The resection was performed using a RAUDEL with a blue staple. Irrigation was performed. No bleedings identified. The posterior sheath was closed with 0 PDS. The anterior sheath was closed with double-stranded 0 Prolene loop fashion. Laterally, the loop was tied to itself. Skin was irrigated. Skin was closed with skin stapler. The patient was awakened and taken to recovery room, having tolerated the procedure well. During the surgery, her blood pressure was running a little bit low in the 80s. After the anesthetic was discontinued, the patient's blood pressure did come up in the 120s. She was awakened in the recovery room. <ELECTRONICALLY SIGNED> By: Mingo Grajeda MD 08/21/17 1426 [id number] Mingo Grajeda MD /nt
--- NOTE | ~2017-07-24 | S ---
[facility] [place] [address] SURGICAL PATH RPT PROCEDURE Name: EDGARDO PEDRAZA Room #: 238-P ADM IN M.R.#: [id number] Admission: 07/24/17 Date of : 53 Discharge: Report #: [id number] Path Case #: [id number] PATHOLOGY REPORT COLLECTION DATE: 07/28/2017 RECEIVED DATE: 07/28/2017 SUBMITTING PHYS: Dr. Mingo Grajeda OTHER PHYS: Dr. Sonido Miranda SPECIMEN(S) RECEIVED: A.Proximal small bowel * * * * * * * * * * * * FINAL DIAGNOSIS: Small bowel, proximal small bowel, resection: - Serosal adhesions with subtle ischemic changes within the mucosa. - Markedly congested small bowel wall. - Negative for dysplasia or malignancy. - Margins of resection unremarkable and viable. (IUV:mml; 07/30/2017) PATHOLOGIST: Sonam Cruz M.D. REPORT ELECTRONICALLY SIGNED BY: Sonam Cruz M.D. DATE/TIME: 07/30/2017 13:19 * * * * * * * * * * * * GROSS PATHOLOGY: The specimen is received in formalin, labeled "Edgardo Pedraza, proximal small bowel," and consists of an unoriented and previously opened segment of small intestine measuring 62.5 x 2.7 cm with fat lining the entire specimen measuring up to 4.8 cm. Both margins are stapled closed. The serosa is purple-bang and smooth with three areas where the serosal wall is markedly thin. 18.8 cm from one stapled margin is a back to back wall adhesion. The mucosa is pink-bang with its normal folds except for the areas of serosal thinning where the folds are smooth and flattened. No masses or lesions are identified. Sectioning the fat reveals no grossly identifiable lymph nodes. Represent sections submitted as follows: A1: Stapled margins A2-A3: Serosal adhesion A4: Serosal thinning A5: Unremarkable mucosa (SDY; 07/29/2017) CLINICAL HISTORY: [address] [address] SURGICAL PATH RPT PROCEDURE Name: EDGARDO PEDRAZA Room #: [facility]- ADM IN M.R.#: [id number] Admission: 07/24/17 Date of : 53 Discharge: Report #: [id number] Path Case #: [id number] Abdominal pain, adhesions INITIAL CPT CODE(S): A; 03914 Professional services performed by [facility] at [address] , [place] [address] Technical services performed by [facility] at [address] [place] [address], [facility] [address] [address]. [facility] [address] [place] [id number] PHONE: [phone] DIRECTOR: Kailash Newsome M.D. * * * END OF REPORT * * *
--- NOTE | ~2017-07-24 | H ---
[facility] [place] [address] HISTORY AND PHYSICAL Name: EDGARDO PEDRAZA Room #: 355-P [facility] IN M.R.#: [id number] Admission: 07/24/17 Attend Phys: Fernanda Gamboa Discharge: 08/13/17 Date of : 53 Report #: [id number] THIS REPORT FOR: //name// CC: Sonido Miranda DATE OF SERVICE: 07/24/2017 HISTORY OF PRESENT ILLNESS: This is a 62-year-old female with abdominal pain starting on Thursday. She is a patient well known to my service, who has a background remote history of gastrointestinal bypass surgery as a young lady. She also has had endometrial cancer approximately 10 years ago with no evidence of recurrence. She recently has been having difficulty with swelling and ended up with the need for dialysis and now has been committed 3 time a week schedule. On Thursday, she began to notice the onset of abdominal pain. There was no diarrhea. There was some vomiting, but the pain continued to the point that she could not be comfortable. She called me and then presented to the Emergency Room. She has not really had any fevers or chills or sweats. She has had no evidence of blood loss. PAST MEDICAL HISTORY: Noteworthy for those findings in the HPI plus she has had a cholecystectomy. She has had a previous history of endometrial cancer as noted, she has had renal stones in the past. PAST SURGICAL HISTORY: She has an atrophic left kidney because of the treatment for her endometrial cancer. HOME MEDICATIONS: List includes midodrine, acetaminophen, oxybutynin, flecainide for SVT. ALLERGIES: CEPHALEXIN, IV CONTRAST, BOTH ORAL AND IV, BUT AT THIS POINT ON DIALYSIS WAS NOT MUCH OF AN ISSUE, NONSTEROIDALS, TORSEMIDE, PENICILLIN GROUP. SOCIAL HISTORY: She does not smoke. Social alcohol use. REVIEW OF SYSTEMS: Really denies chest discomfort, shortness of breath. Her main issue right now is abdominal pain. PHYSICAL EXAMINATION: GENERAL: Shows her to be lying in bed. She is in mild distress. VITAL SIGNS: However, were stable. HEENT: Otherwise, negative. NECK: Supple, without thyromegaly or adenopathy. CHEST: Clear. CARDIOVASCULAR: Shows a regular rate and rhythm without murmur. ABDOMEN: Showed bowel sounds to be present. The abdomen was nondistended. She was very tender to palpation in the lower abdomen with peritoneal signs. [address] [address] HISTORY AND PHYSICAL Name: EDGARDO PEDRAZA Room #: 355-P [facility] IN M.R.#: [id number] Admission: 07/24/17 Attend Phys: Fernanda Gamboa Discharge: 08/13/17 Date of : 53 Report #: [id number] EXTREMITIES: No cyanosis, clubbing or edema. NEUROLOGIC: Shows her to be awake and alert. No focal findings. LABORATORY DATA: She has a positive UA for leukocyte esterase. Creatinine is 4.1, glucose 149. Troponin negative. White count 10.2 with a hemoglobin of 12.2. ASSESSMENT: After reviewing the CT images. It seems that there is an inflammatory process involving her small bowel whether this is adhesive bowel disease and early obstruction or enteritis or vascular is not clear. This study was limited because of no contrast either IV or oral. Seems atypical to me for a viral gastroenteritis. Comorbid conditions remote history of endometrial cancer along with morbid obesity, end-stage renal disease with dialysis and supraventricular tachycardia. We will have Surgery see the patient, admitted to the hospital. <ELECTRONICALLY SIGNED> By: Sonido Miranda MD 09/01/17 1244 1804 1919 Sonido Miranda MD /[facility]
[2017-07-24 13:50] VITALS: BP 135/70
[2017-07-24 15:37] LABS: ABSOLUTE NEUTROPHILS 9.2 thou/uL (1.4-8.2); BASOPHILS 0.5 % (0.0-2.0); EOSINOPHILS 0.3 % (0.0-3.0); HEMOGLOBIN 12.2 gm/dL (12.0-15.0); LYMPHOCYTES 5.3 % (24.0-44.0); MCH 30.3 pg (26.0-34.0); MCHC 33.1 g/dL (28.0-37.0); MCV 91.5 fL (80.0-100.0); MONOCYTES 3.2 % (1.0-8.0); PLATELET COUNT 168 thou/uL (150-400); POLYS 90.7 % (36.0-66.0); RBC 4.05 mil/uL (4.20-5.00); RDW 15.5 % (10.5-14.5); WBC 10.2 thou/uL (4.0-11.0)
[2017-07-24 15:45] LABS: CALCIUM 9.5 mg/dL (8.5-10.1); CREATININE 4.1 mg/dL (0.6-1.0); POTASSIUM 4.4 mmol/L (3.5-5.1)
[2017-07-24 15:51] LABS: ALBUMIN 3.2 g/dL (3.4-5.0); TOTAL BILIRUBIN 0.5 mg/dL (<0.1-1.0); TOTAL PROTEIN 7.7 g/dL (6.4-8.2)
[2017-07-24 16:23] LABS: URINE BILIRUBIN NEGATIVE (Negative); URINE BLOOD 1+ (Negative); URINE CLARITY CLOUDY; URINE COLOR YELLOW; URINE GLUCOSE-RANDOM* NEGATIVE (Negative); URINE KETONES 1+ (Negative); URINE LEUKOCYTES 3+ (Negative); URINE NITRITE POSITIVE (Negative); URINE PROTEIN (DIPSTICK) 2+ (Negative); URINE SPECIFIC GRAVITY 1.015 (1.005-1.035); URINE UROBILINOGEN 0.2 E.U./dl (0.2-1.0)
[2017-07-24 16:28] LABS: SQUAMOUS 0-3 Few /LPF (0-3); URINE WBC >25 Many /HPF (0-5)
[2017-07-24 16:29] LABS: AMORPHOUS URATES Few /LPF (None Seen); CASTS None Seen /LPF (None Seen); URINE RBC 3-10 Few /HPF (0-2)
[2017-07-24 19:45] VITALS: BP 121/68
[2017-07-24 21:00] VITALS: BP 109/61
[2017-07-25 02:57] VITALS: BP 110/61
[2017-07-25 03:51] LABS: ABSOLUTE NEUTROPHILS 7.1 thou/uL (1.4-8.2); BASOPHILS 0.4 % (0.0-2.0); EOSINOPHILS 0.4 % (0.0-3.0); HEMATOCRIT 31.7 % (37.0-47.0); LYMPHOCYTES 11.7 % (24.0-44.0); MCH 30.2 pg (26.0-34.0); MCHC 32.3 g/dL (28.0-37.0); MCV 93.4 fL (80.0-100.0); MONOCYTES 6.4 % (1.0-8.0); PLATELET COUNT 168 thou/uL (150-400); POLYS 81.1 % (36.0-66.0); RBC 3.39 mil/uL (4.20-5.00); WBC 8.8 thou/uL (4.0-11.0)
[2017-07-25 03:57] LABS: CALCIUM 8.7 mg/dL (8.5-10.1); POTASSIUM 4.5 mmol/L (3.5-5.1)
[2017-07-25 04:04] LABS: HEMOGLOBIN 10.2 gm/dL (12.0-15.0)
[2017-07-25 08:15] VITALS: BP 116/56
[2017-07-25 16:30] VITALS: BP 126/66
[2017-07-25 20:20] VITALS: BP 138/82
[2017-07-26 00:05] LABS: HEP B SURFACE Ab(ANTI-HBS Non Reactive (()); HEPATITIS B SURFACE AG Negative (Negative)
[2017-07-26 00:08] VITALS: BP 127/65
[2017-07-26 04:48] VITALS: BP 115/55
[2017-07-26 08:00] VITALS: BP 106/52
[2017-07-26 16:00] VITALS: BP 97/54
[2017-07-26 19:53] VITALS: BP 102/60
[2017-07-27 00:01] VITALS: BP 121/53
[2017-07-27] MEDS ORDERED: SYNTHROID100 MCG PO (00:22)
[2017-07-27] MEDS ORDERED: ASPIRIN325 PO (00:23)
[2017-07-27 04:24] VITALS: BP 123/47
[2017-07-27 05:49] LABS: ALBUMIN 2.4 g/dL (3.4-5.0); CALCIUM 8.2 mg/dL (8.5-10.1); CREATININE 3.7 mg/dL (0.6-1.0); PHOSPHORUS 4.3 mg/dL (2.5-4.9); POTASSIUM 4.2 mmol/L (3.5-5.1)
[2017-07-27 07:40] VITALS: BP 104/59
[2017-07-27 16:05] VITALS: BP 136/49
[2017-07-27 19:19] VITALS: BP 150/81
[2017-07-28] VITALS (20 sets, daily range): BP systolic 98–135; BP diastolic 58–78
[2017-07-28 06:15] LABS: HEMOGLOBIN 13.5 gm/dL (12.0-15.0); MCHC 32.1 g/dL (28.0-37.0); MCV 93.5 fL (80.0-100.0); RBC 4.5 mil/uL (4.20-5.00); RDW 16.3 % (10.5-14.5); WBC 21.9 thou/uL (4.0-11.0)
[2017-07-28 06:24] LABS: POTASSIUM 4.3 mmol/L (3.5-5.1)
[2017-07-28 06:25] LABS: CREATININE 2.7 mg/dL (0.6-1.0)
[2017-07-28 11:14] LABS: HEMATOCRIT 41.4 % (37.0-47.0); HEMOGLOBIN 13.2 gm/dL (12.0-15.0); MCH 29.5 pg (26.0-34.0); MCHC 31.9 g/dL (28.0-37.0); MCV 92.3 fL (80.0-100.0); PLATELET COUNT 219 thou/uL (150-400); RBC 4.49 mil/uL (4.20-5.00); RDW 16.1 % (10.5-14.5); WBC 22.1 thou/uL (4.0-11.0)
[2017-07-28 11:24] LABS: ALBUMIN 2.6 g/dL (3.4-5.0); DIRECT BILIRUBIN 0.6 mg/dL (<0.1-0.3); TOTAL BILIRUBIN 1.1 mg/dL (<0.1-1.0); TOTAL PROTEIN 6.4 g/dL (6.4-8.2)
[2017-07-28 11:39] LABS: ABSOLUTE NEUTROPHILS 19.9 thou/uL (1.4-8.2); METAMYELOCYTES 1 %
[2017-07-28 11:40] LABS: ANISOCYTOSIS 1+; POLYCHROMASIA OCCASIONAL
[2017-07-29] VITALS (25 sets, daily range): BP systolic 89–126; BP diastolic 55–75
[2017-07-29 04:40] LABS: HEMATOCRIT 38.2 % (37.0-47.0); HEMOGLOBIN 12.2 gm/dL (12.0-15.0); MCH 29.8 pg (26.0-34.0); MCHC 31.9 g/dL (28.0-37.0); MCV 93.2 fL (80.0-100.0); RBC 4.1 mil/uL (4.20-5.00); RDW 16.5 % (10.5-14.5); WBC 22.7 thou/uL (4.0-11.0)
[2017-07-29 04:44] LABS: CALCIUM 8.2 mg/dL (8.5-10.1); CREATININE 3.4 mg/dL (0.6-1.0); POTASSIUM 4.5 mmol/L (3.5-5.1)
[2017-07-30] VITALS (31 sets, daily range): BP systolic 81–125; BP diastolic 47–71
[2017-07-30 05:55] LABS: HEMATOCRIT 34.7 % (37.0-47.0); HEMOGLOBIN 10.9 gm/dL (12.0-15.0); MCH 29.5 pg (26.0-34.0); MCHC 31.5 g/dL (28.0-37.0); MCV 93.5 fL (80.0-100.0); RBC 3.71 mil/uL (4.20-5.00); RDW 16.3 % (10.5-14.5); WBC 17.6 thou/uL (4.0-11.0)
[2017-07-30 06:10] LABS: ALBUMIN 1.8 g/dL (3.4-5.0); CALCIUM 8.4 mg/dL (8.5-10.1); CREATININE 3.7 mg/dL (0.6-1.0); PHOSPHORUS 4.7 mg/dL (2.5-4.9); POTASSIUM 4.6 mmol/L (3.5-5.1)
[2017-07-31 00:01] VITALS: BP 103/68
[2017-07-31 03:14] LABS: ALBUMIN 1.6 g/dL (3.4-5.0); CALCIUM 8.1 mg/dL (8.5-10.1); PHOSPHORUS 3.5 mg/dL (2.5-4.9); POTASSIUM 4.5 mmol/L (3.5-5.1)
[2017-07-31 03:16] LABS: CREATININE 2.4 mg/dL (0.6-1.0)
[2017-07-31 04:00] VITALS: BP 110/71
[2017-07-31 08:17] VITALS: BP 102/69
[2017-07-31 12:00] VITALS: BP 100/67
[2017-07-31 16:00] VITALS: BP 113/62
[2017-07-31 20:00] VITALS: BP 95/64
[2017-08-01 04:00] VITALS: BP 93/61
[2017-08-01 04:28] LABS: ABSOLUTE NEUTROPHILS 12.3 thou/uL (1.4-8.2); BASOPHILS 0.1 % (0.0-2.0); EOSINOPHILS 0.3 % (0.0-3.0); HEMATOCRIT 31.9 % (37.0-47.0); HEMOGLOBIN 10.1 gm/dL (12.0-15.0); LYMPHOCYTES 3.1 % (24.0-44.0); MCH 29.6 pg (26.0-34.0); MCHC 31.6 g/dL (28.0-37.0); MCV 93.5 fL (80.0-100.0); MONOCYTES 8.3 % (1.0-8.0); PLATELET COUNT 166 thou/uL (150-400); POLYS 88.2 % (36.0-66.0); RBC 3.41 mil/uL (4.20-5.00); RDW 15.9 % (10.5-14.5); WBC 13.9 thou/uL (4.0-11.0)
[2017-08-01 08:05] VITALS: BP 131/59; BP 96/57
[2017-08-01 15:57] VITALS: BP 105/61
[2017-08-01 20:17] VITALS: BP 93/52
[2017-08-01 22:10] VITALS: BP 94/49
[2017-08-02] VITALS (7 sets, daily range): BP systolic 84–97; BP diastolic 44–57
[2017-08-02 11:35] LABS: HEMATOCRIT 30.1 % (37.0-47.0); HEMOGLOBIN 9.6 gm/dL (12.0-15.0); MCH 29.8 pg (26.0-34.0); MCHC 31.9 g/dL (28.0-37.0); MCV 93.4 fL (80.0-100.0); PLATELET COUNT 157 thou/uL (150-400); RBC 3.23 mil/uL (4.20-5.00); RDW 15.9 % (10.5-14.5); WBC 8.3 thou/uL (4.0-11.0)
[2017-08-02 12:21] LABS: ABSOLUTE NEUTROPHILS 7.5 thou/uL (1.4-8.2); ANISOCYTOSIS 1+
[2017-08-03 04:09] VITALS: BP 86/54
[2017-08-03 07:44] VITALS: BP 109/55
[2017-08-03 12:14] VITALS: BP 71/43
[2017-08-03 15:43] VITALS: BP 90/47
[2017-08-03 20:00] VITALS: BP 88/52
[2017-08-04 04:00] VITALS: BP 88/56
[2017-08-04 08:26] VITALS: BP 109/54
[2017-08-04 12:12] VITALS: BP 92/43
[2017-08-04 17:34] VITALS: BP 107/62
[2017-08-04 20:20] VITALS: BP 103/59
[2017-08-05 04:40] VITALS: BP 96/49
[2017-08-05 08:29] VITALS: BP 95/51
[2017-08-05 17:00] VITALS: BP 107/55
[2017-08-05 20:20] VITALS: BP 94/51
[2017-08-06 04:30] VITALS: BP 85/43
[2017-08-06 06:00] LABS: HEMATOCRIT 27.2 % (37.0-47.0); MCH 30.5 pg (26.0-34.0); MCHC 33.2 g/dL (28.0-37.0); MCV 91.7 fL (80.0-100.0); PLATELET COUNT 199 thou/uL (150-400); RBC 2.96 mil/uL (4.20-5.00); RDW 15.7 % (10.5-14.5); WBC 6.7 thou/uL (4.0-11.0)
[2017-08-06 06:18] LABS: ALBUMIN 1.7 g/dL (3.4-5.0); CALCIUM 7.8 mg/dL (8.5-10.1); PHOSPHORUS 2.3 mg/dL (2.5-4.9)
[2017-08-06 06:34] LABS: URINE BILIRUBIN NEGATIVE (Negative); URINE BLOOD TRACE (Negative); URINE COLOR YELLOW; URINE GLUCOSE-RANDOM* NEGATIVE (Negative); URINE KETONES TRACE (Negative); URINE LEUKOCYTES-REFLEX TRACE (Negative); URINE NITRITE-REFLEX POSITIVE (Negative); URINE PROTEIN (DIPSTICK) 2+ (Negative); URINE SPECIFIC GRAVITY 1.025 (1.005-1.035); URINE UROBILINOGEN 0.2 E.U./dl (0.2-1.0)
[2017-08-06 06:35] LABS: URINE CLARITY HAZY
[2017-08-06 07:16] LABS: HYALINE CASTS 0-3 Few /LPF (None Seen)
[2017-08-06 07:17] LABS: COARSE GRANULAR CASTS 0-3 Few /LPF (None Seen); FINE GRANULAR CASTS 0-3 Few /LPF (None Seen); SQUAMOUS >10 Many /LPF (0-3); URINE RBC 0-2 Rare /HPF (0-2); URINE WBC-REFLEX >25 Many /HPF (0-5)
[2017-08-06 07:18] LABS: BACTERIA-REFLEX >30 Many /HPF (None Seen); CRYSTALS None Seen /LPF (None Seen)
[2017-08-06 07:19] LABS: YEAST-REFLEX Present (None Seen)
[2017-08-06 08:08] VITALS: BP 99/46
[2017-08-06 08:16] LABS: ABSOLUTE NEUTROPHILS 5.4 thou/uL (1.4-8.2); ATYPICAL LYMPHS 1 %; METAMYELOCYTES 1 %
[2017-08-06 08:17] LABS: ANISOCYTOSIS 1+
[2017-08-06 16:39] VITALS: BP 92/46
[2017-08-06 20:00] VITALS: BP 91/57
[2017-08-07 04:00] VITALS: BP 98/56
[2017-08-07 07:55] VITALS: BP 89/46
[2017-08-07 11:04] VITALS: BP 82/48
[2017-08-07 14:08] VITALS: BP 82/48
[2017-08-07 19:12] VITALS: BP 102/61
[2017-08-08 04:07] VITALS: BP 92/51
[2017-08-08 07:50] VITALS: BP 99/57
[2017-08-08 12:00] VITALS: BP 89/52
[2017-08-08 16:14] VITALS: BP 82/49
[2017-08-08 19:45] VITALS: BP 94/49; BP 94/99
[2017-08-09 04:30] VITALS: BP 91/46
[2017-08-09 06:10] LABS: HEMATOCRIT 26.3 % (37.0-47.0); HEMOGLOBIN 8.5 gm/dL (12.0-15.0); MCH 29.8 pg (26.0-34.0); MCHC 32.4 g/dL (28.0-37.0); MCV 91.9 fL (80.0-100.0); RBC 2.87 mil/uL (4.20-5.00); RDW 15.7 % (10.5-14.5); WBC 6.5 thou/uL (4.0-11.0)
[2017-08-09 06:32] LABS: ALBUMIN 1.8 g/dL (3.4-5.0); MAGNESIUM 1.6 mg/dL (1.8-2.4); PHOSPHORUS 2.9 mg/dL (2.5-4.9)
[2017-08-09 06:42] LABS: POTASSIUM 2.9 mmol/L (3.5-5.1)
[2017-08-09 10:22] VITALS: BP 114/82
[2017-08-09 17:36] VITALS: BP 126/68
[2017-08-09 19:08] VITALS: BP 101/49
[2017-08-10] VITALS (7 sets, daily range): BP systolic 53–120; BP diastolic 47–75
[2017-08-11 04:00] VITALS: BP 103/54
[2017-08-11 08:15] VITALS: BP 92/43
[2017-08-11 12:50] VITALS: BP 105/52
[2017-08-11 20:30] VITALS: BP 86/41
[2017-08-11 21:00] VITALS: BP 111/56
[2017-08-12 04:30] VITALS: BP 106/62
[2017-08-12 07:07] LABS: ALBUMIN 2.2 g/dL (3.4-5.0); CALCIUM 8.4 mg/dL (8.5-10.1); PHOSPHORUS 2.7 mg/dL (2.5-4.9); POTASSIUM 3.7 mmol/L (3.5-5.1)
[2017-08-12 08:20] VITALS: BP 108/58
[2017-08-12 11:26] VITALS: BP 99/58
[2017-08-12 15:50] VITALS: BP 122/61
[2017-08-12 20:20] VITALS: BP 100/55
[2017-08-13 03:45] VITALS: BP 100/58
[2017-08-13 08:52] VITALS: BP 91/53
[2017-08-13] MEDS ORDERED: MIDODRINE HCL 55 M1 PO (10:34)
[2017-08-13] MEDS ORDERED: FLAGYL500 MG PO (10:34)
[2017-08-13] MEDS ORDERED: TAMBOCOR 100 M100 M1 PO (10:35)
[2017-08-13] MEDS ORDERED: LOMOTIL TABLET1 EACH PO (10:35)
[2017-08-13] MEDS ORDERED: NORCO 10-325 T1 EACH PO (10:35)
[2017-08-13] MEDS ORDERED: CARAFATE 1 GM TA1 G1 PO (10:35)
[2017-08-13] MEDS ORDERED: COLESTIPOL HCL1 G1 PO (10:36)
[2017-08-13 10:47] VITALS: BP 82/48
[2017-08-13 11:45] VITALS: BP 105/61
[2017-08-13 15:23] VITALS: BP 111/64
[2018-04-14] MEDS ORDERED: ASPIR 8181 MG PO (15:48)
[2018-04-14] MEDS ORDERED: ATIVAN0.5 MG PO (15:52)
[2018-04-14] MEDS ORDERED: FLECAINIDE ACET50 M1 PO (16:17)
[2018-04-14] MEDS ORDERED: MIDODRINE HCL 55 M1 PO (16:17)
== END 2017-08-13 16:53 | disposition home health service (06) | DRG 329 ==
LOC: ER 13:49 → 4S 17:04 → EROBS 17:04 → 4S 20:06 → ICU 07-28 19:51 → 3W 07-31 17:40 → ENTRNSPT 08-13 16:40 → 3W 08-13 16:53
PROVIDERS: Hospitalist; Internal Medicine Geriatric Medicine; Internal Medicine Nephrology; Nurse Practitioner Family; Specialist; Surgery
PROC: 5A1D70Z Performance of Urinary Filtration, Intermittent, Less than 6 Hours Per Day (ICD-10-PCS; 2017-07-25)
PROC: 0DB80ZZ Excision of Small Intestine, Open Approach (ICD-10-PCS; principal; 2017-07-28)
PROC: 0DN80ZZ Release Small Intestine, Open Approach (ICD-10-PCS; principal; 2017-07-28)
PROC: 5A1D70Z Performance of Urinary Filtration, Intermittent, Less than 6 Hours Per Day (ICD-10-PCS; 2017-07-30)
PROC: 5A1D70Z Performance of Urinary Filtration, Intermittent, Less than 6 Hours Per Day (ICD-10-PCS; 2017-08-01)
PROC: 5A1D70Z Performance of Urinary Filtration, Intermittent, Less than 6 Hours Per Day (ICD-10-PCS; 2017-08-03)
PROC: 5A1D70Z Performance of Urinary Filtration, Intermittent, Less than 6 Hours Per Day (ICD-10-PCS; 2017-08-05)
PROC: 5A1D70Z Performance of Urinary Filtration, Intermittent, Less than 6 Hours Per Day (ICD-10-PCS; 2017-08-07)
PROC: 5A1D70Z Performance of Urinary Filtration, Intermittent, Less than 6 Hours Per Day (ICD-10-PCS; 2017-08-10)
PROC: 5A1D70Z Performance of Urinary Filtration, Intermittent, Less than 6 Hours Per Day (ICD-10-PCS; 2017-08-12)
DX: K56.51 Intestinal adhesions [bands], with partial obstruction (principal); N18.6 End stage renal disease; E43 Unspecified severe protein-calorie malnutrition; Z68.41 Body mass index [BMI] 40.0-44.9, adult; A04.72 Enterocolitis due to Clostridium difficile, not specified as recurrent; N30.40 Irradiation cystitis without hematuria; I50.9 Heart failure, unspecified; E66.01 Morbid (severe) obesity due to excess calories; I27.20 Pulmonary hypertension, unspecified; I95.9 Hypotension, unspecified; B96.5 Pseudomonas (aeruginosa) (mallei) (pseudomallei) as the cause of diseases classified elsewhere; E11.22 Type 2 diabetes mellitus with diabetic chronic kidney disease; E87.6 Hypokalemia; Z90.49 Acquired absence of other specified parts of digestive tract; Z98.84 Bariatric surgery status; Z99.2 Dependence on renal dialysis; Z79.899 Other long term (current) drug therapy; Z88.6 Allergy status to analgesic agent; Z88.0 Allergy status to penicillin; Z88.8 Allergy status to other drugs, medicaments and biological substances; Z88.7 Allergy status to serum and vaccine; Z91.041 Radiographic dye allergy status; Z90.710 Acquired absence of both cervix and uterus; Z80.9 Family history of malignant neoplasm, unspecified; Z82.49 Family history of ischemic heart disease and other diseases of the circulatory system; Z87.442 Personal history of urinary calculi; Z28.21 Immunization not carried out because of patient refusal
CPT/HCPCS: 10078; 10195; 10879; 32100; 50010; 50101; 50411; 50455; 50555; 50558; 51301; 51390; 51391; 51412; 53065; 53307; 53310; 56462; 56524; 56525; 56530; 62110; 62900; 70005

== ENCOUNTER → 2018-04-01 | Outpatient (CLI) | payer OTHER, BC ==
[~2018-04-01] MED LIST changes: +ASPIRIN325 PO; +CARAFATE 1 GM TA1 G1 PO; +COLESTIPOL HCL1 G1 PO; +FLAGYL500 MG PO; +LOMOTIL TABLET1 EACH PO; +SYNTHROID100 MCG PO
== END ==
LOC: RAD 10:52
DX: M47.895 Other spondylosis, thoracolumbar region (principal); M40.295 Other kyphosis, thoracolumbar region; M25.561 Pain in right knee; M25.562 Pain in left knee

== ENCOUNTER → 2018-04-06 | Outpatient (CLI) | payer OTHER, BC | LOC: CAT 15:00 | DX: K43.9 Ventral hernia without obstruction or gangrene (principal); N26.1 Atrophy of kidney (terminal); N20.0 Calculus of kidney ==

== ENCOUNTER 2018-04-20 05:31 | Day surgery (SDC) | payer OTHER, BC ==
[~2018-04-20] VITALS: Ht 152.4 cm; Wt 91.6 kg
--- NOTE | ~2018-04-20 | O ---
[facility] [place] [address] OPERATIVE REPORT Name: EDGARDO PEDRAZA Room #: [facility] M.R.#: [id number] Admission: 04/20/18 Attend Phys: Mingo Grajeda MD Discharge: 04/20/18 Date of : 53 Report #: [id number] THIS REPORT FOR: //name// CC: DUNG Grajeda DATE OF SERVICE: 04/20/2018 PREOPERATIVE DIAGNOSIS: Right lower quadrant mass. POSTOPERATIVE DIAGNOSIS: Right lower quadrant mass. PROCEDURE PERFORMED: Excision of right lower quadrant mass located in the subcutaneous tissue, ellipse measuring 7 x 12 cm. ANESTHESIA: IV sedation, local 0.25% Marcaine. COMPLICATIONS: None. ESTIMATED BLOOD LOSS: 5 mL SURGEON: Mingo Grajeda M.D. PROCEDURE NOTE: With the patient under IV sedation, abdomen was prepped and draped in sterile fashion. Timeout was performed. Marking pen was used to draw out the ellipse where the mass was situated. This was underneath the skin. There was a deeper thickened tissue, which was seen on CAT scan and from this. The skin was excised in elliptical manner. The width of ellipse is about 12 cm and the craniocaudad dimension of the ellipse is about 7 cm. After incising through the skin and subcutaneous tissue, cautery was used to obtain hemostasis and also for dissection. Posteriorly, there was some thickened tissue, but no residual mass left. The mass was completely removed. This includes the overlying skin. I am not sure what this is, could be area of fat necrosis. Suture was placed superolaterally for orientation. Specimen was sent to pathology. Subcutaneous tissue was brought together with 3-0 PDS. Skin was closed with 4-0 PDS running subcuticular fashion. Dermabond was applied, 4 x 4, OpSite used for dressing. By: [id number] Mingo Grajeda MD /nt
--- NOTE | ~2018-04-20 | PATH ---
[facility] [address] [place] [address] PATHOLOGY RPT PROCEDURE Name: EDGARDO PEDRAZA Room #: DEP [facility] M.R.#: [id number] Admission: 04/20/18 Date of : 53 Discharge: 04/20/18 Report #: [id number] Path Case #: [id number] LCA Accession Number: [id number] . 01 Material submitted: . RIGHT LOWER QUADRANT ABDOMINAL MASS . 01 Clinical history: . Mass abdomen . 02 Diagnosis: Mass, right lower quadrant abdominal mass, excision: - Lesion comprised of mature adipose tissue along with inflammation. - Associated dystrophic calcifications, fat necrosis and fibrinoid degeneration as well as inflammatory changes. - Ulceration along with gangrenous necrosis of overlying squamous epithelium. - Negative for malignancy. LBQ/04/23/2018 . 02 Comment: Examination shows a mass comprised of mature adipose tissue showing dystrophic calcifications and acute inflammation within the excision. The surrounding fibrovascular tissue shows necrotic changes, extravasated red cells, acute inflammation as well as fibrinoid degeneration, consistent with repair. A GMS fungal special stain is performed on block A4 and it shows no fungal hyphal elements identified. (IUV/db; 04/22/18) . 02 Electronically signed: . Sonam Cruz MD, Pathologist NPI- [id number] . 01 Gross description: . Received in formalin labeled "Edgardo Pedraza, right lower quadrant abdominal mass, short stitch superior, long stitch lateral," is a large elliptical skin excision specimen with attached underlying soft tissue measuring 13.4 x 6.1 x 3.4 cm in greatest dimensions. A short suture is present along one edge designating the superior aspect, which is further designated as the 12:00 aspect. A long suture is present at one tip designating the lateral aspect, which is further designated as the 9:00 aspect. The epidermal surface displays a centrally located area of light bang-brown, roughened discoloration measuring 4.4 x 2.9 cm that grossly appears to extend to/abut the 6:00 surgical margin; this area palpates as indurated. This roughened area contains multiple foci of dark brown discoloration extending towards the 6:00 aspect. The specimen is inked as follows: 12:00 to 3:00-yellow, 3:00 to 9:00- black, 9:00 to 12:00[place] [address] PATHOLOGY RPT PROCEDURE Name: EDGARDO PEDRAZA Room #: DEP [facility] Tapan#: [id number] Admission: 04/20/18 Date of : 53 Discharge: 04/20/18 Report #: [id number] Path Case #: [id number] Serial sectioning reveals partially indurated, pale yellow to hemorrhagic cut surfaces. Multiple foci of calcifications are present on cut surfaces along the 3:00 to 8:00 deep margin, grossly appearing to abut the margin in multiple locations. The indurated cut surface encompasses approximately 60% of total cut surfaces, and grossly appears to abut the deep margin at the approximate 11:00 to 1:00 aspect. The specimen is submitted representatively as follows: . A1-A2: [employer] calcified cut surfaces, following decalcification A3-A4: Cross section through approximate 12:00-6:00 aspect, divided between superficial and deep aspects and submitted in adjacent cassettes A5: [employer] Sales [employer] Manager epidermal surface discoloration (DAC; 04/21/2018) XDC/XDC . 02 Pathologist provided ICD-10: L98.499, I96 . 02 CPT . 390376, 880746 Specimen Comment: A courtesy copy of this report has been sent to Specimen Comment: [phone], . Specimen Comment: Report sent to / DR YEUNG Specimen Comment: A duplicate report has been generated due to demographic updates. Performed at: [address], [place] [id number] MD Sohan Saldivar MD Phone: [phone] Performed at: [address] [id number] MD Sonam Cruz MD Phone: [phone]
[~2018-04-20 05:31] MED LIST changes: +ASPIR 8181 MG PO; +FLECAINIDE ACET50 M1 PO
[2018-04-20 08:58] LABS: HEMATOCRIT 31.4 % (37.0-47.0); HEMOGLOBIN 10.1 gm/dL (12.0-15.0); MCH 28.3 pg (26.0-34.0); MCHC 32.1 g/dL (28.0-37.0); RBC 3.57 mil/uL (4.20-5.00); RDW 18.6 % (10.5-14.5); WBC 8.9 thou/uL (4.0-11.0)
[2018-04-20 09:03] LABS: CALCIUM 7.8 mg/dL (8.5-10.1); CREATININE 6.8 mg/dL (0.6-1.0); POTASSIUM 3.9 mmol/L (3.5-5.1)
[2018-04-20 09:09] LABS: ALBUMIN 2.8 g/dL (3.4-5.0); TOTAL BILIRUBIN 0.5 mg/dL (<0.1-1.0); TOTAL PROTEIN 7.6 g/dL (6.4-8.2)
[2018-04-20 10:58] VITALS: BP 79/46
[2018-04-20] MEDS ORDERED: NORCO 10-325 T1 EACH PO (11:42)
[2018-04-20 12:02] VITALS: BP 79/46
== END 2018-04-20 12:38 | disposition home or self-care (01) ==
LOC: OR 05:31 → TBA 05:31 → OR 11:28
PROVIDERS: Surgery
DX: D17.1 Benign lipomatous neoplasm of skin and subcutaneous tissue of trunk (principal); L98.499 Non-pressure chronic ulcer of skin of other sites with unspecified severity; I96 Gangrene, not elsewhere classified; N18.6 End stage renal disease; I50.9 Heart failure, unspecified; F32.9 Major depressive disorder, single episode, unspecified; F41.9 Anxiety disorder, unspecified; E66.01 Morbid (severe) obesity due to excess calories; Z91.041 Radiographic dye allergy status; Z86.2 Personal history of diseases of the blood and blood-forming organs and certain disorders involving the immune mechanism; Z90.49 Acquired absence of other specified parts of digestive tract; Z87.442 Personal history of urinary calculi; Z87.19 Personal history of other diseases of the digestive system; Z85.42 Personal history of malignant neoplasm of other parts of uterus; Z99.2 Dependence on renal dialysis; Z88.0 Allergy status to penicillin; Z98.84 Bariatric surgery status; Z98.890 Other specified postprocedural states; Z88.8 Allergy status to other drugs, medicaments and biological substances; Z90.710 Acquired absence of both cervix and uterus; Z79.82 Long term (current) use of aspirin; Z79.891 Long term (current) use of opiate analgesic; Z79.899 Other long term (current) drug therapy; Z68.39 Body mass index [BMI] 39.0-39.9, adult
CPT/HCPCS: 50010; 50101; 50386; 54118; 56526; 56527; 62110; 62850; 70005

== ENCOUNTER 2018-09-14 16:08 | Inpatient (IN) | payer OTHER, BC ==
[~2018-09-14] VITALS: Ht 152.4 cm; Wt 109.1 kg
--- NOTE | ~2018-09-14 | HC ---
[facility] [place] [address] CONSULTATION Name: EDGARDO PEDRAZA Room #: 240-P [facility] IN M.R.#: [id number] Admission: 09/14/18 ������������������ Attend Phys: Fernanda Gamboa Discharge: 09/15/18 ������������������ Date of : 53 Report #: [id number] THIS REPORT FOR: //name// CC: Sonido Miranda DATE OF SERVICE: 09/15/2018 REASON FOR CONSULTATION: End-stage renal disease. REASON FOR PRESENTATION: Not feeling well. HISTORY OF PRESENT ILLNESS: A 63-year-old who is maintained on hemodialysis every Thursday, Thursday and Thursday. She presented with weakness, shortness of breath and lightheadedness after missing her dialysis on Thursday. She was found to have significant hyperkalemia with wide QRS complex and was admitted accordingly. Unfortunately, the patient has noncompliance issues in the past. Emergent hemodialysis was done yesterday. Consult was placed for me to manage her end-stage renal disease. PAST MEDICAL HISTORY: 1. End-stage renal disease. 2. Atrophic kidneys. 3. Total abdominal hysterectomy and bilateral salpingo-oophorectomy due to endometrial cancer. 4. Remote history of kidney stones. 5. Anemia. 6. AV fistula. 7. Tunneled catheter. SOCIAL HISTORY: She lives by herself. No drug or alcohol abuse. ALLERGIES: CEPHALEXIN, NSAID, TORSEMIDE. MEDICATIONS: 1. Aspirin. 2. Lorazepam. 3. Midodrine. REVIEW OF SYSTEMS: GENERAL: Significant for weakness. CARDIOVASCULAR: Shortness of breath. PULMONARY: No cough or hemoptysis. Significant for shortness of breath. GASTROINTESTINAL: Occasional nausea. SKIN: No rash or ulcerations. MUSCULOSKELETAL: Occasional myalgias. [facility] [address] [place] [address] CONSULTATION Name: EDGARDO PEDRAZA Room #: 240-P [facility] IN M.R.#: [id number] Admission: 09/14/18 ������������������ Attend Phys: Fernanda Gamboa Discharge: 09/15/18 ������������������ Date of : 53 Report #: [id number] PHYSICAL EXAMINATION: GENERAL: She is alert, oriented. VITAL SIGNS: Blood pressure is marginal at 100/60. She is afebrile. Pulse rate is 68, regular. HEAD AND NECK: No jugular venous distention. CHEST: Decreased air entry bilaterally. CARDIOVASCULAR: No rub. ABDOMEN: Soft, nontender. EXTREMITIES: Lower extremities, no edema. LABORATORY DATA: Reviewed. Hemoglobin is 10. Sodium is 132, potassium is 3.8, it was all the way up to 7.1 yesterday. Chest x-ray suggestive of pulmonary edema. ASSESSMENT, IMPRESSION AND PLAN: 1. End-stage renal disease. 2. Life-threatening hyperkalemia. 3. Noncompliance. 4. Emergent dialysis was done for the patient yesterday. 5. Hemodialysis today. 6. Resume her midodrine. 7. She is stable to be discharged from my side after dialysis today. ��������������������������������������������� ���������������������������������������� By: ��������������������������������������������� 0919 2207 Nataliya Magaña MD /nt
[2018-09-14 16:12] VITALS: BP 110/43
[2018-09-14 16:33] LABS: ABSOLUTE NEUTROPHILS 9.3 thou/uL (1.4-8.2); BASOPHILS 0.6 % (0.0-2.0); EOSINOPHILS 0.6 % (0.0-3.0); HEMATOCRIT 35.1 % (37.0-47.0); HEMOGLOBIN 11.1 gm/dL (12.0-15.0); LYMPHOCYTES 4.8 % (24.0-44.0); MCH 29.1 pg (26.0-34.0); MCHC 31.6 g/dL (28.0-37.0); MCV 92.1 fL (80.0-100.0); MONOCYTES 6.6 % (1.0-8.0); PLATELET COUNT 136 thou/uL (150-400); POLYS 87.4 % (36.0-66.0); RBC 3.81 mil/uL (4.20-5.00); RDW 18.3 % (10.5-14.5); WBC 10.6 thou/uL (4.0-11.0)
[2018-09-14 16:49] LABS: ALBUMIN 2.6 g/dL (3.4-5.0); ANION GAP 16 mmol/L (7-16); BUN 84 mg/dL (7-18); CALCIUM 7.1 mg/dL (8.5-10.1); CHLORIDE 96 mmol/L (98-107); CO2 20 mmol/L (21-32); CREATININE 12.7 mg/dL (0.6-1.0); GLUCOSE 112 mg/dL (74-106); SGOT 13 U/L (15-37); SGPT 10 U/L (30-65); SODIUM 132 mmol/L (136-145); TOTAL BILIRUBIN 0.4 mg/dL (<0.1-1.0); TOTAL PROTEIN 7.6 g/dL (6.4-8.2); TROPONIN-I <0.06 ng/mL (<0.06)
[2018-09-14 16:54] LABS: POTASSIUM 7.1 mmol/L (3.5-5.1)
[2018-09-14 16:56] LABS: ANISOCYTOSIS 1+; HYPOCHROMASIA SLIGHT
--- NOTE | 2018-09-14 17:25 | EKG ---
[address] [place] [employer] [place] [address] ELECTROCARDIOGRAM REPORT Name: EDGARDO PEDRAZA Room #: 170-9 ADM IN M.R.#: [id number] ������������������ Admission: 09/14/18 ������������������ Attend Phys: Fernanda Gamboa Discharge: ������������������ Date of : 53 Report #: [id number] ����������������������������������������������������������������� [id number] THIS REPORT FOR: //name// [facility] ED Test Date: 2018-09-14 Test Time: 16:34:13 Pat Name: EDGARDO PEDRAZA Department: Room: 170 Gender: F Digital Experience Manager: brandi : 1955 Requested By: Carlos Johnson Order Number: [id number] MD: Jose Hester Measurements Intervals Bode Rate: 68 P: NH: QRS: 216 QRSD: 175 T: 34 QT: 485 QTc: 516 Interpretive Statements Sinus rhythm with first-degree AV block Nonspecific intraventricular conduction delay, consider hyperkalemia Compared to ECG 07/24/2017 15:09:45 changes of hyperkalemia are now present Electronically Signed On 09-14-2018 17:25:32 CDT by Jose Hester [email or web address] ��������������������������������������������� <ELECTRONICALLY SIGNED> ���������������������������������������� By: Jose Hester MD, FACC ��������������������������������������������� 09/14/18 1725 1634 1634 Jose Hester MD, [facility] /EPI
[2018-09-14 17:36] LABS: APTT 30.4 Seconds (24.5-32.8); PROTIME 10.4 Seconds (9.3-11.4)
[2018-09-14 19:26] LABS: CREATININE 12.2 mg/dL (0.6-1.0); MAGNESIUM 1.5 mg/dL (1.8-2.4); PHOSPHORUS 9.5 mg/dL (2.5-4.9)
[2018-09-14 19:29] LABS: POTASSIUM 5.7 mmol/L (3.5-5.1)
[2018-09-14] MEDS ORDERED: ONDANSETRON HCL4 M2 PO (20:20)
[2018-09-14] MEDS ORDERED: ZANTAC 150MG T150 MG PO (20:21)
[2018-09-14] MEDS ORDERED: CIPRO250 M1 PO (20:21)
[2018-09-14 23:41] VITALS: BP 99/42
[2018-09-14 23:50] VITALS: BP 99/42
[2018-09-15] VITALS (59 sets, daily range): BP systolic 79–123; BP diastolic 30–77
--- NOTE | 2018-09-15 02:37 | NUR ---
PT ARRIVED FROM ER WITH SOFIA SAUCEDO. PT ARRIVED IN FAIR CONDITION. ADMISSION HX AND ASSESSMENT DOCUMENTED. PT AOX4. C/O PAIN, PAIN MEDS GIVEN. VSS. AFEBRILE. LEFT HEEL WOUND NOTED. PT REFUSES TO TAKE OFF SHOES OR PERSONAL CLOTHES. NO COMPLAINS CURRENTLY. WILL CONTINUE TO MONITOR.
--- NOTE | 2018-09-15 05:32 | NUR ---
PT AOX4. ON 2L NC. NO SOA AT REST. MEDICATED FOR PAIN. VSS. BP SOFT AT TIMES. UP TO BSC WITH ONE ASSIST. NO COMPLAINS DURING THE NIGHT. WILL CONTINUE TO MONITOR PT.
[2018-09-15 06:05] LABS: HEMATOCRIT 30.6 % (37.0-47.0); HEMOGLOBIN 10.1 gm/dL (12.0-15.0); MCH 29.4 pg (26.0-34.0); MCV 89.2 fL (80.0-100.0); RBC 3.43 mil/uL (4.20-5.00); WBC 9.3 thou/uL (4.0-11.0)
[2018-09-15 06:13] LABS: ALBUMIN 2.1 g/dL (3.4-5.0); PHOSPHORUS 5.9 mg/dL (2.5-4.9)
[2018-09-15 06:16] LABS: CREATININE 6.3 mg/dL (0.6-1.0); POTASSIUM 3.8 mmol/L (3.5-5.1)
[2018-09-15 06:17] LABS: CALCIUM 7.2 mg/dL (8.5-10.1)
--- NOTE | 2018-09-15 11:19 | NUR ---
WOUND CONSULT: PT. WAS SEEN TODAY BY THIS LEASING MANAGER. PT. HAS A SMALL STABLE UNSTAGABLE PRESSURE ULCER TO HER LEFT HEEL. THERE ARE NO SIGNS AND SYMPTOMS OF INFECTION NOTED. WOUND IS COVERED WITH DRY STABLE ESCHAR AT THIS TIME. RECOMMENDATIONS: WOUND CARE TO LEFT HEEL: GENTLY CLEANSE WITH WOUND CLEANSER OR NORMAL SALINE, PAINT WITH BETADINE, LEAVE OPEN TO AIR, COMPLETE CARES DAILY. KEEP PT. IN HEEL PROTECTOR BOOTS FOR OFFLOADING AND WOUND HEALING. PT. AND STAFF NURSE WERE INSTRUCTED ON PLAN OF CARE.
--- NOTE | 2018-09-15 15:35 | NUR ---
PT IS LEAVING DISCHARGE INSTRUCTIONS GIVEN VERBALIZES UNDERSTANDING LEFT WITH FAMILY VIA WHEEL CHAIR AND ESCORT PER VOLUNTEER SERVICES. NO ISSUES OR CONCERNS NOTED AT THIS TIME.
--- NOTE | 2018-09-16 10:21 | DSS ---
[facility] [place] [address] SHORT STAY SUMMARY Name: EDGARDO PEDRAZA Room #: 240-P [facility] IN M.R.#: [id number] Admission: 09/14/18 ������������������ Attend Phys: Fernanda Gamboa Discharge: 09/15/18 ������������������ Date of : 53 Report #: [id number] THIS REPORT FOR: //name// CC: Sonido Miranda DATE OF SERVICE: 09/14/2018 CHIEF COMPLAINT: Chest pain. HISTORY OF PRESENT ILLNESS: The patient is a 63-year-old female who was admitted through the Emergency Room with shortness of breath and chest pain. At home, she was complaining of chest pressure, shortness of breath and lightheadedness with some diaphoresis. Symptoms began early yesterday morning. She thought maybe she was experiencing an episode of paroxysmal SVT, which she has a history of and waited through the day; however, symptoms persisted and she presented to the Emergency Room at 4:45 yesterday. She was diagnosed with hyperkalemia-induced ventricular tachycardia. She apparently skipped her hemodialysis session this previous Thursday, her normal day. PAST MEDICAL HISTORY: End-stage renal disease, on hemodialysis; history of gastric bypass, history of kidney stones, she has had renal stents and lithotripsy; history of esophagitis. She has had a history of abdominal bacterial infections, history of C. diff, history of endometrial cancer in 2011 with mets treated with hysterectomy, radiation and chemo. PAST SURGICAL HISTORY: As above. FAMILY HISTORY: Noncontributory. SOCIAL HISTORY: She lives at home. No chronic alcohol or tobacco use. ALLERGIES: KEFLEX, IV CONTRAST, NSAIDS, TORSEMIDE, TETANUS, PENICILLIN. MEDICATIONS: Midodrine, flecainide, Ativan, aspirin, Lomotil, hydrocodone. REVIEW OF SYSTEMS: Denies headache, shortness of breath, dysuria, myalgia, arthritis, syncope, fall. PHYSICAL EXAMINATION: VITAL SIGNS: Temperature 37.8, pulse 89, respirations 23, blood pressure 95/44, O2 sat 99% on room air. GENERAL: She is awake and alert, in no distress. HEAD AND NECK: Unremarkable. LUNGS: Clear. HEART: Regular. ABDOMEN: Soft, normoactive bowel sounds. [address] [address] SHORT STAY SUMMARY Name: EDGARDO PEDRAZA Room #: 240-P [facility] IN M.R.#: [id number] Admission: 09/14/18 ������������������ Attend Phys: Fernanda Gamboa Discharge: 09/15/18 ������������������ Date of : 53 Report #: [id number] EXTREMITIES: No edema. HOSPITAL COURSE: She was treated with emergent medication and dialysis in ER. She has also undergone her normal dialysis session today. Cardiac situation has been stable with no dysrhythmias noted overnight after conferring with nursing. Telemetry is reading sinus rhythm, currently. She has been assessed by the renal service. DISPOSITION: She will be discharged to home with renal low-sodium diet, resume all home medications, follow up with Dr. Lara tomorrow and her normal dialysis session on Thursday. Follow up with Dr. Miranda in 2 weeks. ��������������������������������������������� <ELECTRONICALLY SIGNED> ���������������������������������������� By: Rudolph Benavidez MD ��������������������������������������������� 09/16/18 1021 1250 1309 Rudolph Benavidez MD /nt
== END 2018-09-15 15:54 | disposition home or self-care (01) | DRG 640 ==
LOC: ER 16:08 → ICU 17:14 → EROBS 17:14 → ICU 23:51
PROVIDERS: Emergency Medicine; Physician Assistant; ADMIT Internal Medicine
PROC: 5A1D70Z Performance of Urinary Filtration, Intermittent, Less than 6 Hours Per Day (ICD-10-PCS; principal; 2018-09-15)
DX: E87.5 Hyperkalemia (principal); N18.6 End stage renal disease; Z68.42 Body mass index [BMI] 45.0-49.9, adult; I47.2 Ventricular tachycardia; F41.9 Anxiety disorder, unspecified; F32.9 Major depressive disorder, single episode, unspecified; I50.9 Heart failure, unspecified; E66.01 Morbid (severe) obesity due to excess calories; Z90.49 Acquired absence of other specified parts of digestive tract; Z98.84 Bariatric surgery status; Z90.710 Acquired absence of both cervix and uterus; Z90.79 Acquired absence of other genital organ(s); Z90.722 Acquired absence of ovaries, bilateral; Z92.3 Personal history of irradiation; Z92.21 Personal history of antineoplastic chemotherapy; Z87.442 Personal history of urinary calculi; Z99.2 Dependence on renal dialysis; Z91.15 Patient's noncompliance with renal dialysis; Z79.82 Long term (current) use of aspirin; Z79.899 Other long term (current) drug therapy; Z88.0 Allergy status to penicillin; Z88.7 Allergy status to serum and vaccine; Z88.8 Allergy status to other drugs, medicaments and biological substances; Z91.041 Radiographic dye allergy status
CPT/HCPCS: 32100

== ENCOUNTER 2018-10-25 11:26 | Inpatient (IN) | payer OTHER, BC ==
[~2018-10-25] VITALS: Ht 152.4 cm; Wt 108.4 kg
--- NOTE | ~2018-10-25 | HC ---
[facility] [place] [address] CONSULTATION Name: EDGARDO PEDRAZA Room #: 238-P ADM IN M.R.#: [id number] Admission: 10/25/18 ������������������ Attend Phys: Fernanda Gamboa Discharge: ������������������ Date of : 53 Report #: [id number] THIS REPORT FOR: //name// CC: Sonido Miranda DATE OF SERVICE: 10/25/2018 TYPE OF REPORT: Nephrology consultation. REASON FOR CONSULTATION: End-stage renal disease. HISTORY OF PRESENT ILLNESS: A 63-year-old patient is well known to our service, on dialysis for several years. She has 1-1.5 weeks history of diarrhea and poor appetite with weight loss. She has a 24-hour history of shaking chills. She came to the Emergency Room and also had a low blood pressure and was admitted. She missed dialysis today. PAST MEDICAL HISTORY: End-stage renal disease, on dialysis for several years as mentioned. She has a fistula but also insists on dialyzing with a tunneled catheter, which she has resisted and refused removal of. She has history of nephrolithiasis. She has a history of interstitial cystitis, history previously of hypertension, morbid obesity and chronic edema. 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 She has had previous gastric bypass and cholecystectomy. 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 No substantial cigarettes or alcohol. FAMILY HISTORY: Positive for cancer and heart disease. REVIEW OF SYSTEMS: GENERAL: She has been feeling rather poorly as mentioned. EYES: Vision is reasonably good. ENT: Hearing okay, swallows okay. No mouth sores. ENDOCRINE: No diabetes or thyroid disease. RESPIRATORY: She is not having shortness of breath or pleuritic pain. CARDIAC: No chest pain or angina. No recent swelling of the legs. GASTROINTESTINAL: She has had the nausea, poor appetite. She has had quite a bit of diarrhea, but no bloody stools. GENITOURINARY: She has on and off dysuria. NEUROLOGICAL: She has had some peripheral neuropathy with numbness. No seizure, syncope or stroke. PSYCHIATRIC: She has chronic anxiety. PHYSICAL EXAMINATION: VITAL SIGNS: This is an ill-appearing patient with shaking chills. SKIN: Otherwise, unremarkable. [facility] [address] [place] [address] CONSULTATION Name: EDGARDO PEDRAZA Room #: [address] [place] [address] IN M.R.#: [id number] Admission: 10/25/18 ������������������ Attend Phys: Fernanda Gamboa Discharge: ������������������ Date of : 53 Report #: [id number] SKELETAL: Morbidly obese. HEENT: Extraocular movements are full. Vision is intact. Mucous membranes are dry. NECK: Supple. No JVD, carotid bruits or lymphadenopathy. CHEST: Clear to auscultation. HEART: Regular. ABDOMEN: Soft and nontender. EXTREMITIES: She has been showing trace peripheral edema. NEUROLOGICAL: Grossly intact. LABORATORY DATA: Platelets are 120, hemoglobin is 10.1 and white count is 10.7. No manual differential. Sodium 134, potassium 4.3, chloride 94, bicarbonate 26, creatinine 10 and BUN 47. ASSESSMENT AND PLAN: Sepsis. She appears to be septic with shaking chills and hypotension. We will need to be careful with dialysis, possibly she will need continuous renal replacement therapy depending on her state tomorrow. She certainly does not need dialysis this evening. Remarkably, she does not have any acidosis despite missing dialysis. Her creatinine is a bit high but her potassium was not high either. We will recheck labs in the a.m. She likely will need removal of her dialysis catheter. She is having quite a bit of pain in her right shoulder and could well have seeded in the area there, possibly a joint space with a septic arthritis and the removal of her dialysis catheter will likely be necessitated and Infectious Disease consult will be helpful. ��������������������������������������������� ���������������������������������������� By: ��������������������������������������������� 1719 0435 Alin Denton MD /nt
[2018-10-25 11:26] VITALS: BP 80/45
[~2018-10-25 11:26] MED LIST changes: +ZANTAC 150MG T150 MG PO
[2018-10-25] MEDS ORDERED: COLESTID1 GM PO (12:22)
[2018-10-25 12:55] LABS: ABSOLUTE NEUTROPHILS 9.7 thou/uL (1.4-8.2); BASOPHILS 0.4 % (0.0-2.0); HEMATOCRIT 31.5 % (37.0-47.0); HEMOGLOBIN 10.1 gm/dL (12.0-15.0); LYMPHOCYTES 3.5 % (24.0-44.0); MCH 30.2 pg (26.0-34.0); MCV 94.3 fL (80.0-100.0); PLATELET COUNT 120 thou/uL (150-400); POLYS 91.1 % (36.0-66.0); RBC 3.34 mil/uL (4.20-5.00); RDW 17.7 % (10.5-14.5); WBC 10.7 thou/uL (4.0-11.0)
[2018-10-25 13:05] LABS: CALCIUM 8.3 mg/dL (8.5-10.1); POTASSIUM 4.3 mmol/L (3.5-5.1)
[2018-10-25] MEDS ORDERED: MIDODRINE HCL 55 M1 PO (15:09)
[2018-10-25] MEDS ORDERED: IMODIUM A-D2 MG PO (15:10)
[2018-10-25 19:08] VITALS: BP 91/53
--- NOTE | 2018-10-25 19:36 | NUR ---
ATTEMPTED TO CALL REPORT AND KLAUDIA, PARKING LOT ATTENDANT AND CASHIER IN ICU, REQUESTING TO CALL US RIGHT BACK BECAUSE SHE IS GIVING REPORT
[2018-10-25 20:47] VITALS: BP 91/47
[2018-10-25 22:00] VITALS: BP 90/49
[2018-10-26] VITALS (28 sets, daily range): BP systolic 71–116; BP diastolic 33–73
[2018-10-26 03:59] LABS: ABSOLUTE NEUTROPHILS 8.8 thou/uL (1.4-8.2); BASOPHILS 0.2 % (0.0-2.0); EOSINOPHILS 0.2 % (0.0-3.0); HEMATOCRIT 31.5 % (37.0-47.0); HEMOGLOBIN 9.9 gm/dL (12.0-15.0); LYMPHOCYTES 4.4 % (24.0-44.0); MCH 30.3 pg (26.0-34.0); MCHC 31.5 g/dL (28.0-37.0); MCV 96.2 fL (80.0-100.0); MONOCYTES 7.3 % (1.0-8.0); PLATELET COUNT 110 thou/uL (150-400); POLYS 87.9 % (36.0-66.0); RBC 3.27 mil/uL (4.20-5.00); RDW 17.9 % (10.5-14.5)
[2018-10-26 04:10] LABS: ALBUMIN 2.1 g/dL (3.4-5.0); CALCIUM 7.6 mg/dL (8.5-10.1); PHOSPHORUS 6.4 mg/dL (2.5-4.9); POTASSIUM 4.3 mmol/L (3.5-5.1)
--- NOTE | 2018-10-26 08:11 | NUR ---
SEE [employer] FOR ASSESSMENT. PT A/O. UP TO BS COMMODE WITH ASSIST. WEARS DEPENDS FOR ONGOING DIARRHEA-SOFT STOOLS. REFUSED ANTIOBIOTIC UNTIL SPEAK WITH DR YEUNG THIS AM. HAD PREVIOUS HX OF CDIFF. PT INSIST THAT THIS IN NOT IT SHE HAD IT BEFORE. AFEBRILE. COLD CLAMMY AT TIMES. IVF PER ORDERS INFUSING VIA 22G IV. MONITOR SR 90'S. BP IMPROVED WITH MIDRIDINE. RT CHEST DIALYSIS PORT INTACT. ORDERS FOR IR TO REMOVED TODAY. RT UA FISTULA + BRUIT/THRILL. AM LABS DONE. CONT PLAN OF CARE
--- NOTE | 2018-10-26 13:01 | NUR ---
INITIAL ASSESSMENT: SW reviewed chart and spoke with nursing. Pt was admitted from home due to fever/hypotension/diarrhea/ESRD. Pt with hx of c.diff and is in isolation. Pt on IV vanco. Pt with hx of ESRD and goes to outpatient dialysis at [facility] M-[facility]- at 1045. Pt currently receiving dialysis and will have her tunneled dialysis catheter removed following dialysis today due to possible infection. Pt to have CT of abdomen/pelvis. SW met with pt at bedside. Introduced role of SW. Pt is alert/orientated x 4. Pt reports she lives at home with her friend, Jael. Prior to admission, pt was independent with ADLs. Pt has a walker and scooter. Pt has nocturnal O2 through [facility]. Pt has used [facility] in the past for HH services. Pt states that she has transportation to/from dialysis. Pt's PCP is Dr. Devyn Miranda. Pt's goal is to return home when medically stable. SW is following to assist as needed with discharge planning.
[2018-10-26 15:49] LABS: URINE BILIRUBIN NEGATIVE (Negative); URINE BLOOD 2+ (Negative); URINE CLARITY CLOUDY; URINE COLOR YELLOW; URINE GLUCOSE-RANDOM* NEGATIVE (Negative); URINE KETONES NEGATIVE (Negative); URINE LEUKOCYTES-REFLEX 3+ (Negative); URINE NITRITE-REFLEX NEGATIVE (Negative); URINE PROTEIN (DIPSTICK) 2+ (Negative); URINE SPECIFIC GRAVITY <= 1.005 (1.005-1.035); URINE UROBILINOGEN 0.2 E.U./dl (0.2-1.0)
[2018-10-26 15:56] LABS: CASTS None Seen /LPF (None Seen); CRYSTALS None Seen /LPF (None Seen); SQUAMOUS >10 Many /LPF (0-3); URINE RBC 0-2 Rare /HPF (0-2); URINE WBC-REFLEX >25 Many /HPF (0-5)
--- NOTE | 2018-10-26 18:02 | NUR ---
ASSUMED CARE OF PT AT 0700 THIS SHIFT. PT HAS BEEN COOPERATIVE, HAS HAD SOME CHRONIC BACK PAIN THIS SHIFT. PT HAD MULTIPLE BOUTS OF DIARRHEA THIS SHIFT, C-DIFF SAMPLE WAS SENT, WELL UA. PT HAD DIALYSIS TODAY. PT ALSO HAD CT SCAN OF ABDOMEN/PELVIS. PT IS CURRENTLY RESTING COMFORTABLY IN ROOM, ASSESSMENTS ARE DOCUMENTED. PT HAS HAD VISITORS THIS SHIFT, EDUCATION WAS PROVIDED. PLAN OF CARE IS TO CONTINUE TO MONITOR PT CLOSELY AT THIS TIME.
[2018-10-27] VITALS (25 sets, daily range): BP systolic 70–96; BP diastolic 32–54
--- NOTE | 2018-10-27 04:48 | NUR ---
PT AOX4, FOLLOW COMMANDS. MEDICATED FOR PAIN RELIEF. BP ON THE SOFT SIDE, INFORMED DR. HODGES. FEBRILE DURING THE NIGHT, TYLENOL GIVEN. UP TO BSC WITH ONE ASSIST. SEVERAL STOOLS DURING THE NIGHT. PT REFUSED THE OPTION OF FECAL MANAGEMENT SYSTEM, ALTHOUGH EDUCATED ABOUT SKIN BREAKDOWN D/T CONSTANT CLEANING. NO COMPLAINS PRESENTLY. WILL CONTINUE TO MONITOR.
[2018-10-27 04:58] LABS: HEMATOCRIT 29.2 % (37.0-47.0); HEMOGLOBIN 9.3 gm/dL (12.0-15.0); MCH 30.1 pg (26.0-34.0); MCHC 31.8 g/dL (28.0-37.0); MCV 94.6 fL (80.0-100.0); PLATELET COUNT 84 thou/uL (150-400); RBC 3.09 mil/uL (4.20-5.00); RDW 17.5 % (10.5-14.5); WBC 7.3 thou/uL (4.0-11.0)
[2018-10-27 05:15] LABS: ALBUMIN 1.8 g/dL (3.4-5.0); CALCIUM 7.3 mg/dL (8.5-10.1); PHOSPHORUS 4.3 mg/dL (2.5-4.9); POTASSIUM 3.8 mmol/L (3.5-5.1); TOTAL BILIRUBIN 0.3 mg/dL (<0.1-1.0); TOTAL PROTEIN 5.3 g/dL (6.4-8.2)
[2018-10-27 05:50] LABS: CREATININE 5.8 mg/dL (0.6-1.0)
[2018-10-27 07:01] LABS: ABSOLUTE NEUTROPHILS 5.8 thou/uL (1.4-8.2)
[2018-10-27 07:02] LABS: ANISOCYTOSIS 1+
--- NOTE | 2018-10-27 10:15 | H ---
[facility] [place] [address] HISTORY AND PHYSICAL Name: EDGARDO PEDRAZA Room #: 238-P ADM IN M.R.#: [id number] Admission: 10/25/18 ������������������ Attend Phys: Fernanda Gamboa Discharge: ������������������ Date of : 53 Report #: [id number] THIS REPORT FOR: //name// CC: Sonido Miranad DATE OF SERVICE: 10/25/2018 CHIEF COMPLAINT: Weakness and diarrhea. HISTORY OF PRESENT ILLNESS: The patient is a 63-year-old female who was admitted to the Emergency Room with reports of fever and chills and diarrhea. Symptoms began the night prior to presentation when she reported a temperature of 102. She was having some aching chills and diarrhea for about the last week. She noted some pain in the right arm and shoulder for about 2 days. She has a fistula in her right upper arm for dialysis access. PAST MEDICAL HISTORY: End-stage renal disease, on hemodialysis. History of C. diff colitis, history of endometrial and cervical cancer with hysterectomy in 2011 and pelvic radiation, history of renal stones, history of esophageal erosions and gastritis, pulmonary hypertension, history of chronic hypotension. She has had abdominal infections related to her surgery in 2011. History of PSVT, history of depression, anxiety, anemia of chronic disease. PAST SURGICAL HISTORY: Gastric bypass remotely, cholecystectomy, tonsillectomy, hysterectomy, right AV fistula. FAMILY HISTORY: Noncontributory. SOCIAL HISTORY: She lives alone. No chronic alcohol or tobacco use. She was attending outpatient hemodialysis. ALLERGIES: KEFLEX, IV CONTRAST, NONSTEROIDAL ANTI-INFLAMMATORIES, TORSEMIDE, TETANUS, PENICILLIN. MEDICATIONS: Aspirin, Ativan, flecainide, midodrine, Zofran, Zantac, Colestid. REVIEW OF SYSTEMS: Denies headache, chest pain, shortness of breath, abdominal pain, nausea, vomiting, dysuria, syncope or fall. OBJECTIVE: VITAL SIGNS: Temperature 36.7, pulse 92, respiratory rate 22, blood pressure 80/51, O2 sat 98% on room air. GENERAL: She is awake and alert, in no distress. HEAD AND NECK: Unremarkable. LUNGS: Clear. HEART: Regular. [facility] [address] [place] [address] HISTORY AND PHYSICAL Name: EDGARDO PEDRAZA Room #: 238-P [facility].#: [id number] Admission: 10/25/18 ������������������ Attend Phys: Fernanda Gamboa Discharge: ������������������ Date of : 53 Report #: [id number] ABDOMEN: Soft, normoactive bowel sounds. No rebound or guarding. EXTREMITIES: No edema. NEUROLOGIC: Global strength 3/5 throughout. LABORATORY DATA: White count is 10, hemoglobin 9. She has a left shift with 89% segmented neutrophils. Potassium on admission was 4.3, albumin is 2.1. ASSESSMENT: 1. Generalized sepsis. 2. Febrile illness due to the above. 3. End-stage renal disease. 4. Chronic hypotension. 5. Anemia of chronic disease. 6. Diarrhea with a history of Clostridium difficile colitis. 7. Severe protein-calorie malnutrition, albumin 2.1. PLAN: She has been admitted to ICU and ID and Renal Services have assessed and organized treatment for her. Sepsis workup is ongoing. CT of the abdomen is pending, until that is obtained with results and antibiotics on board if we likely need to hold off on Imodium for the diarrhea for now until we are clear this is not overt C. diff colitis. ��������������������������������������������� <ELECTRONICALLY SIGNED> ���������������������������������������� By: Rudolph Benavidez MD ��������������������������������������������� 10/27/18 1015 1126 1143 Rudolph Benavidez MD /nt
--- NOTE | 2018-10-27 10:34 | HC ---
[facility] [place] [address] CONSULTATION Name: EDGARDO PEDRAZA Room #: 238-P ADM IN M.R.#: [id number] Admission: 10/25/18 ������������������ Attend Phys: Fernanda Gamboa Discharge: ������������������ Date of : 53 Report #: [id number] THIS REPORT FOR: //name// CC: Sonido Miranda DATE OF SERVICE: 10/26/2018 REASON FOR CONSULTATION: Evaluate sepsis with fever, abdominal pain and diarrhea in the setting of end-stage renal disease: HISTORY OF PRESENT ILLNESS: The patient is a 63-year-old with end-stage renal disease, on dialysis via a right upper extremity AV fistula. She also has a tunneled dialysis catheter in the right chest, which she has had for a year and a half. She has refused to have it removed due to her disdain for bruising at the fistula site during dialysis access procedure. In addition, she has radiation-induced cystitis as well as injury to her lower bowel. She has a history of endometrial cancer. She has had issues with recurring C. difficile colitis. Last episode was over a year ago. Last week had the onset of diarrhea that did not respond to Imodium and Lomotil. She did start Colestid and had some improvement. She continued to have lower abdominal discomfort mostly of aching and occasional cramping discomfort. Stools were nonbloody. She has had no nausea or vomiting. She had temperature up to 102 degrees, 4 days ago, which relapsed again yesterday. She was admitted through the Emergency Room for further evaluation. She was hypotensive on presentation with blood pressures in the 70s systolic. She has been tachycardic up to 115. She has remained lucid. She denies any headache, cough, sputum or chest pain. She has had right shoulder pain that was worsening yesterday. She has had no drainage from her right chest tunneled catheter. Her AV fistula has been functioning well. She does urinate some on a daily basis, but it has been nonbloody. No vaginal discharge. No rashes or decubitus. REVIEW OF SYSTEMS: A 10-point review of systems was negative other than what is described above. ALLERGIES: IV CONTRAST, NONSTEROIDAL ANTI-INFLAMMATORIES, TETANUS TOXOID, TORSEMIDE COMPLAINS OF DIARRHEA AND C. DIFFICILE INFECTION WITH CEPHALOSPORINS AND PENICILLINS. MEDICATIONS: As noted on AUG. She was given vancomycin and Levaquin last evening. She refused to take metronidazole last evening. PAST MEDICAL HISTORY: End-stage renal disease, right upper extremity AV fistula, right chest tunneled catheter, nephrolithiasis, interstitial cystitis, hypertension, morbid obesity, chronic lymphedema, endometrial cancer, status post hysterectomy, radiation-induced cystitis, cholecystectomy, gastric bypass and atrophic left kidney. [facility] [address] [place] [address] CONSULTATION Name: EDGARDO PEDRAZA Room #: 238-P ADM IN M.R.#: [id number] Admission: 10/25/18 ������������������ Attend Phys: Fernanda Gamboa Discharge: ������������������ Date of : 53 Report #: [id number] FAMILY HISTORY: Noncontributory. SOCIAL HISTORY: Nonsmoker, no significant alcohol intake. PHYSICAL EXAMINATION: VITAL SIGNS: She is with temperature of 99 degrees and currently 98.1, blood pressure 76/54 initially and now 91/53 and heart rate 100. She has had liquid stool. She is on 2 liters of oxygen per nasal cannula. GENERAL: She is alert and cooperative and pleasant and able to sit up in bed. SKIN: Without rash or decubitus. No palpable adenopathy. HEENT: Eyes, without scleral icterus. Mouth without mucositis. NECK: Supple, with no thyromegaly or mass. LUNGS: Clear to auscultation. HEART: Regular without murmur, gallop or rub. ABDOMEN: She was obese. Abdomen was soft with positive bowel sounds. Tenderness in the suprapubic and left lower quadrant without appreciable mass. No hepatosplenomegaly. GENITAL AND RECTAL: Not performed. EXTREMITIES: Without clubbing, cyanosis or edema. Cranial nerves are intact. Strength in upper and lower extremities was normal. Sensation is intact upper and lower extremities to touch. Mood normal. CHEST: Right chest tunneled dialysis catheter was unremarkable with no tenderness along the tunnel or drainage from her exit site. Mild tenderness in the right shoulder with reasonable range of motion. LABORATORY STUDIES: Sodium 133, potassium 4.3, bicarbonate 24, creatinine 10, lactate 1.5. Hemoglobin 9.9, platelet count 110,000, WBC 10 with 87% segs, 4% lymphs and 7% monocytes. Chest x-ray was clear. IMPRESSION: A 63-year-old with end-stage renal disease, radiation-induced cystitis and recurrent diarrhea now presents with fever, sepsis, diarrhea and lower abdominal pain in addition to the right shoulder pain and a right chest tunneled dialysis catheter. The pain in her shoulder has improved. I am concerned about intra-abdominal infection, possibly C. difficile colitis. Urinary tract infection would also be considered. RECOMMENDATION: 1. We will obtain CT scan of the abdomen and pelvis. Remove her tunneled dialysis catheter for this may well be a source of her fever as well as it is at risk for infection in some of that already has a functional fistula. 2. Continue broad antibiotic coverage and include metronidazole in this. 3. Continue dialysis program. [facility] [address] [address] CONSULTATION Name: EDGARDO PEDRAZA Room #: 238-P ADM IN M.R.#: [id number] Admission: 10/25/18 ������������������ Attend Phys: Fernanda Gamboa Discharge: ������������������ Date of : 53 Report #: [id number] 4. Make adjustments pending further culture results. This will include blood cultures, urinalysis and urine culture as well as C. difficile PCR. ��������������������������������������������� <ELECTRONICALLY SIGNED> ���������������������������������������� By: Daniel Miranda MD ��������������������������������������������� 10/27/18 1034 [id number] [id number] Daniel Miranda MD /nt
--- NOTE | 2018-10-27 14:03 | NUR ---
ASSUMED CARE OF PT AT APPROX 0700. PT IS ALERT AND ORIENTED X4, MONITORED ON TELE AND ABLE TO MAINTAIN 02 SAT> 90 ON RA. ASSESSMENT CHARTED. VSS. PT ANXIOUS TO LEAVE. EDUCATED AND UPDATED ON POC AND COMMUNICATES UNERSTANDING. POC CARRIED OUT. P MAKING GOOD PROGRESS TOWARDS POC GOALS. ISOLATION REMOVED, CDIFF NEGATIVE. PT STILL HAVING LOOSE STOOLS BUT CLAIMS IT HAS SLOWED DOWN. WILL CONINUE TO MONIOR.
[2018-10-28] VITALS (40 sets, daily range): BP systolic 66–99; BP diastolic 17–58
--- NOTE | 2018-10-28 06:11 | NUR ---
AOX4. AFEBRILE. BP SOFT. VSS. DENIED PAIN. UP WITH 1 ASSIST TO BSC. 3 STOOLS DURING THE NIGHT. SLOWLY PROGRESSING TOWARDS GOALS. WILL CONTINUE TO MONITOR.
[2018-10-28 07:49] LABS: ALBUMIN 1.8 g/dL (3.4-5.0); CALCIUM 7.1 mg/dL (8.5-10.1); PHOSPHORUS 4.5 mg/dL (2.5-4.9); POTASSIUM 3.5 mmol/L (3.5-5.1)
[2018-10-28 07:50] LABS: CREATININE 6.8 mg/dL (0.6-1.0)
--- NOTE | 2018-10-28 08:57 | NUR ---
Assess for high BMI 47.6=extreme class III obesity. Pt admitted with diarrhea, and hypotension. Hx ESRD/dialysis. Cdiff neg. On low K+ diet, tolerating. Wts variable 220-240 lb past year. Low nutrition risk.
--- NOTE | 2018-10-28 15:31 | NUR ---
PATIENT STATES THAT SHE WILL BE ABLE TO DO HER OWN SELFCARE ONCE SHE IS MOVED TO A ROOM W/A BATHROOM. SHE DECLINES OT SERVICES AND WILL BE DISCHARGED FROM ACUTE OT THIS DATE.
--- NOTE | 2018-10-28 17:43 | NUR ---
ASSUMED CARE @ 0700 10/28/18, PT ASSESSMENTS AND VSS COMPLETE PER ICU PROTOCOL, PT ALERT AND ORIENTED X 4, PT ABLE TO FOLLOW ALL COMMANDS, PT GIVEN HYDROCODONE FOR PAIN DURING THE SHIFT. PT SR; 1 AVB ON THE MONITOR, BP SOFT SCHEDULED MIDODRINE IN PLACE, PT AFEBRILE. PT ON 2L OF NC, SATS IN THE HIGH 90'S, NO SOA NOTED. PT ON A REGULAR LOW K DIET, PT HAD LOOSE STOOLS X 2. PT HAD NO URINE DURING MY SHIFT. PT ABLE TO TRANSFER TO BED SIDE COMMODE WITH THE ASSIST OF THE RN. REPORT GIVEN TO NATHAN SAUCEDO @ 1650 FOR ROOM 364. PT TRANSFERED TO 3W WITH OUT ANY COMPLICATIONS. FRIEND AT BEDSIDE.
--- NOTE | 2018-10-28 20:04 | NUR ---
PATIENT ADMITTED TO UNIT. ALL QUESTIONS ANSWERED. ORIENTED TO ROOM. SHE IS ALERT ORIENTED X4. CONCERNED OF DIARRHEA THAT IS ONGOING. WILL CONT WITH PLAN OF CARE.
--- NOTE | 2018-10-28 23:48 | HC ---
[facility] [place] [address] CONSULTATION Name: EDGARDO PEDRAZA Room #: 364-P ADM IN M.R.#: [id number] Admission: 10/25/18 ������������������ Attend Phys: Fernanda Gamboa Discharge: ������������������ Date of : 53 Report #: [id number] THIS REPORT FOR: //name// CC: Sonido Eisenberg MD GASTROENTEROLOGY CONSULTATION She is a patient of Dr. Rudolph Benavidez. CHIEF COMPLAINT: This is a very pleasant 63-year-old white female that was admitted to the ICU with severe sepsis. We are asked to see her because in the process of workup of her diagnosis, she was found to have a segmental colitis of the cecum and proximal ascending colon of uncertain etiology. She has a history of ischemic small bowel that had to be resected surgically. This was thought to be secondary to adhesions from prior surgeries, of which she has had several. The patient reports that she has been having diarrhea for the last week and a half consisting of stools, night and day that awaken her from sleep. She has about 8 stools per 24-hour period. She has had some bright red blood per rectum, and this is not a new issue. This is a chronic issue. She thinks that is from hemorrhoids. PAST MEDICAL HISTORY: Significant for chronic renal failure thought to be partially secondary to radiation that was given to her for her endometrial carcinoma as one of her kidneys was severely affected by this process. The other kidney then failed later. Other past medical history includes obesity. She has had a jejunoileal bypass in the 1970s for obesity. She has history of Clostridium difficile diarrhea. Her last episode was a year ago. She has a history of diastolic congestive heart failure, chronic anxiety, chronic back pain, urolithiasis and she is status post lithotripsy. She has an umbilical hernia. She has a 1 cm asymptomatic adrenal adenoma on the left. She also has gastroesophageal reflux. She has a history of pulmonary hypertension. PAST SURGICAL HISTORY: Significant for cholecystectomy, total abdominal hysterectomy with bilateral salpingo-oophorectomy, tonsillectomy and adenoidectomy, drainage of the left psoas muscle abscess, lysis of adhesions on multiple occasions, partial small bowel resection for ischemia secondary to adhesions. I think she has had a dialysis catheter placed as well. She has had radiation and chemotherapy for endometrial carcinoma in [id number]. ALLERGIES: IODINATED CONTRAST DYE, PENICILLIN, TETANUS TOXOID, NONSTEROIDAL ANTI-INFLAMMATORY MEDICATIONS AND TORSEMIDE. MEDICATIONS: Her medications prior to admission included the following medications, [address] [address] CONSULTATION Name: EDGARDO PEDRAZA Room #: 364-P ADM IN M.R.#: [id number] Admission: 10/25/18 ������������������ Attend Phys: Fernanda Gamboa Discharge: ������������������ Date of : 53 Report #: [id number] 1. Aspirin 81 mg daily. 2. Colestid half a gram daily. 3. Lomotil one tablet q.6 hours p.r.n. for diarrhea. 4. Tambocor 50 mg p.o. b.i.d. 5. Hydrocodone 10 mg/325 mg 1 tab p.o. q.4 hours p.r.n. for pain. 6. Imodium AD 2 mg tabs, she take 2 mg p.o. q.6 hours p.r.n. for diarrhea. 7. Lorazepam 0.5 mg t.i.d. p.r.n. for anxiety. 8. Midodrine 5 mg tabs 2 p.o. as directed prior to dialysis. 9. Zofran 4 mg q.8 hours p.r.n. for nausea. 10. Ranitidine 150 mg 1 p.o. daily. SOCIAL HISTORY: She has never smoked. She does drink alcohol occasionally, but rarely. FAMILY HISTORY: Significant for her father dying of colon cancer at age 52. There is no history of Crohn's disease. She does have a cousin who has ulcerative colitis. REVIEW OF SYSTEMS: She denies any dysphagia or odynophagia. She does have gastroesophageal reflux and she takes Zantac p.r.n. for that with good results. She says right now her weight is stable, her appetite significantly decreased since this diarrhea began. She has nausea without vomiting. She has had bright red blood in her stools intermittently for a long time and she thinks she has external hemorrhoids that are the source of this bleeding. She denies any melena or hematemesis. The patient has had a colonoscopy in the past and reportedly it is normal. This was greater than 10 years ago; however, she also complains of right lower quadrant tenderness to palpation. She has no history of a hiatal hernia or peptic ulcer disease. She has no history of jaundice, hepatitis, or pancreatitis. She has had a cholecystectomy. She is having diarrhea 7-8 stools in a 24-hour period and they do awaken her from sleep. PHYSICAL EXAMINATION: GENERAL: Reveals a well-developed, well-nourished 63-year-old white female in no obvious distress at the time of the examination. She is awake, alert, oriented x 4 and cooperative and very pleasant to converse with. HEENT: She is normocephalic, atraumatic and anicteric. HEART: Rate and rhythm are regular with a normal S1 and S2. LUNGS: Clear bilaterally. ABDOMEN: Soft. Bowel sounds are present in all 4 quadrants. There is no palpable organomegaly or mass, although it is difficult to feel because the patient has an obese abdomen. There is tenderness to palpation in the right lower quadrant over the right proximal colon and cecum area. There may be some rebound in this area as well. EXTREMITIES: Warm and dry. NEUROLOGIC: She appears grossly intact without lateralizing signs, though I did not test her extensively neurologically. [address] [address] CONSULTATION Name: EDGARDO PEDRAZA Room #: 364-P ADM IN M.R.#: [id number] Admission: 10/25/18 ������������������ Attend Phys: Fernanda Gamboa Discharge: ������������������ Date of : 53 Report #: [id number] SIGNIFICANT LABORATORY DATA: Today show a normal BMP except for a BUN of 32 and creatinine of 6.8. Liver enzymes are normal or low. Albumin is 1.8. She has a history of iron deficiency anemia in 2017. She is anemic with a hemoglobin of 9.3, normal indices and a slightly elevated RDW of 17.5. She is thrombocytopenic at 84,000 platelets. It is possible that she may have nonalcoholic steatohepatitis. C. diff is negative. Stool for culture and sensitivity for pathogens is pending. We will obtain a stool for fecal leukocytes as inflammatory bowel disease is in the differential diagnosis. CT of the abdomen shows mild infiltrate in the right lung base. Adrenal adenoma in the left adrenal gland approximately 1 cm in size that is stable, atrophic left kidney with an unchanged isodense mass in the mid pole, nonobstructing bilateral renal calculi. There is circumferential mucosal thickening of the cecum and ascending colon consistent with colitis. Infection, inflammatory or ischemic colitis are all possible considerations. There is a nonobstructing small bowel wall containing umbilical hernia. IMPRESSION: 1. Segmental colitis of the cecum and proximal ascending colon causing right lower quadrant tenderness, diarrhea, 8 stools per day. She has daytime and nighttime diarrhea. 2. Small volume hematochezia off and on. This has been going on for quite some time and the patient thinks this is from external hemorrhoids. Her last colonoscopy was over 10 years ago; however, and it was reportedly normal. She also has chronic diarrhea on top of this acute diarrhea. 3. The patient has had a jejunoileal bypass in the 1970s for obesity. She also had resection of a portion of her small intestine for ischemia related to adhesions [place] [address] Mingo Grajeda. 4. History of Clostridium difficile, last episode was 1 year ago and Clostridium difficile remains negative at this time. 5. Diastolic congestive heart failure. 6. Obesity. 7. Chronic anxiety. 8. Chronic back pain. 9. Urolithiasis, status post lithotripsy. 10. Chronic renal failure, on hemodialysis. She has a history of radiation cystitis. 11. History of endometrial cancer resected in 2011 followed with radiation and chemotherapy. She had damage to her kidney and bowels from the radiation, she tells me. 12. She is status post cholecystectomy, total abdominal hysterectomy with bilateral salpingo-oophorectomy, left psoas muscle abscess drainage, lysis of adhesions, partial small bowel resection for ischemia secondary to adhesions. 13. Umbilical hernia containing a piece of small bowel, nonobstructive. 14. Hepatosplenomegaly possibly cirrhosis, possibly SOLANO (nonalcoholic steatohepatitis). [facility] [address] [place] [address] CONSULTATION Name: EDGARDO PEDRAZA Room #: 364-P ADM IN M.R.#: [id number] Admission: 10/25/18 ������������������ Attend Phys: Fernanda Gamboa Discharge: ������������������ Date of : 53 Report #: [id number] 15. Stable 1 cm adrenal adenoma. 16. Gastroesophageal reflux. 17. Nausea. 18. Normocytic normochromic anemia. 19. Chronic thrombocytopenia, possibly related to a potential cirrhosis from nonalcoholic steatohepatitis. RECOMMENDATIONS: My recommendations are as follows: I agree with the current antibiotics. I am concerned she has either mesenteric ischemia or adhesions that may be interfering with blood flow to the cecum and proximal ascending colon. I am recommending that she have a full colonoscopy tomorrow, but when I discussed this with the patient, she is not feeling well enough for this yet. We will follow her closely and get this done as soon as she can tolerate the prep. 1. I agree with the antibiotics that are being currently used. 2. I am concerned that she has mesenteric ischemia or adhesions that may be interfering with blood to the cecum at the proximal ascending colon. I am recommending she have a full colonoscopy tomorrow, but when I discussed this with the patient, she is still not feeling well enough for this and she does not think she could tolerate a prep at this time. We will follow her closely and get this colonoscopy done as soon as she thinks she could tolerate it. 3. We would be sure to maintain her blood pressure, so we can maintain good mesenteric perfusion and prevent further mesenteric ischemia. Thank you very much once again for allowing me to participate in her care. ��������������������������������������������� <ELECTRONICALLY SIGNED> ���������������������������������������� By: Rubina Herrera DO ��������������������������������������������� 10/28/18 [id number] Rubina Herrera DO /nt
[2018-10-29 04:25] VITALS: BP 87/43
--- NOTE | 2018-10-29 04:59 | NUR ---
SLEPT MOST SHIFT. WORKING ON GOALS AND PLAN OF CARE FOR NOC. PROGRESSING SLOWLY TOWARDS DISCHARGE GOALS. UP TO COMODE WITH STANDBY ASSIST. DENIES PRESENT COMPLAINTS OF PAIN OR SHORTNESS OF AIR. CONTINUE TO ASSES CLOESLY. MAINTAIN SAFE ENVIRONMENT.
[2018-10-29 06:19] LABS: CALCIUM 7.4 mg/dL (8.5-10.1); PHOSPHORUS 3.8 mg/dL (2.5-4.9); POTASSIUM 3.7 mmol/L (3.5-5.1)
[2018-10-29 08:12] VITALS: BP 87/47
[2018-10-29 11:50] VITALS: BP 91/72
--- NOTE | 2018-10-29 12:22 | NUR ---
SW reviewed chart due to length of stay. Pt was transferred to from ICU yesterday. GI is recommending pt have a colonoscopy. Pt refusing at this time, and would like to do a colonoscopy as an outpatient. Plan is for pt to discharge home when medically stable and resume outpatient dialysis. [facility] is open on Thursday, 11/01 (). Pt would resume her M-W-F at 1045 schedule. SW discussed with attending physician, who states pt may be ready to discharge over the weekend. Final discharge orders/summary and flow sheets will need to be faxed to [facility] when available. SW is available to assist should needs arise. [facility]--
--- NOTE | 2018-10-29 14:27 | NUR ---
ASSUMED CARE OF PT AT 0700. PT HAS BEEN A&Ox4. PT DENIES PAIN AND SOB. PT HAS BEEN UP TO COMMODE AND TO BATHROOM WITH STANDBY ASSIST. HAVING LOOSE STOOLS. PT'S BP REMAINS SOFT BUT AT HER NORMAL BASELINE. PT IS ON 2LNC NEEDED. PT IS RECEIVING 1/2 OF NORMAL DIALYSIS TIME TODAY IN ORDER TO GET HER BACK ON HER NORMAL SCHEDULE. ALSO SCHEDULED FOR AN ABDOMINAL CT TO SEE IF THERE IS IMPORVEMENT IN BOWEL INFLAMMATION. PT IS PROGRESSING TOWARD POC GOALS. WILL CONTINUE TO MONITOR AND ASSESS.
[2018-10-29 16:10] VITALS: BP 82/44
[2018-10-29 19:14] VITALS: BP 75/45
[2018-10-29 21:24] VITALS: BP 84/38
[2018-10-30 04:30] VITALS: BP 94/48
--- NOTE | 2018-10-30 06:24 | NUR ---
PT MAKING PROGRESS TOWARDS GOALS. DENIES ANY SOA AT REST. ON ROOM AIR UPON INITIAL ASSESSMENT. ON O2 AT 2L OVERNIGHT. UP WITH SBA. REQUIRING MILD AMOUNT OF ASSISTANCE TO RISE FROM A CHAIR TO STANDING.
[2018-10-30 08:15] VITALS: BP 84/38
[2018-10-30 16:00] VITALS: BP 80/35
[2018-10-30 19:17] VITALS: BP 82/37
--- NOTE | 2018-10-30 19:49 | NUR ---
PATIENT CONT TO HAVE DIARRHEAL STOOLS TODAY. SHE HAS NOT VOICED COMPLAIN OF PAIN AT THIS TIME. RESPIRATIONS ARE EVEN UNLABORED. PLEASANT AND COOPERATIVE WITH CARE.
[2018-10-31 03:50] VITALS: BP 86/46
--- NOTE | 2018-10-31 05:19 | NUR ---
SLEPT MOST OF SHIFT. UP TO COMODE WITH MINIMAL ASSIST. MAINTAIN SAFE ENVIRONMENT. WORKING ON GOALS AND PLAN OF CARE FOR NOC. COMPLAINTS OF NAUSEA AND PAIN PRN. PROGRESSING SLOWLY TOWARDS DISCHARGE GOALS. CONTINUE TO ASSES.
[2018-10-31 07:12] VITALS: BP 92/50
[2018-10-31] MEDS ORDERED: ONDANSETRON HCL4 M2 PO (08:49)
[2018-10-31] MEDS ORDERED: LEVAQUIN 500 M500 M2 PO (08:55)
[2018-10-31] MEDS ORDERED: FLAGYL500 M1 PO (08:55)
--- NOTE | 2018-10-31 10:19 | NUR ---
ASSUMED CARE OF PT AT 0700. PT IS A&OX4. REPORTS HAVING HAD INCREASED NAUSEA OVERNIGHT BUT HAS SUBSIDED AT THIS POINT. PT WAS ABLE TO EAT BREAKFAST. PT REPORTS 3 LOOSE STOOLS THIS MORNING. PT DENIES ALL PAIN. DR BRUCE HAS SUBMITTED DC [facility] AND WILL SEND PT HOME WITH SCRIPTS FOR JESU ET. AL. PT IS PROGRESSING WELL TOWARD POC GOALS. WILL CONTINUE TO MONITOR AND ASSESS.
[2018-10-31 10:26] VITALS: BP 92/50
--- NOTE | 2018-10-31 10:51 | NUR ---
PT DC HOME WITH FRIEND VIA PERSONAL VEHICLE. ESCORTED OUT VIA WHEELCHAIR BY UNIT TECH. IV AND TELE DC'D. PT'S BELONGINGS GATHERED AND SENT WITH PT. LEFT UNIT AT 1045.
--- NOTE | 2018-11-01 10:13 | D ---
[facility] [address] DISCHARGE SUMMARY Name: EDGARDO PEDRAZA Room #: 364-P [facility] IN M.R.#: [id number] Admission: 10/25/18 ������������������ Attend Phys: Fernanda Gamboa Discharge: 10/31/18 ������������������ Date of : 53 Report #: [id number] THIS REPORT FOR: //name// CC: Sonido Miranda DATE OF SERVICE: 10/31/2018 FINAL DIAGNOSES: 1. Colitis of the ascending colon. 2. End-stage renal disease. 3. Chronic hypotension. HOSPITAL COURSE: The patient was admitted with initial diagnosis of sepsis related to possible gastrointestinal source. There is also a consideration of infected dialysis catheter. That device was removed; however, the cultures of blood and the catheter tip were negative. Sepsis was ruled out as there was a concern of ischemic colitis. Stool cultures and C. diff all were negative. She was treated supportively and followed by Renal and ID. She had no other interval complication. A followup CT showed continued areas of colitis with no progression. GI service recommended outpatient colonoscopy in the coming weeks. On the day of discharge, she was awake and alert with resolution of her abdominal pain. She was still having soft, formed type stools that were frequent. PHYSICAL EXAMINATION: VITAL SIGNS: On the day of discharge, her temperature is 36.4, pulse 79, respirations 16, blood pressure 90/50, O2 sat 97% on room air. LUNGS: Clear. HEART: Regular. ABDOMEN: Soft, normoactive bowel sounds. EXTREMITIES: Showed no edema. DISPOSITION: She is discharged to home with renal diet, activity as tolerated, outpatient dialysis. Follow up with Dr. Miranda in a week, Dr. Mickey smith two weeks. She will need an outpatient colonoscopy. She will resume all usual medications plus Levaquin and Flagyl. ��������������������������������������������� <ELECTRONICALLY SIGNED> ���������������������������������������� By: Rudolph Benavidez MD ��������������������������������������������� 11/01/18 [id number] Rudolph Benavidez MD /nt
== END 2018-10-31 12:09 | disposition home or self-care (01) | DRG 314 ==
LOC: ER 11:26 → EROBS 14:22 → ICU 14:22 → 3W 10-28 17:40
PROVIDERS: Emergency Medicine; Internal Medicine Geriatric Medicine; Internal Medicine Nephrology; Specialist; ADMIT Internal Medicine
PROC: 0JPT3XZ Removal of Tunneled Vascular Access Device from Trunk Subcutaneous Tissue and Fascia, Percutaneous Approach (ICD-10-PCS; principal; 2018-10-26)
PROC: 02PYX3Z Removal of Infusion Device from Great Vessel, External Approach (ICD-10-PCS; 2018-10-26)
PROC: B5181ZZ Fluoroscopy of Superior Vena Cava using Low Osmolar Contrast (ICD-10-PCS; 2018-10-26)
PROC: 5A1D70Z Performance of Urinary Filtration, Intermittent, Less than 6 Hours Per Day (ICD-10-PCS; 2018-10-26)
PROC: 5A1D70Z Performance of Urinary Filtration, Intermittent, Less than 6 Hours Per Day (ICD-10-PCS; 2018-10-28)
PROC: 5A1D70Z Performance of Urinary Filtration, Intermittent, Less than 6 Hours Per Day (ICD-10-PCS; 2018-10-29)
DX: T82.7XXA Infection and inflammatory reaction due to other cardiac and vascular devices, implants and grafts, initial encounter (principal); E43 Unspecified severe protein-calorie malnutrition; N18.6 End stage renal disease; I13.0 Hypertensive heart and chronic kidney disease with heart failure and stage 1 through stage 4 chronic kidney disease, or unspecified chronic kidney disease; N39.0 Urinary tract infection, site not specified; K50.10 Crohn's disease of large intestine without complications; I50.32 Chronic diastolic (congestive) heart failure; K92.1 Melena; Z68.42 Body mass index [BMI] 45.0-49.9, adult; K55.9 Vascular disorder of intestine, unspecified; I95.89 Other hypotension; F32.9 Major depressive disorder, single episode, unspecified; F41.9 Anxiety disorder, unspecified; D63.8 Anemia in other chronic diseases classified elsewhere; E66.01 Morbid (severe) obesity due to excess calories; I89.0 Lymphedema, not elsewhere classified; G89.29 Other chronic pain; K21.9 Gastro-esophageal reflux disease without esophagitis; Y84.1 Kidney dialysis as the cause of abnormal reaction of the patient, or of later complication, without mention of misadventure at the time of the procedure; K42.9 Umbilical hernia without obstruction or gangrene; R16.2 Hepatomegaly with splenomegaly, not elsewhere classified; D69.6 Thrombocytopenia, unspecified; D35.00 Benign neoplasm of unspecified adrenal gland; Z99.2 Dependence on renal dialysis; Z85.41 Personal history of malignant neoplasm of cervix uteri; Z85.89 Personal history of malignant neoplasm of other organs and systems; Z90.710 Acquired absence of both cervix and uterus; Z87.19 Personal history of other diseases of the digestive system; Z92.3 Personal history of irradiation; Z90.49 Acquired absence of other specified parts of digestive tract; Z98.84 Bariatric surgery status; Z88.0 Allergy status to penicillin; Z88.7 Allergy status to serum and vaccine; Z88.8 Allergy status to other drugs, medicaments and biological substances; Z88.3 Allergy status to other anti-infective agents; Z91.041 Radiographic dye allergy status; Z79.899 Other long term (current) drug therapy; Z79.82 Long term (current) use of aspirin; Y92.89 Other specified places as the place of occurrence of the external cause; Z82.49 Family history of ischemic heart disease and other diseases of the circulatory system; Z80.9 Family history of malignant neoplasm, unspecified; Z92.21 Personal history of antineoplastic chemotherapy
CPT/HCPCS: 10078; 10879; 32100

== ENCOUNTER → 2019-04-28 | Outpatient (CLI) | payer OTHER, BC ==
[~2019-04-28] MED LIST changes: +COLESTID1 GM PO; +FLAGYL500 M1 PO; +IMODIUM A-D2 MG PO; +LEVAQUIN 500 M500 M2 PO
== END ==
LOC: CAT 14:59
DX: K42.9 Umbilical hernia without obstruction or gangrene (principal); M47.816 Spondylosis without myelopathy or radiculopathy, lumbar region; N26.1 Atrophy of kidney (terminal); I25.10 Atherosclerotic heart disease of native coronary artery without angina pectoris; Z85.42 Personal history of malignant neoplasm of other parts of uterus; Z87.442 Personal history of urinary calculi; Z90.49 Acquired absence of other specified parts of digestive tract

== ENCOUNTER 2019-09-21 21:55 | Inpatient (IN) | payer OTHER, BC ==
[~2019-09-21] VITALS: Ht 152.4 cm; Wt 99.9 kg
[2019-09-21 21:59] VITALS: BP 87/39
[2019-09-21] MEDS ORDERED: PEPCID20 MG PO (22:16)
[2019-09-22 00:15] LABS: ABSOLUTE NEUTROPHILS 7.5 thou/uL (1.4-8.2); BASOPHILS 0.2 % (0.0-2.0); EOSINOPHILS 0.1 % (0.0-3.0); HEMATOCRIT 35.4 % (37.0-47.0); HEMOGLOBIN 11.3 gm/dL (12.0-15.0); LYMPHOCYTES 3.4 % (24.0-44.0); MCH 33.9 pg (26.0-34.0); MCHC 31.8 g/dL (28.0-37.0); MCV 106.6 fL (80.0-100.0); MONOCYTES 4.4 % (1.0-8.0); PLATELET COUNT 125 thou/uL (150-400); POLYS 91.9 % (36.0-66.0); RBC 3.32 mil/uL (4.20-5.00); RDW 18.5 % (10.5-14.5); WBC 8.2 thou/uL (4.0-11.0)
[2019-09-22 00:19] LABS: CALCIUM 7.7 mg/dL (8.5-10.1); CREATININE 3.7 mg/dL (0.6-1.0); POTASSIUM 4.9 mmol/L (3.5-5.1)
[2019-09-22 00:25] LABS: ALBUMIN 1.9 g/dL (3.4-5.0); APTT 33.6 Seconds (24.5-32.8); INR 1.1; PROTIME 10.8 Seconds (9.3-11.4); TOTAL BILIRUBIN 0.2 mg/dL (<0.1-1.0); TOTAL PROTEIN 5.7 g/dL (6.4-8.2)
[2019-09-22 00:43] LABS: MAGNESIUM 1.4 mg/dL (1.8-2.4); PHOSPHORUS 4.5 mg/dL (2.5-4.9)
[2019-09-22 01:32] VITALS: BP 91/46
--- NOTE | 2019-09-22 01:37 | NUR ---
CALLED UNIT TO GIVE REPORT. FLOOR RN IS IN A PATIENT'S ROOM. WILL CALL BACK SHORTLY.
[2019-09-22 01:57] VITALS: BP 91/46
--- NOTE | 2019-09-22 02:13 | NUR ---
REPORT GIVEN TO SHERYL BARFIELD.
[2019-09-22 02:32] VITALS: BP 97/47
--- NOTE | 2019-09-22 03:21 | NUR ---
PT WAS ADMITTED TO THE UNIT FROM THE ER IN A STABLE CONDITION.ADMISSION HX EDUCATION AND ASSESSMENT COMPLETED.NO BM NOTED SO FAR.BLE +1 EDEMA NOTED.DIALYSIS MWF.R UPPER ARM FISTULA POSITIVE FOR THRILL AND BRUIT.ULCER ON HER L HEEL,DRSG CHANGED.PT ON IVF AND PROTONIX.PT'S BP STILL UNDER THE ONE HUNDREDS.PT RESTING ON HER BED AT THIS TIME.FALL PRECAUTIONS IN PLACE,CALL LIGHT WITHIN REACH.
[2019-09-22 07:08] VITALS: BP 92/45
[2019-09-22 09:41] LABS: HEMATOCRIT 35.9 % (37.0-47.0); HEMOGLOBIN 11.5 gm/dL (12.0-15.0); MCH 34.4 pg (26.0-34.0); MCV 107.6 fL (80.0-100.0); RBC 3.34 mil/uL (4.20-5.00); RDW 18.9 % (10.5-14.5); WBC 10.4 thou/uL (4.0-11.0)
[2019-09-22 09:58] LABS: CALCIUM 7.9 mg/dL (8.5-10.1); CREATININE 4.1 mg/dL (0.6-1.0); POTASSIUM 4.6 mmol/L (3.5-5.1)
--- NOTE | 2019-09-22 14:01 | NUR ---
PT A&OX4, VSS, PAIN IN ABDOMEN. PATIENT COMPLAINS OF NAUSEA NO VOMITING, ZOFRAN GIVEN. IV PATENT, DRESSING CHANGED TO LEFT HEEL. PATIENT HAVING SMALL LOOSE STOOLS. DARK GREEN IN APPEARANCE AT 1400. THIS A.M. PATIENT HAD TWO MEDIUM, LOOSE, BLACK STOOLS. PATIENT HAD CT WITH CONTRAST OF ABD THIS A.M. PATIENT IS SCHEDULED FOR EGD AND COLONOSCOPY. NO SIGNS OF DISTRESS. WILL CONTINUE TO MONITOR.
--- NOTE | 2019-09-22 14:12 | NUR ---
WOUND CONSULT; THE LEFT HEEL HAS A STAGE 3 PRESSURE WOUND. TENDER, LARGE AMOUNT OF YELLOW DRAINAGE FOR A 1 X 1 X 0.2 WOUND. PATIENT REFUSED A PRAFO OR FOOT ON A PILLOW WELL DEMANDED HER SHOE ON AT ALL TIMES RE; URINARY URGENCY THE SHOE IS ALSO SOAKED WITH DRAINAGE. RECOMMENDATIONS; 1-PRAFO BOOT OR PILLOW 2-AG FOAM SECURED WITH A TUBIGIP 3-CONSIDER A FARRIS CATH OR A PUREWICK.
[2019-09-22 15:27] VITALS: BP 89/46
[2019-09-22 15:50] LABS: HEMATOCRIT 35.1 % (37.0-47.0); HEMOGLOBIN 11.1 gm/dL (12.0-15.0)
[2019-09-22 19:35] VITALS: BP 104/49
[2019-09-23 01:45] LABS: HEMATOCRIT 32.6 % (37.0-47.0); HEMOGLOBIN 10.4 gm/dL (12.0-15.0)
--- NOTE | 2019-09-23 03:20 | NUR ---
ASSUMED PT CARE AT 1900. PT HAD MULTIPLE LOOSE STOOLS THIS EVENING. UP TO BEDSIDE COMMODE WITH MINIMAL ASSIST. WEARING O2 FOR SLEEP. ANXIOUS ABOUT PLAN OF CARE - AWAITING DR. LANDA'S VISIT. PT REQUESTING SHOES STAY ON WHILE IN BED. WILL CONTINUE TO MONITOR.
[2019-09-23 03:58] VITALS: BP 93/51
[2019-09-23 05:24] LABS: HEMATOCRIT 31.3 % (37.0-47.0); HEMOGLOBIN 10.2 gm/dL (12.0-15.0)
[2019-09-23 07:43] LABS: FOLIC ACID 5.5 ng/mL (8.6-58.9)
[2019-09-23 08:30] VITALS: BP 95/46
[2019-09-23 11:30] LABS: HEMATOCRIT 27.5 % (37.0-47.0); HEMOGLOBIN 8.8 gm/dL (12.0-15.0); MCH 34.1 pg (26.0-34.0); MCV 106.6 fL (80.0-100.0); RBC 2.58 mil/uL (4.20-5.00); RDW 18.2 % (10.5-14.5); WBC 4.8 thou/uL (4.0-11.0)
--- NOTE | 2019-09-23 12:20 | NUR ---
ASSUMED CARE AT 0700. PT ALERT AND ORIENTED. C/O DIARRHEA. NO OTHER COMPLAINTS AT THIS TIME. DIAYLSIS RN HERE TO START. PIV NO COMPLICATIONS. AWAITING STOOL SAMPLE. WILL CONTINUE TO MONITOR
--- NOTE | 2019-09-23 16:35 | NUR ---
CASE OPENED FOR DC PLANNING. CLINICAL INFO REVIEWED. PT RESIDES IN HOUSE WITH ROOMMATE. DIALYZES M[facility]F AT [facility] AND USES [employer] TO AND ROOMMATE KRISTIAN PICKS HER UP. PT IS INDEPENDENT WITH ADLS, USES WALKER IN HOME AND [employer] IN COMMUNITY. [facility] IN PAST GOAL TO RETURN HOME. CM TO FOLLOW.
[2019-09-23 18:11] LABS: MAGNESIUM 1.8 mg/dL (1.8-2.4); PHOSPHORUS 2.9 mg/dL (2.5-4.9)
[2019-09-23 18:18] LABS: HEMATOCRIT 28.6 % (37.0-47.0); HEMOGLOBIN 9.2 gm/dL (12.0-15.0)
[2019-09-23 20:15] VITALS: BP 95/54
--- NOTE | 2019-09-23 20:20 | NUR ---
THIS NURSE RECEIVED NOTICE IN REPORT THAT PATIENT WAS TO TRANSFER TO ROOM 208 IN CCU. REPORT GIVEN TO PATRICK BY THIS NURSE AT 1955 AND TRANSFERRED WITH AM NURSE AT 2008 VIA WHEELCHAIR. PATIENT ALERT AND ORIENTED X4. COOPERATIVE WITH CARE. NO MEDS PASSED BEFORE TRANSFER.
[2019-09-24 00:06] VITALS: BP 98/49
--- NOTE | 2019-09-24 04:49 | NUR ---
PT WAS A TRANSFER FROM . PT WAS TRANSFERRED DUE COMPLAINTED OF IRREGULAR HEART. PT IS ALSO POSITIVE FOR CIDFF. ISOLATION PRECAUTION IN PT. PT IS ALERT AND ORIENTED WITH NO SIGN OF DISTRESS NOTED IN PT. DENIES ANY PAIN. ASSESSMENT COMPLETED AND DOCUMENTED. FALL PRECAUTION IN PLACE. SCHEDULED MEDS ADMINISTERED TO PT. TOLERATED PO INTAKE. NO ACUTE EVENTS OVERNIGHTS. HEART RATE STABLE. CONTINUE TO MONITOR PATIENT. DENIES ANY FURTHER NEEDS AT THIS TIME.
[2019-09-24 05:31] VITALS: BP 86/61
[2019-09-24 05:59] LABS: HEMATOCRIT 32.9 % (37.0-47.0); HEMOGLOBIN 10.5 gm/dL (12.0-15.0); MCH 34.5 pg (26.0-34.0); MCHC 31.9 g/dL (28.0-37.0); MCV 108.2 fL (80.0-100.0); RBC 3.04 mil/uL (4.20-5.00); RDW 18.5 % (10.5-14.5); WBC 5.1 thou/uL (4.0-11.0)
[2019-09-24 06:13] LABS: ALBUMIN 2.5 g/dL (3.4-5.0); CALCIUM 8.3 mg/dL (8.5-10.1); CREATININE 3.7 mg/dL (0.6-1.0); MAGNESIUM 1.9 mg/dL (1.8-2.4); PHOSPHORUS 4.2 mg/dL (2.5-4.9); POTASSIUM 3.7 mmol/L (3.5-5.1); TOTAL BILIRUBIN 0.4 mg/dL (<0.1-1.0); TOTAL PROTEIN 5.9 g/dL (6.4-8.2)
[2019-09-24 08:50] VITALS: BP 96/42
--- NOTE | 2019-09-24 10:55 | EKG ---
[facility] [place] [address] ELECTROCARDIOGRAM REPORT Name: EDGARDO PEDRAZA Room #: 208-P ADM IN M.R.#: [id number] Admission: 09/22/19 Attend Phys: Kiki Dhillon MD Discharge: Date of : 53 Report #: [id number] THIS REPORT FOR: cc: Sonido Miranda MD, Christopher B. MD Lundgren,Jose Sullivan MD [facility] ~ THIS REPORT FOR: //name// [facility] Test Date: 2019-09-23 Test Time: 18:28:12 Pat Name: EDGARDO PEDRAZA Department: Room: 208 Gender: F Four H Agent: Fernanda MENDOZA : 1955 Requested By: Kenzie Giraldo Order Number: [id number] MD: Jose Hester Measurements Intervals Sheridan Rate: 78 P: 43 GA: 177 QRS: -65 QRSD: 107 T: 3 QT: 388 QTc: 442 Interpretive Statements Sinus rhythm Left axis deviation Poor R wave progression Nonspecific T wave abnormality No previous ECGs available for comparison Electronically Signed On 09-24-2019 10:54:18 CDT by Jose Hester [email or web address] <ELECTRONICALLY SIGNED> By: Jose Hester MD, [facility] 09/24/19 1054 1828 1828 Jose Hester MD, [facility] /EPI
--- NOTE | 2019-09-24 10:59 | EKG ---
[facility] Yaima Jesus [facility] [place] [address] ELECTROCARDIOGRAM REPORT Name: EDGARDO PEDRAZA Room #: 208-P ADM IN M.R.#: [id number] Admission: 09/22/19 Attend Phys: Kiki Dhillon MD Discharge: Date of : 53 Report #: [id number] THIS REPORT FOR: cc: Sonido Miranda MD, Christopher B. 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 MADRIGAL : 1955 Requested By: Kiki Dhillon Order Number: [id number] MD: Jose Hester Measurements Intervals Blair Rate: 54 P: SC: QRS: -28 QRSD: 123 T: 1 QT: 476 QTc: 452 Interpretive Statements Sinus rhythm with occasional premature supraventricular complexes Low voltage QRS Poor R wave progression Compared to ECG 09/14/2018 16:34:13 Atrial premature complexes are not present Electronically Signed On 09-24-2019 10:57:51 CDT by Jose Hester [email or web address] <ELECTRONICALLY SIGNED> By: Jose Hester MD, FAC 09/24/19 1057 9 9 Jose Hester MD, FAC /EPI
[2019-09-24 16:12] VITALS: BP 99/47
--- NOTE | 2019-09-24 19:24 | NUR ---
VSS-AFEBRILE. LUNGS CLEAR-ROOM AIR. C/O SIGNIFICANT LOWER BACK AND ABDOMINAL PAIN. PAIN IS PARTIALLY RELIEVED WITH IV AND PO PAIN MEDICATIONS. NO REPORTED N/V, HYPERACTIVE BS. OOB WITH SBA TO USE BSC, TWO EPISODES OF DIARRHEA, NO VISIBLE BLOOD PRESENT. REMAINED ANEURIC THROUGH SHIFT. LEFT HEEL DRESSING CHANGE PERFORMED. REFUSED PRESCRIBED WOUND CARE, AND REQUESTED USING SANTYL CREAM AND GAUZE DRESSING, WHICH IS WHAT SHE HAS BEEN PRESCRIBED FOR MOTHS WITH HER NORMAL WOUND CARE PHYSICIAN. ELEVATED LEFT LEG TO EASE DISCOMFORT AND SWELLING. FALL PRECAUTIONS IN PLACE, CALLS APPROPRIATELY FOR ANY NEEDED ASSISTANCE.
[2019-09-24 20:45] VITALS: BP 96/44
--- NOTE | 2019-09-25 04:20 | NUR ---
ASSUMED PT CARE AT 1900. PT IS ALERT AND ORIENTED WITH NO SIGN OF DISTRESS NOTED IN PT. HEART RATE NORMAL. NO SIGN OF SVT. ASSESSMENT COMPLETED AND DOCUMENTED. SCHEDULED MEDS ADMINISTERED TO PT. TOLERATED PO INTAKE. NO N&V. PT IS STABLE THROUGHOUT THE NIGHT. DENIES ANY FURTHER NEEDS AT THIS TIME.
[2019-09-25 04:45] VITALS: BP 99/43
[2019-09-25 07:14] LABS: ABSOLUTE NEUTROPHILS 7.2 thou/uL (1.4-8.2); BASOPHILS 0.3 % (0.0-2.0); EOSINOPHILS 1.4 % (0.0-3.0); HEMOGLOBIN 10.1 gm/dL (12.0-15.0); LYMPHOCYTES 7.9 % (24.0-44.0); MCHC 31.6 g/dL (28.0-37.0); MCV 107.7 fL (80.0-100.0); MONOCYTES 7.8 % (1.0-8.0); PLATELET COUNT 173 thou/uL (150-400); POLYS 82.6 % (36.0-66.0); RBC 2.97 mil/uL (4.20-5.00); RDW 18.3 % (10.5-14.5); WBC 8.7 thou/uL (4.0-11.0)
[2019-09-25 09:44] VITALS: BP 94/47
[2019-09-25 09:58] LABS: ANISOCYTOSIS 2+; LARGE PLATELETS FEW; MACROCYTES 2+; MICROCYTES 1+
[2019-09-25 12:42] VITALS: BP 91/43
--- NOTE | 2019-09-25 14:23 | HC ---
[facility] [place] [address] CONSULTATION Name: EDGARDO PEDRAZA Room #: 208-P ADM IN Fernanda.Rusty.#: [id number] Admission: 09/22/19 Attend Phys: Darrel Lester MD Discharge: Date of : 53 Report #: [id number] THIS REPORT FOR: cc: Sonido Miranda MD,Enrrique Balderas MD, MD ~ CC: Kiki Miranda DATE OF SERVICE: 09/24/2019 CONSULTATION: Infectious diseases. HISTORY OF PRESENT ILLNESS: Temo Pedraza is a 64-year-old white female who was admitted to [facility] 09/22/2019 with lower GI bleeding. The patient needed extra heparin at dialysis because of clotting and came home and had bright red blood and melena per rectum. The patient was admitted to the hospital and evaluated. CT scan now suggests possible incarcerated internal hernia with ischemia. Infectious Disease consultation was requested. PAST MEDICAL HISTORY: The patient has a very complex medical history. She had cancer of the uterus in 2011. She had a hysterectomy followed with radiation and chemotherapy. The radiation damaged her kidneys and developed adhesions. She developed internal hernias with obstruction and perforation, which required multiple operations with a prolonged recovery. Other diagnoses include pulmonary hypertension, obesity, anxiety, depression, heart failure, kidney stones, end stage kidney disease, and history of C. difficile with antibiotics. ADDITIONAL SURGICAL HISTORY: Includes cholecystectomy and gastric surgery. ALLERGIES: THE PATIENT HAS ALLERGY TO PENICILLIN AND STATES CEPHALOSPORINS AN ALLERGY because it caused C. difficile. 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 She lives with a roommate for many years. She denies use of tobacco, alcohol or drugs. REVIEW OF SYSTEMS HISTORY: GENERAL: Negative for fevers, chills, sweats. The patient feels weak. ENT: The patient denies headache, sinus congestion, sore throat, trouble swallowing. CHEST: The patient denies cough, chest pain, shortness of breath. CARDIAC: The patient denies angina, syncope, or palpitation. GASTROINTESTINAL: The patient had some nausea, no vomiting. She now has diarrhea, which she says does not seem like C. diff and does not seem grossly bloody. She has diffuse abdominal pain made worse when taking anything p.o. GENITOURINARY: The patient is on dialysis. [address] [place] [address] CONSULTATION Name: EDGARDO PEDRAZA Room #: 208-P [facility] IN ..#: [id number] Admission: 09/22/19 Attend Phys: Darrel Lester MD Discharge: Date of : 53 Report #: [id number] EXTREMITIES: No complaints. PHYSICAL EXAMINATION: GENERAL: The patient appears ill, but comfortable, not in any distress. VITAL SIGNS: Show the patient is afebrile. She is chronically borderline hypotensive. SKIN: Shows some mild to moderate venous stasis changes, but no rash, lesion nor exanthem. Abdominal scars are well healed. ENT: Negative. MENTAL STATUS: Normal. CARDIOVASCULAR: Heart sounds are normal. LUNGS: Clear. ABDOMEN: Belly is obese, soft and mild to moderately tender. Bowel sounds are present. LABORATORY DATA: White count is 5.1, hemoglobin 10.5. Electrolytes normal. BUN 12, creatinine 3.7. The MCV was elevated at 108 and the B12 and folate were found to be low. She is now on supplementation. The CT scan is worrisome and that shows a high-grade small-bowel obstruction with possible air in the portal system. The bowel wall as well as the colon wall are very thickened. The radiologist is suspicious that this represents ventral hernia with trapped small bowel with ischemia. I am very concerned the patient may have ischemic bowel in a hernia sac. I recommend we initiate intensive antibiotic therapy in case she develops bowel wall perforation. We will use meropenem, dosed for dialysis. I will stop the doxycycline, but continue the metronidazole because of a history of C. difficile and for additional anaerobic coverage. We will also start probiotics at this time as well. I would like to do a followup CBC and also follow lactates as this can be a good marker for tissue ischemia. If the patient does not turn around quickly, she may need a PICC line for IV access. I appreciate the opportunity of input in the care of the patient. Dr. Miranda will return on Thursday for followup. I will follow up until then. <ELECTRONICALLY SIGNED> By: Enrrique Baez MD 09/25/19 1423 1835 2217 Enrrique Baez MD /nt
[2019-09-25 16:57] VITALS: BP 96/46
--- NOTE | 2019-09-25 18:20 | NUR ---
ASSUMED CARE OF PATIENT AT 0700. ASSESSMENTS COMPLETED. DENIES ANY NAUSEA OR VOMITING. CONTINUED EPISODES OF DIARRHEA. C/O CHRONIC LOWER BACK PAIN AND GENERALIZED ABDOMINAL PAIN RELIEVED WITH MORPHINE AND HYDROCODONE. ANEURIC. HEMOCIALYSIS PATIENT. DIET ADVANCED TO SOFT CARDIAC. PATIENT HAD CT WITHOUT ANY DIFFICULTY. ECHO SCHEDULED FOR TOMORROW. PATIENT TO CONTINUE WITH POC.
[2019-09-25 20:32] VITALS: BP 96/37
--- NOTE | 2019-09-26 03:14 | NUR ---
ASSESSMENTS CHARTED, MEDS GIVEN CHARTED. PATIENT STILL HAVING FREQUENT STOOLING DIARHHEA. PATIENT IS ANURIC. UP STANDBY TO BSC. C/O PAIN 01/15 RECEIVED MORPHINE DOSE IT WAS TOO SOON FOR HYDROCODONE. PATIENT IS SCHEDULED FOR 3.5 HOURS OF DIALYSIS IN THE MORNING. ECHO SCHEDULED FOR MORNING. PATIENTS ADMIT ORDER WAS SOMEHOW CANCELLED AND WE WERE UNABLE TO BACK DATE ADMISSION. EMAIL SENT TO CASE MANAGEMENT TO HELP CORRECT PROBLEM. FALL PRECAUTIONS IN PLACE DURING SHIFT.
[2019-09-26 03:57] VITALS: BP 96/55
[2019-09-26 07:30] VITALS: BP 101/40
--- NOTE | 2019-09-26 10:36 | NUR ---
WOUND COSNULT; THE WOUND IS STABLE TODAY. MUCH LESS DRAINAGE AND AND THE COLOR IS WNL. THE PATIENT IS REQUESTING REGRANEX BE USED ORDERED BY ANOTHER PHYSICAN. COMMUNICATED WITH THE PATIENTS NURSE TO F/U WITH THIS REQUEST. DISCUSSED WITH RN
[2019-09-26 11:30] VITALS: BP 105/55
--- NOTE | 2019-09-26 14:29 | 2DMMODE ---
[facility] [place] [address] 2 D/M-MODE ECHOCARDIOGRAM Name: EDGARDO PEDRAZA Room #: 208-P ADM IN M.R.#: [id number] Admission: 09/22/19 Attend Phys: Darrel Lester MD Discharge: Date of : 53 Report #: [id number] THIS REPORT FOR: cc: Sonido Miranda MD, Christopher B. MD Mancuso, Gerald M. MD [facility] ~ APPROVED REPORT Study performed: 09/26/2019 13:14:13 EXAM: Comprehensive 2D, Doppler, and color-flow Echocardiogram Patient Location: Bedside Room #: 208 Status: routine BSA: 1.94 HR: 76 bpm BP: 101/40 mmHg Rhythm: NSR Other Information Study Quality: Adequate Technically limited study due to limited mobility, obesity. Indications Diastolic heart failure, PSVT. 2D Dimensions IVSd: 9.44 (7-11mm) LVOT Diam: 22.34 (18-24mm) LVDd: 49.37 mm PWd: 10.76 (7-11mm) Ascending Ao: 37.31 (22-36mm) LVDs: 36.73 (25-40mm) Aortic Root: 36.76 mm Volumes Left Atrial Volume (Systole) Single Plane 4CH: 69.85 mL Single Plane 2CH: 65.54 mL LA ESV Index: 38.00 mL/m2 Aortic Valve AoV Peak Ricardo.: 1.70 m/s AO Peak Gr.: 11.55 mmHg LVOT Max P.27 mmHg LVOT Max V: 1.03 m/s MELA Vmax: 2.38 cm2 [facility] [address] [address] 2 D/M-MODE ECHOCARDIOGRAM Name: EDGARDO PEDRAZA Room #: 208-P [facility] IN [facility]#: [id number] Admission: 09/22/19 Attend Phys: Darrel Lester MD Discharge: Date of : 53 Report #: [id number] Mitral Valve E/A Ratio: 1.6 MV Decel. Time: 226.36 ms MV E Max Ricardo.: 1.33 m/s MV A Ricardo.: 0.85 m/s MV PHT: 65.64 ms IVRT: 51.90 ms Pulmonary Valve PV Peak Ricardo.: 0.96 m/s PV Peak Gr.: 3.69 mmHg Tricuspid Valve TR Peak Ricardo.: 3.50 m/s RAP Estimate: 10.00 mmHg TR Peak Gr.: 48.00 mmHg PA Pressure: 58.00 mmHg Left Ventricle The left ventricle is normal size. There is normal left ventricular wall thickness. Left ventricular systolic function is normal. LVEF is 50-55%. Right Ventricle Right ventricle is mildly dilated. The right ventricular systolic function is low normal. Atria Left atrium is mildly dilated. Right atrium is mildly dilated. Aortic Valve The aortic valve is normal in structure. No aortic regurgitation is present. There is no aortic valvular stenosis. Mitral Valve The mitral valve is normal in structure. Trace mitral regurgitation. No evidence of mitral valve stenosis. Tricuspid Valve The tricuspid valve is normal in structure. Mild tricuspid regurgitation. Estimated PAP is 55-60mmHg. Pulmonic Valve Pulmonic valve is not well visualized. Trace pulmonic regurgitation. [facility] [address] [address] 2 D/M-MODE ECHOCARDIOGRAM Name: EDGARDO PEDRAZA Room #: 208-P [facility] IN M.R.#: [id number] Admission: 09/22/19 Attend Phys: Darrel Lester MD Discharge: Date of : 53 Report #: [id number] Great Vessels The aortic root is normal in size. The ascending aorta is normal in size. IVC is dilated and collapses >50% with inspiration. Pericardium There is no pericardial effusion. <Conclusion> The left ventricle is normal size. LVEF is 50-55%. Right ventricle is mildly dilated. The right ventricular systolic function is low normal. Left atrium is mildly dilated. Right atrium is mildly dilated. The aortic valve is normal in structure. Trace mitral regurgitation. Mild tricuspid regurgitation. Estimated PAP is 55-60mmHg. The aortic root is normal in size. There is no pericardial effusion. The ascending aorta is normal in size. <ELECTRONICALLY SIGNED> By: Alin Lara MD, FACC 09/26/19 1428 1428 1428 Alin Lara MD, [facility] /INF
--- NOTE | 2019-09-26 15:17 | NUR ---
Assumed pt care this am vs have been stable. Dialysis done this am, no fluid was pulled as per dialysis nurse. Pain was managed with medication, partial relief was noted. Fall precautiona in place, though pt is able to go to the commode with no issues. Wound care done as per our MD orders pt did not complain, though pt perefers to wear her shoes the whole day, despite the fact that the left shoe has a foul ordor d/t the would. No nausea or vomiting was noted. diet and medications are well tolerated. POC followed with no signs or verbalizations of distress noted.
[2019-09-26 16:30] VITALS: BP 101/44
[2019-09-26 20:24] VITALS: BP 96/42
--- NOTE | 2019-09-27 04:45 | NUR ---
ASSESSMENTS CHARTED, MEDS GIVEN CHARTED. PATIENT RESTING IN BED DURING SHIFT. PATIENT ATE SOLID FOOD FOR DINNER, HAD DIGESTIVE UPSET FOR HOURS AFTER DINNER. INCREASED DIARHHEA STOOLS. C/O PAIN IN BACK, JOINTS, AND GENERAL 25/10. GAVE PAIN MEDICINE AND PATIENT WAS ABLE TO SLEEP FOR SEVERAL HOURS. FELT BETTER ON WAKING. PLAN OF CARE IS TO CONTINUE ABX TREATMENT.
[2019-09-27 05:26] LABS: ALBUMIN 2.4 g/dL (3.4-5.0); CALCIUM 7.6 mg/dL (8.5-10.1); MAGNESIUM 1.6 mg/dL (1.8-2.4); POTASSIUM 3.1 mmol/L (3.5-5.1); TOTAL BILIRUBIN 0.3 mg/dL (<0.1-1.0)
[2019-09-27 05:31] LABS: HEMATOCRIT 36.8 % (37.0-47.0); HEMOGLOBIN 11.7 gm/dL (12.0-15.0); MCH 34.3 pg (26.0-34.0); MCHC 31.8 g/dL (28.0-37.0); MCV 107.7 fL (80.0-100.0); PLATELET COUNT 200 thou/uL (150-400); RBC 3.42 mil/uL (4.20-5.00); RDW 18.1 % (10.5-14.5); WBC 6.9 thou/uL (4.0-11.0)
[2019-09-27 05:49] VITALS: BP 98/49
[2019-09-27 06:11] LABS: CREATININE 4.7 mg/dL (0.6-1.0)
[2019-09-27 07:36] LABS: ABSOLUTE NEUTROPHILS 4.9 thou/uL (1.4-8.2); ANISOCYTOSIS SLIGHT; MACROCYTES 2+; PLATELET ESTIMATE NORMAL
[2019-09-27 08:29] VITALS: BP 95/61
--- NOTE | 2019-09-27 10:34 | NUR ---
WOUND CARE F/U ASSESSED WOUND W/ CERTIFIED DIALYSIS TECHNICIAN JENNIFER, PT COOPERATIVE BUT STILL INSISTS ON WEARING SHOE AT ALL TIMES DUE TO STABILITY IN GETTING OUT OF BED USING COMMODE, DRAINAGE NOTED IN SHOE, ALSO REFUSES PRAFO AISHA, SUGGESTED PT FOR FAMILY TO PERHAPS BRING ANOTHER SHOE AND COULD LEAVE AT SR. MERCHANDISE PLANNER DUE TO COVID RESTRICTIONS, STATES SHE WILL TALK HER FAMILY, ULCER HEALING W/ CURRENT TX AND PT INFORMED SHE WAS WANTING TO CONT SANTYL OINT, INFORMED AGAIN OF REASON FOR DEBRIDING AGENT AND IS CONTRAINDICATED NOW WOUND CLEAN W/ PINK VIABLE TISSUE, AGREEABLE TO CURRENT TX, ALLOWED FOOT TO BE ELEVATED, OFF LOADING, REMINDED STAFF TO CHECK ON BED REQ ORDER LOW AIR LOSS PUMP ELECTRICAL PLUG ON BED NOT WORKING RECOMMENDATIONS CONT CURRENT TX. OFF LOADING PRESSURE RELIEF MUCH POSSIBLE L HEEL F/U ON APPLICATION LOW AIR LOSS PUMP TO BED CERTIFIED DIALYSIS TECHNICIAN AWARE
[2019-09-27 12:13] VITALS: BP 94/50
--- NOTE | 2019-09-27 12:57 | NUR ---
Patient with colitis and loose stools. She dializes MWF at [email or web address]. Therapy evals ordered today. Cont plan home once medically stable.
[2019-09-27 17:55] VITALS: BP 113/49
--- NOTE | 2019-09-27 19:50 | NUR ---
assumed pt care this am, wound care done qwith wound care nurse, pt still insists on her own regiment vs hospital but allow us to clean and change the dressing. Loose stools are still noted but more jelly formed. Vs stable, was able to eat moreof her food today. New medication given for loose bowels, pt being monitored. POC followed, with no signs or verbalizations of distress. endorsed to the night nurse.
[2019-09-27 20:59] VITALS: BP 104/48
--- NOTE | 2019-09-28 05:12 | NUR ---
ASSESSMENTS CHARTED, MEDS CHARTED GIVEN. STILL UP AND DOWN TO BSC WITH DIAHRREA. PATIENTS STRENGTH IS WEAKENING WITH THE FREQUENT BOWEL MOVEMENTS. PLAN IS FOR HER TO HAVE DIALYSIS TODAY FOR 3.[address]CAUTIONS IN PL[address] DURING SHIFT. DENIED PAIN DURING SHIFT.
[2019-09-28 05:45] VITALS: BP 106/49
[2019-09-28 07:58] VITALS: BP 106/48
--- NOTE | 2019-09-28 11:12 | NUR ---
Received awake on bed. Due medications given as prescribed, able to swallow meds w/o difficulty. On room air. Vital signs stable. On heart monitoring, no complaints of chest pain, heaviness and crushing sensation. A+Ox4. Still with persistent loose stools, able to use bedside commode; PRN loperamide given as prescribed- bowel movement charted. With SL at R wrist- on IV antibiotics. Complained of back pain, due PRN pain meds given as prescribed. With L heel sore- wound nurse Madalyn has seen the pt this AM. Pt prefers to keep her shoes on even on the bed, physician and nurse aware. On dialysis M-W-F, scheduled today, seen by dialysis nurse, tolerated well; dialysis access at R upper arm- bruit and thrill present; no bleeding and signs of infection noted. Assisted in ADLs. Tolerating meals well, no nausea, no vomiting and no abdominal pain noted. Dialysis nurse requested for NS x 2 bags- given to him; orders for Hepa B Ag and Ab placed as requested, he obtained specimen and sent to lab. To continue monitoring patient.
[2019-09-28 13:08] LABS: HEP B SURFACE Ab(ANTI-HBS Non Reactive (()); HEPATITIS B SURFACE AG Negative (Negative)
[2019-09-28 16:52] VITALS: BP 82/64
[2019-09-28 20:15] VITALS: BP 108/43
[2019-09-29] VITALS (7 sets, daily range): BP systolic 92–103; BP diastolic 43–51
[2019-09-29 05:35] LABS: HEMATOCRIT 31.4 % (37.0-47.0); HEMOGLOBIN 10.1 gm/dL (12.0-15.0); MCH 34.4 pg (26.0-34.0); MCHC 32.1 g/dL (28.0-37.0); MCV 107.2 fL (80.0-100.0); RBC 2.93 mil/uL (4.20-5.00); RDW 18.5 % (10.5-14.5); WBC 6.1 thou/uL (4.0-11.0)
[2019-09-29 05:47] LABS: CALCIUM 7.2 mg/dL (8.5-10.1); CREATININE 4.3 mg/dL (0.6-1.0); MAGNESIUM 1.5 mg/dL (1.8-2.4); POTASSIUM 3.1 mmol/L (3.5-5.1)
--- NOTE | 2019-09-29 13:41 | NUR ---
Case discussed with the care team. Likely dc to home tomorrow after dialysis. No hh or cm interventions indicated. DC planner internship to fax Edin HAMMONDI the pt's dc instructins for resumption of her normal outpt schedule. DCI updated on anticipated dc tomorrow.
--- NOTE | 2019-09-29 19:37 | NUR ---
ASSUMED CARE PT SHIFT CHANGE. ASSESSMENT CHARTED.MEDS GIVEN PER AUG. PT ALERT AND ORIENTED. VSS--BP RUNS SOFT, ASYMPTOMATIC AND ON MIDODRINE. O2 SATS WNL ON ROOM AIR, DENIES SOB. PT UP INDEPENDENTLY, CONINUES TO HAVE LOOSE BOWELS, ALTHOUGH PT SAYS THEY ARE A BIT MORE FORMED. WOUND CARE DONE PER ORDERS. APPETITE ADEQUATE. PLAN IS FOR PT TO BE DIALYZED TOMORROW THEN DC HOME. PT CURRENTLY RESTING IN BED WITH NO APPARENT NEEDS. WILL CONT TO MONITOR AND FOLLOW POC.
--- NOTE | 2019-09-30 03:33 | NUR ---
ASSUMED PT CARE AT 1900, PT IS AWAKE, A&OX4, VSS, PT IS ON ROOM AIR, WOUND TO THE LEFT HEEL INTACT, COMPLAINED OF PAIN,MEDICATED PRN, ASSESSMENTS CHARTED, RESTED WITH NO FURTHER COMPLAINS, WILL CONTINUE TO MONITOR
[2019-09-30 04:04] VITALS: BP 105/53
[2019-09-30 08:15] VITALS: BP 116/57
[2019-09-30 11:13] VITALS: BP 103/55
[2019-09-30] MEDS ORDERED: FLORANEX GRANU1 EACH PO (12:18)
[2019-09-30] MEDS ORDERED: PROTONIX40 M2 PO (12:18)
[2019-09-30] MEDS ORDERED: LOPERAMIDE 2 MG2 M1 PO (12:18)
[2019-09-30] MEDS ORDERED: CIPRO500 M1 PO (12:18)
[2019-09-30] MEDS ORDERED: FOLIC ACID1 MG PO (12:18)
[2019-09-30] MEDS ORDERED: FIBERCON CHEWA625 MG PO (12:18)
[2019-09-30] MEDS ORDERED: METRONIDAZOLE500 M4 PO (12:18)
[2019-09-30 12:45] VITALS: BP 94/51
[2019-09-30 13:45] VITALS: BP 94/51
--- NOTE | 2019-09-30 13:59 | NUR ---
PT CARE ASSUMED AT 0700. A&Ox4. PT RECEIVED DIALYSIS THIS AM AND 1 LITER WAS TAKEN OFF. MED SURG PT. UP TO THE BEDSIDE COMMODE INDEPENDENTLY IN THE ROOM. IV IS PATENT WITH NO REDNESS OR EDEMA. SALINE LOCKED. DIALYSIS ACCEDD HAS A BRUIT AND THRILL. BILATERAL EDEMA +1. BM TODAY WITH NO VISUAL EVIDENCE OF BLOOD. POTASSIUM WAS RECEHECKED AND WAS 3.1. MD AWARE AND ORAL FOOD WAS ADVICED. PT IS DISCAHRGING. INSTRUCTIONS GIVEN. PAPERS SIGNED. IV REMOVED. VITALS STABLE. FALL PROTOCOL IN PLACE. CALL LIGHT IN REACH.
--- NOTE | 2019-09-30 14:57 | NUR ---
PT DISCHARGING TODAY TO HOME WITH SELF CARE PT HAS DIALYSIS AT [facility] M-W- FAXED DC ORDERS/SUMMARY RECEIVED CONFIRMATION.
--- NOTE | 2019-10-04 10:31 | HC ---
[facility] [place] [address] CONSULTATION Name: EDGARDO PEDRAZA Room #: 208-P [facility] M.R.#: [id number] Admission: 09/22/19 Attend Phys: Darrel Lester MD Discharge: 09/30/19 Date of : 53 Report #: [id number] THIS REPORT FOR: cc: Sonido Miranda MD,Nataliya Light MD, MD ~ CC: Kiki Miranda DATE OF SERVICE: 09/23/2019 REASON FOR CONSULTATION: End-stage renal disease. REASON FOR PRESENTATION: Diarrhea, bloody bowel movement. HISTORY OF PRESENT ILLNESS: This is a very well-known patient to me. She is in end-stage renal disease, maintained on hemodialysis every Thursday, Thursday and Thursday. She presented to the hospital reporting significant diarrhea that started on Thursday. The patient had her dialysis done on Thursday and went home. She started to have significant diarrhea. Initially, it was nonbloody, but then she started to note some significant blood with her bowel movement. She presented to the Emergency Room and was found to have hypotension and significant CT findings suggestive of colitis, pneumatosis intestinalis, air in the portal venous system. She was admitted for further evaluation and management. The patient has had significant GI illnesses in the past. This includes a jejunoileal bypass back in 1969. She has history of Clostridium difficile diarrhea. She is currently being ruled out for C. diff. I was asked to manage her end-stage renal disease. PAST MEDICAL HISTORY: 1. End-stage renal disease due to chronic obstructions after chronic radiation secondary to endometrial carcinoma. 2. Diabetes mellitus. 3. Chronic hypertension. 4. Jejunoileal bypass. 5. Clostridium difficile. 6. Diastolic heart failure. 7. Chronic back pain. 8. Anxiety. 9. Recurrent kidney stones and urinary tract infection. 10. Adrenal adenoma. 11. Umbilical hernia. 12. Cholecystectomy. 13. Total abdominal hysterectomy with bilateral salpingo-oophorectomy. 14. Tonsillectomy. 15. Adenoidectomy. [facility] [address] [place] [address] CONSULTATION Name: EDGARDO PEDRAZA Room #: 208-P [facility] .R.#: [id number] Admission: 09/22/19 Attend Phys: Darrel Lester MD Discharge: 09/30/19 Date of : 53 Report #: [id number] 16. Drainage of left psoas abscess. 17. Adhesiolysis. 18. Jejunoileal bypass. ALLERGIES: CONTRAST AND PENICILLIN. 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 No drug or alcohol abuse. FAMILY HISTORY: Father of colon cancer at the age of 52. HOME MEDICATIONS: 1. Midodrine. 2. Flecainide. 3. Aspirin. 4. Lorazepam. REVIEW OF SYSTEMS: GENERAL: Significant for weakness. CARDIOVASCULAR: No chest pain or palpitation. PULMONARY: No cough or hemoptysis. GASTROINTESTINAL: As per the history of present illness. GENITOURINARY: Minimal urine. MUSCULOSKELETAL: Chronic back pain. NEUROLOGICAL: No headache, no dizziness. PHYSICAL EXAMINATION: GENERAL: The patient was alert, oriented, in no apparent distress. VITAL SIGNS: Blood pressure was marginal at 93/51, temperature was 36.8. HEAD AND NECK: No jugular venous distention. CHEST: Decreased air entry bilaterally. CARDIOVASCULAR: Regular with no rub detected. ABDOMEN: Soft, nontender. EXTREMITIES: Lower extremities, there is no edema. LABORATORY VALUES: Sodium 139, potassium 4.6, creatinine 4.1, BUN is 17. Abdomen CT showed small amount of portal venous air with atrophic kidneys. There is marked distention of the mid small bowel loops with marked wall thickening. There seems to be pneumatosis in the small bowel. There is some thickening of the ascending colon. The transverse and the descending colon were decompressed. ASSESSMENT AND PLAN: 1. End-stage renal disease. 2. Colitis. 3. Arrange for the patient to have her hemodialysis as usual[place] [address] CONSULTATION Name: EDGARDO PEDRAZA Room #: 208-P [facility] ..#: [id number] Admission: 09/22/19 Attend Phys: Darrel Lester MD Discharge: 09/30/19 Date of : 53 Report #: [id number] today. 4. Resume her midodrine. 5. Significant stooling, discontinue polyethylene glycol. Given her history of C. diff in the past, she will need to be ruled out. 6. We will continue to follow. <ELECTRONICALLY SIGNED> By: Nataliya Magaña MD 10/04/19 1031 [id number] [id number] Nataliya Magaña MD /nt
== END 2019-09-30 15:51 | disposition home or self-care (01) | DRG 871 ==
LOC: ER 21:55 → EROBS 09-22 01:11 → 4S 09-22 01:11 → 2N 09-22 01:11 → 4S 09-22 02:19 → 2N 09-23 20:35 → 4S 09-23 20:35 → 2N 09-25 04:33 → ENTRNSPT 09-30 15:35 → EDTRNSPTSTS 09-30 15:37 → 2N 09-30 15:51
PROVIDERS: Emergency Medicine; Hospitalist; Internal Medicine; Internal Medicine Infectious Disease; Nurse Practitioner; ADMIT Hospitalist
PROC: 5A1D70Z Performance of Urinary Filtration, Intermittent, Less than 6 Hours Per Day (ICD-10-PCS; principal; 2019-09-27)
DX: A41.9 Sepsis, unspecified organism (principal); N18.6 End stage renal disease; E43 Unspecified severe protein-calorie malnutrition; K92.1 Melena; I13.2 Hypertensive heart and chronic kidney disease with heart failure and with stage 5 chronic kidney disease, or end stage renal disease; I47.1 Supraventricular tachycardia; Z68.41 Body mass index [BMI] 40.0-44.9, adult; I50.32 Chronic diastolic (congestive) heart failure; K43.0 Incisional hernia with obstruction, without gangrene; K52.9 Noninfective gastroenteritis and colitis, unspecified; Z99.2 Dependence on renal dialysis; K63.89 Other specified diseases of intestine; E11.22 Type 2 diabetes mellitus with diabetic chronic kidney disease; M54.9 Dorsalgia, unspecified; G89.29 Other chronic pain; F41.9 Anxiety disorder, unspecified; F32.9 Major depressive disorder, single episode, unspecified; G47.00 Insomnia, unspecified; E83.42 Hypomagnesemia; D69.6 Thrombocytopenia, unspecified; D53.9 Nutritional anemia, unspecified; D63.8 Anemia in other chronic diseases classified elsewhere; I27.20 Pulmonary hypertension, unspecified; E87.6 Hypokalemia; E66.01 Morbid (severe) obesity due to excess calories; Z87.440 Personal history of urinary (tract) infections; Z90.89 Acquired absence of other organs; Z90.49 Acquired absence of other specified parts of digestive tract; Z98.84 Bariatric surgery status; Z90.722 Acquired absence of ovaries, bilateral; Z90.710 Acquired absence of both cervix and uterus; Z88.0 Allergy status to penicillin; Z91.041 Radiographic dye allergy status; Z83.6 Family history of other diseases of the respiratory system; Z80.1 Family history of malignant neoplasm of trachea, bronchus and lung; Z80.0 Family history of malignant neoplasm of digestive organs; Z79.82 Long term (current) use of aspirin; Z79.891 Long term (current) use of opiate analgesic; Z79.899 Other long term (current) drug therapy; Z92.21 Personal history of antineoplastic chemotherapy; Z79.01 Long term (current) use of anticoagulants
CPT/HCPCS: 10081; 10195; 10797; 32100

== ENCOUNTER → 2019-10-18 | Outpatient (CLI) | payer OTHER, BC ==
[~2019-10-18] MED LIST changes: +CIPRO500 M1 PO; +FIBERCON CHEWA625 MG PO; +FLORANEX GRANU1 EACH PO; +FOLIC ACID1 MG PO; +METRONIDAZOLE500 M4 PO; +PEPCID20 MG PO; +PROTONIX40 M2 PO
== END ==
LOC: SJCVCIMAG 10-11 09:43
DX: I45.10 Unspecified right bundle-branch block (principal); I49.3 Ventricular premature depolarization; C54.1 Malignant neoplasm of endometrium; I13.0 Hypertensive heart and chronic kidney disease with heart failure and stage 1 through stage 4 chronic kidney disease, or unspecified chronic kidney disease; I50.9 Heart failure, unspecified; N18.9 Chronic kidney disease, unspecified; E66.9 Obesity, unspecified; Z79.899 Other long term (current) drug therapy

== ENCOUNTER → 2019-11-03 | Outpatient (CLI) | payer OTHER, BC ==
[~2019-11-03] VITALS: Ht 152.4 cm; Wt 99.8 kg
--- NOTE | ~2019-11-03 | H ---
[facility] [place] [address] HISTORY AND PHYSICAL Name: EDGARDO PEDRAZA [id number] Admission: 11/03/19 Attend Phys: Alni Lara MD, Discharge: Date of : 53 Report #: [id number] THIS REPORT FOR: cc: Sonido Miranda MD,Sonido Lara,Alin Plascencia MD [facility] ~ CC: Sonido Lara DATE OF SERVICE: 11/03/2019 SHORT STAY SUMMARY HISTORY OF PRESENT ILLNESS: The patient is a 64-year-old female who is admitted today for right and left heart catheterization. I initially saw her in early September of this year with some PSVT and had been started back on her flecainide. Ejection fraction had been fairly well preserved lower limits of normal with a PA pressure of 60. She has end-stage renal disease and chronic diastolic heart failure. Progressively short of breath with some chest pain with some typical and atypical features. Nuclear stress testing suggested inferolateral ischemia. No documented CAD. HOME MEDICATIONS: Acidophilus, baby aspirin, Colestid, famotidine, flecainide 100 b.i.d., folic acid, loperamide, lorazepam, midodrine and Protonix. No real further significant hypotensive episodes, she states. PAST MEDICAL HISTORY: Positive for the chronic end-stage renal disease, macrocytic anemia, chronic diastolic heart failure, PSVT, DJD, obesity, orthostatic hypotension. REVIEW OF SYSTEMS: Negative except for stated above. SOCIAL HISTORY: No tobacco, social alcohol. Lives with a good friend. She is retired. FAMILY HISTORY: Negative for premature coronary artery disease. PHYSICAL EXAMINATION: GENERAL: She is pleasant, alert. VITAL SIGNS: Blood pressure is 100/70, pulse is in the 70s and regular. HEENT: Eyes reveal xanthelasmas. Pharynx is clear. NECK: Shows preserved upstrokes without JVD or bruits. LUNGS: Clear. CARDIOVASCULAR: Regular rate and rhythm, S1, S2 distant. ABDOMEN: Soft. No HSM or abdominal bruit. EXTREMITIES: Reveal trace to 1+ edema. Distal pulses diminished, but intact. [facility] [address] [place] [address] HISTORY AND PHYSICAL Name: EDGARDO PEDRAZA Room #: [facility]#: [id number] Admission: 11/03/19 Attend Phys: Alin Lara MD, Discharge: Date of : 53 Report #: [id number] NEUROLOGIC: Nonfocal. SKIN: Warm and dry without xanthoma or ulcer. MUSCULOSKELETAL: Valgus deformities of the knees. HOSPITAL COURSE: The patient subsequently underwent right and left heart catheterization. Right dominant system. No significant occlusive disease. Moderate left-sided disease, no intervention. Ejection fraction lower limits of normal. Moderate elevation in pulmonary pressures with a pulmonary wedge pressure of 22 mean and a PA pressure of 56/22. We will discuss the above with Dr. Magaña. We will restart her home medications. No evidence of significant ischemia and no significant stenosis for intervention here. Weight loss would be of some benefit here and perhaps some further volume management for dialysis. She should limit sodium and fluid restriction to some extent, although we are also dealing with some orthostatic hypotension on the other side. No indication for coronary intervention. We will follow discharge protocol. ASSESSMENT: 1. Mild 3-vessel coronary artery disease. Cardiac catheterization today. 2. Chronic diastolic heart failure with moderate pulmonary hypertension by right heart failure, right heart catheterization. 3. End-stage renal disease, on dialysis. 4. Chronic microcytic anemia. 5. Degenerative joint disease. Thank you for asking me to assist in the care of this patient. Followup scheduled in my office in 3 months. Follow up with Dr. Miranda in 3 months. By: 1247 1338 Alin Lara MD, FACC /nt
[2019-11-03 10:31] VITALS: BP 92/41
--- NOTE | 2019-11-04 16:39 | CATHLAB ---
[facility] [place] [address] INVASIVE PROCEDURE REPORT Name: EDGARDO PEDRAZA Room #: REG LETICIA Gonsales.#: [id number] Admission: 11/03/19 Attend Phys: Alin Lara MD, Discharge: Date of : 53 Report #: [id number] THIS REPORT FOR: cc: Sonido Miranda MD, Christopher B. MD Mancuso, Gerald M. MD [facility] ~ APPROVED REPORT Study performed: 11/03/2019 12:06:16 Patient Details Patient Status: Out-Patient Room #: The patient is a 64 year-old female Event Personnel Alin Lara Utilities And Maintenance Supervisor, Abdi Dhaliwal RN RN, Shawn Casarez RN, Leonid Storey RTR Solomon Cisse Sherra RTR Monitor, Rudolph Martin Interventional Radiologist, Aleena Tafoya RTR, [employer] [facility] Residential Green Building Designer Procedures Performed Marcos Access - R femoral vein Right and Left Heart Cath w/or w/o Coronarie [id number] [facility] 11535 Mod Sed Same Phys/QHP Ea [id number] Hemostasis w/ Mynx Indication Chest pain Procedure Narrative The was infiltrated with 1% Lidocaine subcutaneous anesthesia. A PINNACLE 6FR Sheath #[id number] sheath was inserted into the RFA^. Coronary angiography was performed using coronary diagnostic catheters. The right coronary system was accessed and visualized with a JR4 catheter. The left coronary system was accessed and visualized with a JL4 catheter. The left ventricle was accessed and visualized with a PIGTAIL catheter. Left ventriculogram was performed in 30 degree projection. Closure device was deployed with a 6 Fr MYNXGRIP 6/7F #[id number]. The patient tolerated the procedure well and there were no complications associated with the procedure. There was no hematoma. Intraoperative Conscious Sedation Sedation start time: 1157 Case end Time: 1251 [facility] [place] [address] INVASIVE PROCEDURE REPORT Name: KEILAEDGARDO Donovan [id number] Admission: 11/03/19 Attend Phys: Alin MNini Lara, Discharge: Date of : 53 Report #: [id number] Fentanyl 100 mcg Versed 1 mg SEDATION AMOUNTS,CONTRAST TOTALS, FLUORO DOSES [facility] MARTIN Fluoro Time: 4.77 minutes Dose: DAP 80111.20 cGycm2 727 mGy Contrast Type and Amount: Omnipaque 105 ml Hemodynamics The right atrial mean pressure is 16 mmHg. The right ventricular pressure is 55/3 mmHg. The pulmonary artery pressure is 48/18 mmHg with a mean of 27 mmHg. The mean pulmonary capillary wedge pressure is 22 mmHg. The aortic pressure is 96/42 mmHg with a mean of 64 mmHg. The left ventricular pressure is 97/8 mmHg with a mean of mmHg. The left ventricular end diastolic pressure is 17 mmHg. The cardiac output using thermo method is 8.15 L/min. The cardiac index using thermo method is 4.20 L/min/m2. Conclusion #1.normal left ventricular size and systolic function EF 60% #2 left main mildly disease giving rise to LAD and circumflex #3 LAD with mild irregularities no significant occlusive disease #4 nondominant circumflex with mild irregularities proximal calcification. #5 dominant right coronary artery no occlusive disease mild distal disease. #6 successful right heart catheterization with cardiac output by thermodilution. See above hemodynamics. <ELECTRONICALLY SIGNED> By: Alin Lara MD, FACC 11/04/19 1637 36 36 Alin Lara MD, FACC /INF
== END | disposition home or self-care (01) ==
LOC: CATH 09:01
DX: R07.9 Chest pain, unspecified (principal); I25.10 Atherosclerotic heart disease of native coronary artery without angina pectoris; I70.0 Atherosclerosis of aorta; I70.1 Atherosclerosis of renal artery; I73.9 Peripheral vascular disease, unspecified; N18.6 End stage renal disease; I50.9 Heart failure, unspecified; F32.9 Major depressive disorder, single episode, unspecified; F41.9 Anxiety disorder, unspecified; K21.9 Gastro-esophageal reflux disease without esophagitis; E66.09 Other obesity due to excess calories; Z98.890 Other specified postprocedural states; Z90.49 Acquired absence of other specified parts of digestive tract; Z79.899 Other long term (current) drug therapy; Z90.710 Acquired absence of both cervix and uterus; Z87.442 Personal history of urinary calculi; Z98.84 Bariatric surgery status; Z88.0 Allergy status to penicillin; Z91.041 Radiographic dye allergy status; Z88.8 Allergy status to other drugs, medicaments and biological substances; Z79.82 Long term (current) use of aspirin

== ENCOUNTER → 2019-12-01 | Outpatient (CLI) | payer OTHER, BC | LOC: CAT 13:17 | PROVIDERS: ATTEND Surgery | DX: N20.0 Calculus of kidney (principal); K46.9 Unspecified abdominal hernia without obstruction or gangrene; K52.9 Noninfective gastroenteritis and colitis, unspecified; Z98.0 Intestinal bypass and anastomosis status ==

== ENCOUNTER 2019-12-29 16:56 | Emergency (ER) | payer OTHER, BC ==
[~2019-12-29] VITALS: Ht 152.4 cm; Wt 99.8 kg
[~2019-12-29 16:56] MED LIST changes: +ATIVAN0.5 M1 PO
[2019-12-29 19:04] LABS: ABSOLUTE NEUTROPHILS 5.5 thou/uL (1.4-8.2); BASOPHILS 0.8 % (0.0-2.0); HEMATOCRIT 34.1 % (37.0-47.0); HEMOGLOBIN 10.8 gm/dL (12.0-15.0); LYMPHOCYTES 10.6 % (24.0-44.0); MCH 32.9 pg (26.0-34.0); MCHC 31.6 g/dL (28.0-37.0); MCV 103.9 fL (80.0-100.0); MONOCYTES 9.3 % (1.0-8.0); PLATELET COUNT 147 thou/uL (150-400); POLYS 78.3 % (36.0-66.0); RBC 3.28 mil/uL (4.20-5.00)
[2019-12-29 19:10] LABS: CALCIUM 7.5 mg/dL (8.5-10.1); CREATININE 6.1 mg/dL (0.6-1.0); POTASSIUM 3.6 mmol/L (3.5-5.1)
[2019-12-29 19:16] LABS: ALBUMIN 2.1 g/dL (3.4-5.0); TOTAL BILIRUBIN 0.2 mg/dL (0.2-1.0); TOTAL PROTEIN 6.2 g/dL (6.4-8.2)
[2019-12-29] MEDS ORDERED: CIPRO250 M2 PO (20:12)
[2019-12-29 20:47] VITALS: BP 90/45
== END 2019-12-29 20:48 | disposition home or self-care (01) ==
LOC: ER 16:56
PROVIDERS: Physician Assistant
DX: L03.311 Cellulitis of abdominal wall (principal); I50.9 Heart failure, unspecified; N18.6 End stage renal disease; F32.9 Major depressive disorder, single episode, unspecified; F41.9 Anxiety disorder, unspecified; Z90.89 Acquired absence of other organs; Z90.49 Acquired absence of other specified parts of digestive tract; Z98.84 Bariatric surgery status; Z87.442 Personal history of urinary calculi; Z99.2 Dependence on renal dialysis; Z79.899 Other long term (current) drug therapy; Z79.82 Long term (current) use of aspirin; Z91.041 Radiographic dye allergy status; Z88.8 Allergy status to other drugs, medicaments and biological substances; Z88.7 Allergy status to serum and vaccine; Z88.0 Allergy status to penicillin

== ENCOUNTER → 2020-01-12 | Outpatient (CLI) | payer OTHER, BC ==
[~2020-01-12] MED LIST changes: +CIPRO250 M2 PO
== END ==
LOC: ULTRA 07:54
PROVIDERS: ATTEND Internal Medicine
DX: K76.0 Fatty (change of) liver, not elsewhere classified (principal); N20.0 Calculus of kidney; N28.89 Other specified disorders of kidney and ureter; Z90.49 Acquired absence of other specified parts of digestive tract

== ENCOUNTER → 2020-02-02 | Outpatient (CLI) | payer OTHER, BC ==
[~2020-02-02] MED LIST changes: +FLORANEX TABLE1 EACH PO; +PERCOCET PO
== END ==
LOC: LAB 13:37
PROVIDERS: ATTEND Surgery
DX: Z01.812 Encounter for preprocedural laboratory examination (principal); Z20.828 Contact with and (suspected) exposure to other viral communicable diseases

== ENCOUNTER 2020-02-07 11:01 | Day surgery (SDC) | payer OTHER, BC ==
[~2020-02-07] VITALS: Ht 152.4 cm; Wt 98.4 kg
--- NOTE | ~2020-02-07 | O ---
[facility] [place] [address] OPERATIVE REPORT Name: EDGARDO PEDRZAA Room #: DEP [facility].#: [id number] Admission: 02/07/20 Attend Phys: Mingo Grajeda MD Discharge: 02/07/20 Date of : 53 Report #: [id number] THIS REPORT FOR: cc: Sonido Miranda MD,Mingo Pereyra MD, MD ~ CC: Devyn Grajeda DATE OF SERVICE: 02/07/2020 PREOPERATIVE DIAGNOSES: 1. Large left lower quadrant inflammatory mass with superficial skin necrosis. 2. Left lateral abdominal wall inflammatory mass. 3. Right buttock inflammatory mass. POSTOPERATIVE DIAGNOSES: 1. Large left lower quadrant inflammatory mass with superficial skin necrosis. 2. Left lateral abdominal wall inflammatory mass. 3. Right buttock inflammatory mass. PROCEDURE PERFORMED: Excision of large left lower quadrant mass and left abdominal mass and right buttock mass. ANESTHESIA: General. SURGEON: Mingo Grajeda MD COMPLICATIONS: None. ESTIMATED BLOOD LOSS: 70 mL. PROCEDURE NOTE: The patient has a large mass in the left lower quadrant. This measures about a 15 cm x 8 cm. This has an area of skin necrosis and this has gotten progressively larger and the skin also is ulcerated versus couple of weeks ago where this was not where the necrosis and the enlarging size was not present. The abdomen was prepped and draped in sterile fashion. A marking pen was to draw the ellipse of both masses in the left abdomen. The large mass was then excised. This was down through the subcutaneous tissue to the fascia. I did have to excise quite a bit of skin over this because there is skin involvement. Cautery was used to obtain hemostasis. There are large dilated veins that were clamped and suture ligated with 3-0 Vicryl suture ligature. The subcutaneous tissue was then reapproximated using 2-0 PDS and then more superficially 3-0 PDS. Skin was closed with staple. A slight tension is along the mid part of the incision. [address] [address] OPERATIVE REPORT Name: EDGARDO PEDRAZA Room #: DEP [facility] M.R.#: [id number] Admission: 02/07/20 Attend Phys: Mingo Grajeda MD Discharge: 02/07/20 Date of : 53 Report #: [id number] The lateral mass was then excised with an elliptical removal with a portion of skin over it removed. Dissection carried out with cautery and the subcutaneous tissue. The subcutaneous tissue was then reapproximated with 2-0 PDS. Skin closed with skin staple. Both areas were dressed. Both areas, cover with antibiotic ointment, 4 x 4, ABD and tape. The patient was then placed in the left lateral position with the right buttock area exposed. The beanbag was inflated, the pyle into the position. This was then prepped and draped in sterile fashion. The mass here measuring about 4 cm diameter was also removed. This also encompassed a portion of the skin. These masses all thought to be fat necrosis and inflammatory reaction. The subcutaneous tissue was closed with 2-0 PDS. Skin was closed with skin ron. Dressing was then applied. The patient was taken to recovery room in stable condition. By: 2128 2144 Mingo Grajeda MD /nt
--- NOTE | ~2020-02-07 | H ---
[facility] [place] [address] HISTORY AND PHYSICAL Name: EDGARDO PEDRAZA Room #: PRE [facility] M.R.#: [id number] Admission: Attend Phys: Mingo Grajeda MD Discharge: Date of : 53 Report #: [id number] THIS REPORT FOR: cc: Sonido Miranda MD, Christopher B. 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 HISTORY OF PRESENT ILLNESS: The patient is a 64-year-old who has chronic renal failure. She has lost weight about 10 pounds over the last 3 months. She was hospitalized in September for distal small bowel and right colonic inflammation process. The patient developed a lump in the left abdomen. This is a painful area, which is similar to when she had in the right abdomen back in 04/2018, which required excision. The patient has had this lump on the left side for approximately 3 months on and off. She has been treated with antibiotics, but did not make any difference. Ultrasound did not show any definitive problem here, because it is a fatty area, which she has inflammation and fat necrosis. The patient is here to excise this painful mass. She has 2, one is more prominent, one is less prominent and lateral located. PAST MEDICAL HISTORY: Chronic renal failure, on dialysis; morbid obesity; congestive heart failure; anemia; pulmonary hypertension; right heart failure; thyroid nodule; history of small bowel bypass; malabsorption and C. diff colitis in the past. ALLERGIES: THE PATIENT IS ALLERGIC TO IODINE CONTRAST, NSAIDS, TORSEMIDE, CEPHALEXIN, PENICILLIN, TETANUS TOXOID. PAST SURGICAL HISTORY: The patient has had surgery for endometrial cancer, status post chemoradiation, also. Small bowel bypass many years ago. Small bowel resection in the past. FAMILY HISTORY: Father had colon cancer, at age 52. SOCIAL HISTORY: The patient does not smoke. Does not drink. The patient is on dialysis Thursday, Thursday and Thursday. REVIEW OF SYSTEMS: The patient has been declining in her general health status. Unable to walk around very much for the last 3 months. She was hospitalized in September for ____ protracted recovery. The patient has incisional hernia with bowel in it, but no obstruction. [address] [address] HISTORY AND PHYSICAL Name: EDGARDO PEDRAZA Room #: PRE [facility] M.R.#: [id number] Admission: Attend Phys: Mingo Grajeda MD Discharge: Date of : 53 Report #: [id number] PHYSICAL EXAMINATION: GENERAL: The patient is an elderly female. She is ____. HEENT: Pupils reactive to light. Extraocular muscles intact. NECK: No masses, no JVD. LUNGS: Clear to auscultation. HEART: Regular rate and rhythm. No murmur or gallop. ABDOMEN: Multiple abdominal incision identified. The patient has a small incisional hernia midline inferiorly. She has a thickened area slightly red, tender in the left lower quadrant measuring about an inch and half by about 4 inches lateral. There is another thickened area measuring about a 1 x 3 inches. Both of these areas are tender to palpation. EXTREMITIES: The patient does have some edema present. IMPRESSION: The patient with a painful mass in the left abdomen. This was originally thought to be panniculitis. This has been a progressive problem, likely is panniculitis with fat necrosis. Her previous pathology did show right-sided inflammation with fat necrosis, ____ degeneration and dystrophic calcification. The patient is here to excise this painful area x 2. The patient understands the procedure. The patient did have a wound healing issue, but it eventually did heal up. This can be expected also in the left side. The patient understands the risk of the likelihood of wound difficulty. She wishes to proceed. By: 54 09 Mingo Grajeda MD /nt
[~2020-02-07 11:01] MED LIST changes: -PERCOCET PO
[2020-02-07 11:25] VITALS: BP 116/56
[2020-02-07 11:35] LABS: HEMATOCRIT 37.1 % (37.0-47.0); HEMOGLOBIN 11.5 gm/dL (12.0-15.0); MCH 30.1 pg (26.0-34.0); MCHC 30.9 g/dL (28.0-37.0); MCV 97.7 fL (80.0-100.0); RBC 3.8 mil/uL (4.20-5.00); RDW 18.7 % (10.5-14.5); WBC 9.9 thou/uL (4.0-11.0)
[2020-02-07 11:46] LABS: CREATININE 6.8 mg/dL (0.6-1.0); POTASSIUM 4.1 mmol/L (3.5-5.1)
[2020-02-07 11:52] LABS: ALBUMIN 2.4 g/dL (3.4-5.0); TOTAL BILIRUBIN 0.4 mg/dL (0.2-1.0); TOTAL PROTEIN 7.1 g/dL (6.4-8.2)
[2020-02-07] MEDS ORDERED: PERCOCET PO (15:33)
[2020-02-07 15:44] VITALS: BP 116/56
[2020-02-07 15:45] VITALS: BP 116/56
--- NOTE | 2020-02-15 15:07 | PATH ---
[facility] [place] [address] PATHOLOGY RPT PROCEDURE Name: EDGARDO PEDRAZA Room #: DEP [facility]..#: [id number] Admission: 02/07/20 Date of : 53 Discharge: 02/07/20 Report #: [id number] Path Case #: [id number] [facility] Accession Number: [id number] . 01 Material submitted: . PART A: abdomen - LEFT ABDOMEN MASS. Modifiers: left PART B: abdomen - LATERAL ABDOMEN MASS. Modifiers: lateral PART C: sacrum - RIGHT SACRAL MASS. Modifiers: right . 01 Clinical history: . DR LANDA OPENED THE LEFT ABDOMINAL MASS WITH BLADE AND CULTUREED IT ABDOMINAL WALL MASS . 02 Diagnosis: A. Left abdomen, excision: - Subcutis with extensive fat necrosis and associated dystrophic calcifications. - Skin with ulcer and associated necrosis. - Focal calcification of medium sized vessels. - A GMS fungal stain, a PAS fungal stain, and an iron stain are negative (blocks A1; appropriate control). - See comment. . B. Lateral abdomen, excision: - Subcutis with extensive fat necrosis and associated calcifications. - See comment. . C. Right sacrum, excision: - Subcutis with extensive fat necrosis and associated dystrophic calcifications. - Skin with ulcer and associated necrosis. - See comment. LBQ 02/15/2020 1417 Local . 02 Comment: The patient's history of renal disease and obesity is noted. Given the clinical history and histologic findings, the diagnosis of calciphylaxis is of prime consideration. Also to be considered in the differential would be Monckeberg's sclerosis. Clinical correlation is recommended. . The case findings are discussed with Dr. Landa on 02/15/2020 at 11:[address] oP Mcclendon. . Dr. Saul co-review . (MAP/db; 02/15/20) . [address] [place] [address] PATHOLOGY RPT PROCEDURE Name: EDGARDO PEDRAZA [facility] [id number] Admission: 02/07/20 Date of : 53 Discharge: 02/07/20 Report #: [id number] Path Case #: [id number] Electronically signed: . Po Mcclendon MD, Pathologist NPI- [id number] . 01 Gross description: . A. The specimen is received in formalin, labeled "Edgardo Pedraza, left abdomen mass". Received are two excisions of pale bang to light bang, wrinkled skin with attached underlying fibroadipose tissue measuring 14.8 x 9.5 x 6.0 cm in aggregate dimensions. Sectioning reveals bright yellow, lobulated to dusky pink-espino to espino-brown, necrotic-appearing cut surfaces. The specimen is submitted representatively in cassettes A1 and A2. . B. The specimen is received in formalin, labeled "Edgardo Coylemier, lateral abdomen mass". Received is an ellipse of pale bang, grossly remarkable skin with attached underlying fibroadipose tissue measuring 6.3 x 2.8 x 2.7 cm in greatest dimensions. Sectioning reveals bright yellow, lobulated cut surfaces with a slight amount of fat necrosis identified. The specimen is submitted representatively in cassette B1. . C. The specimen is received in formalin, labeled "Edgardo Coylemier, right sacral mass". Received is no ellipse of pale bang to dusky espino-brown skin with attached underlying fibroadipose tissue measuring 5.8 x 4.1 x 3.2 cm in greatest dimensions. Sectioning reveals bright yellow, lobulated to red-brown, necrotic cut surfaces. The specimen is submitted representatively in cassette C1. (CAA; 02/08/2020) QA/QAC 02/08/2020 1555 Local . 02 Pathologist provided ICD-10: I96, L98.499 . 02 CPT . 416626, 355615, 319718, 808911, 441317, 370636 Specimen Comment: A courtesy copy of this report has been sent to [phone], [phone] Specimen Comment: [id number] Specimen Comment: Report sent to / DR YEUNG Performed at: [address], [place], [place] [id number] MD Sohan Saldivar MD Phone: [phone] Performed at: [address] [id number] MD Aury Saul MD Phone: [phone]
== END 2020-02-07 16:40 | disposition home or self-care (01) ==
LOC: OR 11:01 → TBA 11:06 → OR 16:40
PROVIDERS: ATTEND Surgery
DX: K65.4 Sclerosing mesenteritis (principal); I96 Gangrene, not elsewhere classified; L98.499 Non-pressure chronic ulcer of skin of other sites with unspecified severity; M79.3 Panniculitis, unspecified; N18.6 End stage renal disease; I50.9 Heart failure, unspecified; Z99.2 Dependence on renal dialysis; D64.9 Anemia, unspecified; E66.01 Morbid (severe) obesity due to excess calories; Z98.890 Other specified postprocedural states; Z79.899 Other long term (current) drug therapy; Z80.0 Family history of malignant neoplasm of digestive organs; Z85.42 Personal history of malignant neoplasm of other parts of uterus
CPT/HCPCS: 50010; 50101; 50386; 50417; 51412; 56524; 56525; 56527; 62110; 62900; 70005

== ENCOUNTER 2020-02-28 13:23 | Inpatient (IN) | payer OTHER, BC ==
[~2020-02-28] VITALS: Ht 152.4 cm; Wt 99.3 kg
[~2020-02-28 13:23] MED LIST changes: +PERCOCET PO
[2020-02-28 13:26] VITALS: BP 100/51
[2020-02-28 14:51] LABS: ABSOLUTE NEUTROPHILS 11.5 thou/uL (1.4-8.2); BASOPHILS 0.6 % (0.0-2.0); EOSINOPHILS 0.5 % (0.0-3.0); HEMOGLOBIN 10.7 gm/dL (12.0-15.0); LYMPHOCYTES 3.8 % (24.0-44.0); MCH 29.8 pg (26.0-34.0); MCHC 30.7 g/dL (28.0-37.0); MCV 97.1 fL (80.0-100.0); MONOCYTES 5.9 % (1.0-8.0); PLATELET COUNT 160 thou/uL (150-400); POLYS 89.2 % (36.0-66.0); RDW 19.2 % (10.5-14.5); WBC 12.9 thou/uL (4.0-11.0)
[2020-02-28 14:56] LABS: CALCIUM 8.6 mg/dL (8.5-10.1); CREATININE 5.5 mg/dL (0.6-1.0); POTASSIUM 4.4 mmol/L (3.5-5.1)
[2020-02-28 15:02] LABS: ALBUMIN 2.4 g/dL (3.4-5.0); TOTAL BILIRUBIN 0.3 mg/dL (0.2-1.0); TOTAL PROTEIN 6.9 g/dL (6.4-8.2)
[2020-02-28 16:07] LABS: ANISOCYTOSIS 2+; PLATELET ESTIMATE NORMAL
[2020-02-28 17:38] VITALS: BP 90/45
[2020-02-28 20:40] VITALS: BP 88/45
--- NOTE | 2020-02-28 23:24 | NUR ---
ADMITTED TO THE UNIT AT APPROXIMATELY 1900. PT IS A/O X4 AND UP WITH ASSIST TO THE BSC. C/O PAIN. PRN TYLENOL GIVEN. MEDICATIONS GIVEN PER AUG. ABDOMEN INCISION LINE WITH CHANTAL INTACT AND APPROXIMATED WELL. DRESSINGS C/D/I TO RIGHT LOWER POSTERIOR BACK. NO C/O AT THIS TIME. PT IS LYING IN HER BED AND APPEARS TO BE SLEEPING. FALL PRECAUTIONS ARE IN PLACE, CALL LIGHT IS WITHIN REACH. WILL CONTINUE TO MONITOR.
[2020-02-29 04:48] VITALS: BP 86/47
[2020-02-29 06:03] LABS: HEMATOCRIT 32.2 % (37.0-47.0); HEMOGLOBIN 9.9 gm/dL (12.0-15.0); MCHC 30.8 g/dL (28.0-37.0); MCV 97.4 fL (80.0-100.0); RBC 3.31 mil/uL (4.20-5.00); RDW 18.6 % (10.5-14.5); WBC 10.2 thou/uL (4.0-11.0)
--- NOTE | 2020-02-29 14:47 | NUR ---
PT ADMITTED RELATED TO BLOODY STOOLS. CM REVIEWED CHART AND SPOKE WITH CARE TEAM. CM CALLED AND SPOKE WITH PT THIS MORNING. PT APPEARED TO BE A&O X4. CM ROLE INTRODUCED. PT INDICATED SHE LIVES IN A HOUSE WITH A ROOMMATE WITH A RAMP TO ENTER AND NO STEPS INSIDE. PT INDICATED SHE HAS A CANE, SCOOTER, FWW, 4WW. PT GOES TO [facility] [place] 11:00 CHAIR TIME AND SHE USES [facility]. PT INDICATED SHE HAD [facility] IN THE PAST. PT INDICATED SHE PLANS TO RETURN HOME ONCE MEDICALLY STABLE. CM TO FOLLOW INDICATED WITH DC PLANNING.
[2020-02-29 18:31] VITALS: BP 88/50
[2020-02-29 19:06] VITALS: BP 85/43
--- NOTE | 2020-02-29 19:20 | NUR ---
ASSUMED CARE OF PATIENT AT SHIFT CHANGE. ASSESSMENT CHARTED. MEDS GIVEN PER AUG. PATIENT WAS NEWLY ADMITTED AND HAD VARIOUS CONSULTS. RECIEVED DIALYSIS TODAY AFTER BREAKFAST, SPOKE TO GI NOW REGULAR DIET BUT VOICES "GURGLY STOMACH" AND NAUSEA. PRN BP MAINTENENCE MED ADMINISTERED. VOICES PAIN BUT SAYS PRN PAIN MEDS MAKES HER QUEASY. IS CURRENTLY LYING IN BED W EYES CLOSED. VERY TIRED FROM DIALYIS. REPORT GIVEN TO KENNY RN
--- NOTE | 2020-03-01 03:43 | NUR ---
patient aox4 makes needs known. patient needs minimum assistance with adl, bed mobility, transfer and toileting. patient had small bowel movement green in color. patient has abd and rt hip dressing c/d/i. left foot dressing is c/d/i. patient uses a bedside commode.patient had pericare and barrier cream applied as needed. patient had dialysis and tolerated well. fall precaution in place. patient in bed asleep at this time breathing regular and unlaboured.
[2020-03-01 05:30] VITALS: BP 109/57
[2020-03-01 05:56] LABS: HEMATOCRIT 29.6 % (37.0-47.0); HEMOGLOBIN 9.2 gm/dL (12.0-15.0); MCH 29.5 pg (26.0-34.0); MCV 95.1 fL (80.0-100.0); RBC 3.11 mil/uL (4.20-5.00); RDW 18.7 % (10.5-14.5); WBC 11.7 thou/uL (4.0-11.0)
[2020-03-01 07:02] VITALS: BP 81/51
--- NOTE | 2020-03-01 14:35 | NUR ---
CARE TEAM INDICATED THAT PT HAD CDIFF AND THAT SHE WILL NEED TO CONTINUE WITH CURRENT COURSE OF CARE FOR A FEW DAYS. CLINICAL INFO TO BE SENT TO VICKI ASHLEY CM FOLLOWING REGARDING DC PLANNING.
[2020-03-01 14:50] VITALS: BP 75/38
--- NOTE | 2020-03-01 18:32 | HC ---
[facility] [place] [address] CONSULTATION Name: EDGARDO PEDRAZA Room #: 455-P ADM IN M.R.#: [id number] Admission: 02/28/20 Attend Phys: Thierno Downey Discharge: Date of : 53 Report #: [id number] THIS REPORT FOR: cc: Sonido Miranda MD,Sonido Magaña,Nataliya Temple MD ~ CC: Nataliya Downey REASON FOR CONSULTATION: End-stage renal disease. REASON FOR PRESENTATION: Hematochezia. HISTORY OF PRESENT ILLNESS: This is a very well-known patient to me. She is in end-stage renal disease, was maintained on dialysis every Thursday, Thursday and Thursday. She is known to have chronic hypotension. She has had repeated issues with her gastrointestinal tract in the past. She has had episodes of GI bleeding, C. diff in the past. It was also thought in the past that the patient had an episode of ischemic colitis. She dialyzes as stated above every Thursday, Thursday and Thursday. She presented yesterday with hematochezia and was found to have abnormal CT scan, was admitted for further evaluation and management. It looks like that the patient had a procedure done on the early part of February by Dr. Grajeda for what she describes as an abscess on her abdominal wall, on her back. Pathology was very concerning for calciphylaxis. PAST MEDICAL HISTORY: 1. Diabetes mellitus, culminating into end-stage renal disease. 2. Chronic hypertension. 3. Gastric bypass surgery in 1973. 4. Endometrial carcinoma, status post total abdominal hysterectomy and bilateral salpingo-oophorectomy. 5. Remote history of ischemic colitis. 6. Kidney stones. 7. Remote history of gastrointestinal bleeding. 8. Clostridium difficile. 9. AV fistula. MEDICATIONS: 1. Midodrine. 2. Aspirin. 3. Oxycodone. ALLERGIES: Listed numerous including IODINATED CONTRAST and NSAIDs. See others in the allergy sections. [facility] [address] [place] [address] CONSULTATION Name: EDGARDO KATE Donovan Room #: 455-P [facility] IN ..#: [id number] Admission: 02/28/20 Attend Phys: Thierno Downey Discharge: Date of : 53 Report #: [id number] SOCIAL HISTORY: Denies drug or alcohol abuse. Lives independently. REVIEW OF SYSTEMS: GENERAL: No fever or chills. CARDIOVASCULAR: No chest pain or palpitation. PULMONARY: No cough or hemoptysis. GASTROINTESTINAL: As per the history of present illness. SKIN: As per the history of present illness. PHYSICAL EXAMINATION: VITAL SIGNS: Blood pressure is 86/47, respiratory rate is 16, pulse rate is 90, temperature 36. HEAD AND NECK: No jugular venous distention. CHEST: No crackles. CARDIOVASCULAR: No rub detected. ABDOMEN: Lower abdominal wall incision, soft, nontender. LOWER EXTREMITIES: No edema. Dressing applied over the left ankle. Dressing applied over the right ischial area. LABORATORY DATA: Reviewed. White blood cell count 10.2, hemoglobin 9.5, platelet is 138. Sodium is 139, BUN is 28, creatinine is 5.5. ASSESSMENT AND PLAN: 1. End-stage renal disease, hemodialysis today. 2. 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 3. Hematochezia. GI consultation. 4. Alarming CT finding that will need to be addressed to rule out a malignant process. 5. Watch hemoglobin. 6. Resume her midodrine for her hypertension. 7. Discontinue IV fluid. <ELECTRONICALLY SIGNED> By: Nataliya Magaña MD 03/01/20 1832 [id number] [id number] Nataliya Magaña MD /nt
--- NOTE | 2020-03-01 19:54 | NUR ---
ASSUMED CARE OF PATIENT AT SHIFT CHANGE. ASSESSMENT CHARTED. BP LOW D/T DIALYSIS. PATIENT IS A&OX4. REFUSED ASPRIN D/T COLITIS. REFUSED MIDODRINE; VOICES "I ONLY TAKE IT ONCE IN THE MORNING ON THE DAYS I DON'T HAVE DIALYSIS...OR THE AFTERNOON IF I FORGET". REFUSED FLAGYL D/T STOMACH UPSET. C/O NAUSEA NOT RELIEVED BY ZOFRAN. PROVIDER NOTIFIED. PATIENT UP SBA TO BSC. WOUND SITES C/D/I; AWAITING WC ORDERS. LIES IN BED MOST OF THE DAY AND PREFERS TO BE SUPINE; REPOSITIONS SELF. FALL PRECAUTIONS IN PLACE; MAKES NEEDS KNOWN. WILL CONTINUE TO MONITOR
[2020-03-01 20:25] VITALS: BP 91/48
--- NOTE | 2020-03-02 05:11 | NUR ---
Pt. rested quietly during the night when checked on during frequent rounds. She offers no c/o pain or discomfort. Up to the commode with assistance. No reports of any loose stools.
[2020-03-02 05:57] LABS: CALCIUM 8.1 mg/dL (8.5-10.1); POTASSIUM 3.7 mmol/L (3.5-5.1)
[2020-03-02 06:00] LABS: CREATININE 6.7 mg/dL (0.6-1.0)
[2020-03-02 09:14] VITALS: BP 91/48
--- NOTE | 2020-03-02 11:59 | NUR ---
ATTEMPTED TO CALL REPORT X3; TOLD LIGHTING DESIGNER THAT I WOULD LEAVE A CALL BACK # FOR ANY QUESTIONS.
--- NOTE | 2020-03-02 14:58 | NUR ---
ASSUMED PATIENT CARE THIS AM. ASSESSMENT CHARTED. MEDICATION GIVEN PER AUG. VSS THIS MORNING; CHRONIC HYPOTENSION D/T DIALYSIS. PATIENT REQUESTED FIBERCON A SUPPLEMENTARY PRN TO FURTHER STABLEIZE HER STOOLS. PATIENT NO LONGER HAS LOOSE STOOLS. RECIEVING DIALYSIS TODAY. WILL BE COMPLETE AT APPROX 1700. APPETITE ADEQUATE; CONTINUES TO VOICE NAUSEA. FRIEND AT BEDSIDE. SINCE ADMISSION, SURGEON HAS BEEN ATTEMPTED TO BE REACHED. PATIENT NEEDS TO HAVE CHANTAL REMOVED AND WOUND CARE DRESSED; SURGEON CONSULTED 03/01; PAGED TODAY. HOSPITALIST NOTIFIED AND INFORMED THIS NURSE TO PAGE THE ONLINE MERCHANDISING COORDINATOR SURGEON-CANNOT SEE THIS PATIENT. DR. LANDA IS REMOVING CHANTAL AT THIS TIME. FALL PRECAUTIONS IN PLACE. VOICES NO OTHER NEEDS; PLAN IS TO DISCHARGE BACK HOME AFTER TREATMENT TEAM JIGAR. WILL CONTINUE TO MONITOR
--- NOTE | 2020-03-02 16:37 | NUR ---
IF PT IS MEDICALLY STABLE TO DC HOME THIS WEEKEND AND HH IS NEEDED CONTACT [facility] AT FAX ORDERS TO . IF PT NEEDS TRANSPORT HOME CALL [facility] AT . FLOW SHEETS WILL NEED TO BE SENT TO [facility].
[2020-03-02 19:52] VITALS: BP 95/44
--- NOTE | 2020-03-03 05:57 | NUR ---
Pt. rested quetly during the night when checked on during frequent rounds. She offers no c/o pain. Zofran ivp given (see emar) for c/o nausea with some relief noted. No diarrhea.
[2020-03-03 10:25] VITALS: BP 80/41
[2020-03-03 11:37] VITALS: BP 94/48
[2020-03-03 11:40] VITALS: BP 94/48
[2020-03-03] MEDS ORDERED: LOPERAMIDE 2 MG2 M1 PO (11:43)
[2020-03-03] MEDS ORDERED: RENVELA800 MG PO (11:43)
[2020-03-03] MEDS ORDERED: FLAGYL500 M1 PO (11:43)
[2020-03-03] MEDS ORDERED: MIDODRINE HCL 55 M1 PO (11:43)
[2020-03-03] MEDS ORDERED: DOXYCYCLINE HYC50 MG PO (11:43)
[2020-03-03 12:01] VITALS: BP 94/48
--- NOTE | 2020-03-03 12:41 | NUR ---
REVIEWED DISCHARGE WITH PT. CM HAD PUT IN A HOME HEALTH COMPANY BUT PT DENIED WANTING HOME HEALTH AND THE DR DID NOT ORDER IT. SENT DR A MESSAGE ABOUT IT UPDATING HER. PIV WAS DC'D. PT DENIES ANY QUESTIONS. ALL BELONGINGS SENT WITH PT ALONG WITH EDUCATION MATERIALS AND DISCHARGE INSTRUCTIONS
== END 2020-03-03 12:56 | disposition home or self-care (01) | DRG 871 ==
LOC: ER 13:23 → 4W 15:56 → EROBS 15:56 → 4W 19:00
PROVIDERS: Hospitalist; Internal Medicine; Physician Assistant; ADMIT Hospitalist; ATTEND Hospitalist
PROC: 5A1D70Z Performance of Urinary Filtration, Intermittent, Less than 6 Hours Per Day (ICD-10-PCS; principal; 2020-03-02)
DX: A41.9 Sepsis, unspecified organism (principal); N18.6 End stage renal disease; E43 Unspecified severe protein-calorie malnutrition; K92.2 Gastrointestinal hemorrhage, unspecified; I13.2 Hypertensive heart and chronic kidney disease with heart failure and with stage 5 chronic kidney disease, or end stage renal disease; K50.00 Crohn's disease of small intestine without complications; Z68.41 Body mass index [BMI] 40.0-44.9, adult; K52.9 Noninfective gastroenteritis and colitis, unspecified; E83.59 Other disorders of calcium metabolism; I50.9 Heart failure, unspecified; F32.9 Major depressive disorder, single episode, unspecified; F41.9 Anxiety disorder, unspecified; D64.9 Anemia, unspecified; E11.22 Type 2 diabetes mellitus with diabetic chronic kidney disease; E66.9 Obesity, unspecified; I27.20 Pulmonary hypertension, unspecified; Z90.49 Acquired absence of other specified parts of digestive tract; Z85.89 Personal history of malignant neoplasm of other organs and systems; Z90.722 Acquired absence of ovaries, bilateral; Z87.442 Personal history of urinary calculi; Z88.8 Allergy status to other drugs, medicaments and biological substances; Z98.84 Bariatric surgery status; Z88.0 Allergy status to penicillin; Z88.7 Allergy status to serum and vaccine; Z99.2 Dependence on renal dialysis; Z09 Encounter for follow-up examination after completed treatment for conditions other than malignant neoplasm; Z91.041 Radiographic dye allergy status; Z79.82 Long term (current) use of aspirin; Z79.899 Other long term (current) drug therapy; Z90.710 Acquired absence of both cervix and uterus; Z92.21 Personal history of antineoplastic chemotherapy; Z80.0 Family history of malignant neoplasm of digestive organs
CPT/HCPCS: 10040; 32100

== ENCOUNTER → 2020-03-20 | Outpatient (CLI) | payer OTHER, BC ==
[~2020-03-20] MED LIST changes: +DOXYCYCLINE HYC50 MG PO; +RENVELA800 MG PO
== END ==
LOC: HYPER 13:31
PROVIDERS: ATTEND Emergency Medicine
DX: L89.623 Pressure ulcer of left heel, stage 3 (principal); L97.522 Non-pressure chronic ulcer of other part of left foot with fat layer exposed; I73.89 Other specified peripheral vascular diseases; L03.032 Cellulitis of left toe; R60.0 Localized edema; B35.1 Tinea unguium; L60.3 Nail dystrophy; M77.32 Calcaneal spur, left foot; G62.9 Polyneuropathy, unspecified; K21.9 Gastro-esophageal reflux disease without esophagitis; I50.9 Heart failure, unspecified; N18.6 End stage renal disease; M19.90 Unspecified osteoarthritis, unspecified site; F41.9 Anxiety disorder, unspecified; Z86.73 Personal history of transient ischemic attack (TIA), and cerebral infarction without residual deficits; Z99.2 Dependence on renal dialysis; Z90.710 Acquired absence of both cervix and uterus; Z98.84 Bariatric surgery status; Z90.49 Acquired absence of other specified parts of digestive tract

== ENCOUNTER → 2020-03-29 | Outpatient (CLI) | payer OTHER, BC | LOC: HYPER 15:25 | PROVIDERS: ATTEND Emergency Medicine | DX: L89.623 Pressure ulcer of left heel, stage 3 (principal); L97.522 Non-pressure chronic ulcer of other part of left foot with fat layer exposed; L03.032 Cellulitis of left toe; G90.09 Other idiopathic peripheral autonomic neuropathy; I73.89 Other specified peripheral vascular diseases; B35.1 Tinea unguium; L60.3 Nail dystrophy; M77.32 Calcaneal spur, left foot; L84 Corns and callosities; I50.9 Heart failure, unspecified; N18.6 End stage renal disease; K21.9 Gastro-esophageal reflux disease without esophagitis; M19.90 Unspecified osteoarthritis, unspecified site; F41.9 Anxiety disorder, unspecified; Z86.73 Personal history of transient ischemic attack (TIA), and cerebral infarction without residual deficits; Z85.42 Personal history of malignant neoplasm of other parts of uterus; Z99.2 Dependence on renal dialysis ==

== ENCOUNTER → 2020-04-05 | Outpatient (CLI) | payer OTHER, BC | LOC: HYPER 14:53 | PROVIDERS: ATTEND Emergency Medicine | DX: L89.623 Pressure ulcer of left heel, stage 3 (principal); L97.522 Non-pressure chronic ulcer of other part of left foot with fat layer exposed; L03.032 Cellulitis of left toe; L60.3 Nail dystrophy; B35.1 Tinea unguium; E66.01 Morbid (severe) obesity due to excess calories; G90.09 Other idiopathic peripheral autonomic neuropathy; G62.9 Polyneuropathy, unspecified; R60.0 Localized edema; I73.89 Other specified peripheral vascular diseases; I50.9 Heart failure, unspecified; N18.6 End stage renal disease; K21.9 Gastro-esophageal reflux disease without esophagitis; M19.90 Unspecified osteoarthritis, unspecified site; M77.32 Calcaneal spur, left foot; F41.9 Anxiety disorder, unspecified; Z99.2 Dependence on renal dialysis; Z86.73 Personal history of transient ischemic attack (TIA), and cerebral infarction without residual deficits; Z85.42 Personal history of malignant neoplasm of other parts of uterus; Z68.41 Body mass index [BMI] 40.0-44.9, adult ==

== ENCOUNTER → 2020-04-17 | Outpatient (CLI) | payer OTHER, BC | LOC: HYPER 14:55 | PROVIDERS: ATTEND Emergency Medicine | DX: T81.89XA Other complications of procedures, not elsewhere classified, initial encounter (principal); L89.623 Pressure ulcer of left heel, stage 3; L97.522 Non-pressure chronic ulcer of other part of left foot with fat layer exposed; L02.31 Cutaneous abscess of buttock; G90.09 Other idiopathic peripheral autonomic neuropathy; R60.0 Localized edema; L03.032 Cellulitis of left toe; M77.32 Calcaneal spur, left foot; B35.1 Tinea unguium; L60.3 Nail dystrophy; I50.9 Heart failure, unspecified; K21.9 Gastro-esophageal reflux disease without esophagitis; N18.6 End stage renal disease; M19.90 Unspecified osteoarthritis, unspecified site; I73.9 Peripheral vascular disease, unspecified; F41.9 Anxiety disorder, unspecified; Z86.73 Personal history of transient ischemic attack (TIA), and cerebral infarction without residual deficits; Z99.2 Dependence on renal dialysis; Z85.42 Personal history of malignant neoplasm of other parts of uterus; Y83.8 Other surgical procedures as the cause of abnormal reaction of the patient, or of later complication, without mention of misadventure at the time of the procedure; Y92.238 Other place in hospital as the place of occurrence of the external cause ==

== ENCOUNTER → 2020-04-24 | Outpatient (CLI) | payer OTHER, BC | LOC: HYPER 13:56 | PROVIDERS: ATTEND Emergency Medicine | DX: T81.89XD Other complications of procedures, not elsewhere classified, subsequent encounter (principal); L98.412 Non-pressure chronic ulcer of buttock with fat layer exposed; L89.623 Pressure ulcer of left heel, stage 3; L97.522 Non-pressure chronic ulcer of other part of left foot with fat layer exposed; L02.31 Cutaneous abscess of buttock; L03.032 Cellulitis of left toe; L60.3 Nail dystrophy; B35.1 Tinea unguium; E66.01 Morbid (severe) obesity due to excess calories; G90.09 Other idiopathic peripheral autonomic neuropathy; G62.9 Polyneuropathy, unspecified; R60.0 Localized edema; I73.89 Other specified peripheral vascular diseases; I50.9 Heart failure, unspecified; N18.6 End stage renal disease; K21.9 Gastro-esophageal reflux disease without esophagitis; M77.32 Calcaneal spur, left foot; M19.90 Unspecified osteoarthritis, unspecified site; F41.9 Anxiety disorder, unspecified; Z99.2 Dependence on renal dialysis; Z68.41 Body mass index [BMI] 40.0-44.9, adult; Z85.42 Personal history of malignant neoplasm of other parts of uterus; Z86.73 Personal history of transient ischemic attack (TIA), and cerebral infarction without residual deficits ==

== ENCOUNTER → 2020-05-01 | Outpatient (CLI) | payer OTHER, BC | LOC: HYPER 08:17 | PROVIDERS: ATTEND Emergency Medicine | DX: T81.89XD Other complications of procedures, not elsewhere classified, subsequent encounter (principal); L89.623 Pressure ulcer of left heel, stage 3; L98.412 Non-pressure chronic ulcer of buttock with fat layer exposed; L97.522 Non-pressure chronic ulcer of other part of left foot with fat layer exposed; L02.31 Cutaneous abscess of buttock; L84 Corns and callosities; G90.09 Other idiopathic peripheral autonomic neuropathy; R60.0 Localized edema; L03.032 Cellulitis of left toe; M77.32 Calcaneal spur, left foot; I73.89 Other specified peripheral vascular diseases; B35.1 Tinea unguium; L60.3 Nail dystrophy; I50.9 Heart failure, unspecified; N18.6 End stage renal disease; K21.9 Gastro-esophageal reflux disease without esophagitis; M19.90 Unspecified osteoarthritis, unspecified site; E66.01 Morbid (severe) obesity due to excess calories; F41.9 Anxiety disorder, unspecified; Z68.41 Body mass index [BMI] 40.0-44.9, adult; Z86.73 Personal history of transient ischemic attack (TIA), and cerebral infarction without residual deficits; Z85.42 Personal history of malignant neoplasm of other parts of uterus; Z99.2 Dependence on renal dialysis; Y83.8 Other surgical procedures as the cause of abnormal reaction of the patient, or of later complication, without mention of misadventure at the time of the procedure ==

== ENCOUNTER → 2020-05-15 | Outpatient (CLI) | payer OTHER, BC | LOC: HYPER 14:56 | PROVIDERS: ATTEND Emergency Medicine | DX: T81.89XD Other complications of procedures, not elsewhere classified, subsequent encounter (principal); L89.623 Pressure ulcer of left heel, stage 3; L98.412 Non-pressure chronic ulcer of buttock with fat layer exposed; L97.522 Non-pressure chronic ulcer of other part of left foot with fat layer exposed; L02.31 Cutaneous abscess of buttock; L84 Corns and callosities; G90.09 Other idiopathic peripheral autonomic neuropathy; R60.0 Localized edema; L03.032 Cellulitis of left toe; M77.32 Calcaneal spur, left foot; I73.89 Other specified peripheral vascular diseases; B35.1 Tinea unguium; L60.3 Nail dystrophy; I50.9 Heart failure, unspecified; N18.6 End stage renal disease; K21.9 Gastro-esophageal reflux disease without esophagitis; M19.90 Unspecified osteoarthritis, unspecified site; E66.01 Morbid (severe) obesity due to excess calories; F41.9 Anxiety disorder, unspecified; Z68.41 Body mass index [BMI] 40.0-44.9, adult; Z86.73 Personal history of transient ischemic attack (TIA), and cerebral infarction without residual deficits; Z85.42 Personal history of malignant neoplasm of other parts of uterus; Z99.2 Dependence on renal dialysis; Y83.8 Other surgical procedures as the cause of abnormal reaction of the patient, or of later complication, without mention of misadventure at the time of the procedure ==

== ENCOUNTER → 2020-05-22 | Outpatient (CLI) | payer OTHER, BC | LOC: HYPER 15:00 | PROVIDERS: ATTEND Emergency Medicine | DX: T81.89XD Other complications of procedures, not elsewhere classified, subsequent encounter (principal); L89.623 Pressure ulcer of left heel, stage 3; L98.412 Non-pressure chronic ulcer of buttock with fat layer exposed; L97.522 Non-pressure chronic ulcer of other part of left foot with fat layer exposed; L02.31 Cutaneous abscess of buttock; L84 Corns and callosities; G90.09 Other idiopathic peripheral autonomic neuropathy; R60.0 Localized edema; L03.032 Cellulitis of left toe; M77.32 Calcaneal spur, left foot; I73.89 Other specified peripheral vascular diseases; B35.1 Tinea unguium; L60.3 Nail dystrophy; I50.9 Heart failure, unspecified; N18.6 End stage renal disease; K21.9 Gastro-esophageal reflux disease without esophagitis; M19.90 Unspecified osteoarthritis, unspecified site; E66.01 Morbid (severe) obesity due to excess calories; F41.9 Anxiety disorder, unspecified; Z68.41 Body mass index [BMI] 40.0-44.9, adult; Z86.73 Personal history of transient ischemic attack (TIA), and cerebral infarction without residual deficits; Z85.42 Personal history of malignant neoplasm of other parts of uterus; Z99.2 Dependence on renal dialysis; Y83.8 Other surgical procedures as the cause of abnormal reaction of the patient, or of later complication, without mention of misadventure at the time of the procedure ==

== ENCOUNTER → 2020-06-19 | Outpatient (CLI) | payer OTHER, BC | LOC: HYPER 15:27 | PROVIDERS: ATTEND Emergency Medicine | DX: T81.89XD Other complications of procedures, not elsewhere classified, subsequent encounter (principal); L89.623 Pressure ulcer of left heel, stage 3; L98.412 Non-pressure chronic ulcer of buttock with fat layer exposed; L97.522 Non-pressure chronic ulcer of other part of left foot with fat layer exposed; L02.31 Cutaneous abscess of buttock; L84 Corns and callosities; L03.032 Cellulitis of left toe; L60.3 Nail dystrophy; M86.372 Chronic multifocal osteomyelitis, left ankle and foot; R60.0 Localized edema; B35.1 Tinea unguium; G90.09 Other idiopathic peripheral autonomic neuropathy; I73.89 Other specified peripheral vascular diseases; E66.01 Morbid (severe) obesity due to excess calories; I50.9 Heart failure, unspecified; N18.6 End stage renal disease; K21.9 Gastro-esophageal reflux disease without esophagitis; M77.32 Calcaneal spur, left foot; M19.90 Unspecified osteoarthritis, unspecified site; F41.9 Anxiety disorder, unspecified; Z68.41 Body mass index [BMI] 40.0-44.9, adult; Z86.73 Personal history of transient ischemic attack (TIA), and cerebral infarction without residual deficits; Z85.42 Personal history of malignant neoplasm of other parts of uterus; Z99.2 Dependence on renal dialysis; Y83.8 Other surgical procedures as the cause of abnormal reaction of the patient, or of later complication, without mention of misadventure at the time of the procedure ==

== ENCOUNTER → 2020-07-05 | Outpatient (CLI) | payer OTHER, BC | LOC: HYPER 15:02 | PROVIDERS: ATTEND Emergency Medicine | DX: T81.89XD Other complications of procedures, not elsewhere classified, subsequent encounter (principal); L89.623 Pressure ulcer of left heel, stage 3; L98.412 Non-pressure chronic ulcer of buttock with fat layer exposed; L02.31 Cutaneous abscess of buttock; L03.032 Cellulitis of left toe; L60.3 Nail dystrophy; M86.372 Chronic multifocal osteomyelitis, left ankle and foot; R60.0 Localized edema; B35.1 Tinea unguium; G90.09 Other idiopathic peripheral autonomic neuropathy; I73.89 Other specified peripheral vascular diseases; E66.01 Morbid (severe) obesity due to excess calories; I50.9 Heart failure, unspecified; N18.6 End stage renal disease; K21.9 Gastro-esophageal reflux disease without esophagitis; M77.32 Calcaneal spur, left foot; M19.90 Unspecified osteoarthritis, unspecified site; F41.9 Anxiety disorder, unspecified; Z68.41 Body mass index [BMI] 40.0-44.9, adult; Z86.73 Personal history of transient ischemic attack (TIA), and cerebral infarction without residual deficits; Z85.42 Personal history of malignant neoplasm of other parts of uterus; Z99.2 Dependence on renal dialysis; Y83.8 Other surgical procedures as the cause of abnormal reaction of the patient, or of later complication, without mention of misadventure at the time of the procedure ==

== ENCOUNTER → 2020-07-19 | Outpatient (CLI) | payer OTHER, BC | LOC: HYPER 15:22 | PROVIDERS: ATTEND Emergency Medicine | DX: T81.89XD Other complications of procedures, not elsewhere classified, subsequent encounter (principal); L89.623 Pressure ulcer of left heel, stage 3; L98.412 Non-pressure chronic ulcer of buttock with fat layer exposed; L02.31 Cutaneous abscess of buttock; L03.032 Cellulitis of left toe; L60.3 Nail dystrophy; M86.372 Chronic multifocal osteomyelitis, left ankle and foot; R60.0 Localized edema; B35.1 Tinea unguium; G90.09 Other idiopathic peripheral autonomic neuropathy; I73.89 Other specified peripheral vascular diseases; E66.01 Morbid (severe) obesity due to excess calories; I50.9 Heart failure, unspecified; N18.6 End stage renal disease; K21.9 Gastro-esophageal reflux disease without esophagitis; M77.32 Calcaneal spur, left foot; M19.90 Unspecified osteoarthritis, unspecified site; F41.9 Anxiety disorder, unspecified; Z68.41 Body mass index [BMI] 40.0-44.9, adult; Z86.73 Personal history of transient ischemic attack (TIA), and cerebral infarction without residual deficits; Z85.42 Personal history of malignant neoplasm of other parts of uterus; Z99.2 Dependence on renal dialysis; Y83.8 Other surgical procedures as the cause of abnormal reaction of the patient, or of later complication, without mention of misadventure at the time of the procedure ==

== ENCOUNTER → 2020-07-26 | Outpatient (CLI) | payer OTHER, BC | LOC: SJCVCIMAG 15:17 | PROVIDERS: ATTEND Internal Medicine Cardiovascular Disease | DX: I70.201 Unspecified atherosclerosis of native arteries of extremities, right leg (principal); M79.605 Pain in left leg; L98.499 Non-pressure chronic ulcer of skin of other sites with unspecified severity; Z79.899 Other long term (current) drug therapy ==

== ENCOUNTER → 2020-07-26 | Outpatient (CLI) | payer OTHER, BC | LOC: CAT 07-24 11:34 | PROVIDERS: ATTEND Internal Medicine | DX: N18.6 End stage renal disease (principal); R19.00 Intra-abdominal and pelvic swelling, mass and lump, unspecified site; I51.7 Cardiomegaly; I25.10 Atherosclerotic heart disease of native coronary artery without angina pectoris ==

== ENCOUNTER → 2020-08-02 | Outpatient (CLI) | payer OTHER, BC | LOC: HYPER 15:40 | PROVIDERS: ATTEND Emergency Medicine | DX: T81.89XD Other complications of procedures, not elsewhere classified, subsequent encounter (principal); L89.623 Pressure ulcer of left heel, stage 3; L98.412 Non-pressure chronic ulcer of buttock with fat layer exposed; L02.31 Cutaneous abscess of buttock; L03.032 Cellulitis of left toe; L60.3 Nail dystrophy; M86.372 Chronic multifocal osteomyelitis, left ankle and foot; R60.0 Localized edema; B35.1 Tinea unguium; G90.09 Other idiopathic peripheral autonomic neuropathy; I73.89 Other specified peripheral vascular diseases; E66.01 Morbid (severe) obesity due to excess calories; I50.9 Heart failure, unspecified; N18.6 End stage renal disease; K21.9 Gastro-esophageal reflux disease without esophagitis; M77.32 Calcaneal spur, left foot; M19.90 Unspecified osteoarthritis, unspecified site; F41.9 Anxiety disorder, unspecified; Z68.41 Body mass index [BMI] 40.0-44.9, adult; Z86.73 Personal history of transient ischemic attack (TIA), and cerebral infarction without residual deficits; Z85.42 Personal history of malignant neoplasm of other parts of uterus; Z99.2 Dependence on renal dialysis; Y83.8 Other surgical procedures as the cause of abnormal reaction of the patient, or of later complication, without mention of misadventure at the time of the procedure ==

== ENCOUNTER 2020-11-19 14:56 | Inpatient (IN) | payer OTHER, BC ==
[~2020-11-19] VITALS: Ht 152.4 cm; Wt 85.3 kg
--- NOTE | ~2020-11-19 | HC ---
[facility] [place] [address] CONSULTATION Name: EDGARDO PEDRAZA Room #: 358-P ADM IN M.R.#: [id number] Admission: 11/19/20 Attend Phys: Kiki Dhillon MD Discharge: Date of : 53 Report #: [id number] THIS REPORT FOR: cc: Sonido Miranda MD, Christopher B. MD Al-Absi,Nataliya Temple MD ~ DOC #: [id number] Nataliya Magaña MD REASON FOR CONSULTATION: End-stage renal disease. HISTORY OF PRESENT ILLNESS: A 65-year-old who has been maintained on hemodialysis every Thursday, Thursday and Thursday. The patient was at her Dialysis Unit yesterday. Apparently, the patient developed hypotension; however, she is known to have chronic hypotension. She was also found to have fever. She was sent to have further evaluation and management and en route, she began to have some altered mental status. The patient was recently discharged from [facility] after staying there for an extended period of time. She is known to have calciphylaxis. She is also known to have chronic back pain and lower extremity wounds. The patient was admitted to further evaluate her condition. I was consulted to manage her end-stage renal disease. PAST MEDICAL AND SURGICAL HISTORY: 1. End-stage renal disease, maintained on hemodialysis. 2. History of bilateral salpingo-oophorectomy with endometrial cancer, status post hysterectomy. 3. Calciphylaxis. 4. Recent abdominal wound infection. 5. History of C. diff. 6. Right AV fistula. 7. Tonsillectomy. 8. Cholecystectomy. MEDICATIONS: 1. Midodrine. 2. Renvela. 3. Lorazepam. 4. Aspirin. FAMILY HISTORY: Significant for diabetes mellitus and hypertension. REVIEW OF SYSTEMS: GENERAL: No reported chills, but she had fever. CARDIOVASCULAR: No chest pain or palpitation. PULMONARY: No cough or hemoptysis. GASTROINTESTINAL: No nausea, vomiting. [facility] [address] [place] [address] CONSULTATION Name: EDGARDO PEDRAZA Room #: 358-P [facility] IN .R.#: [id number] Admission: 11/19/20 Attend Phys: Kiki Dhillon MD Discharge: Date of : 53 Report #: [id number] MUSCULOSKELETAL: Occasional myalgias. NEUROLOGIC: She unfortunately does not remember any of ____ yesterday. SOCIAL HISTORY: She resides with her friend. PHYSICAL EXAMINATION: VITAL SIGNS: Temperature is 36.8, blood pressure is 89/39, pulse rate is 80, respiratory rate is 18. HEAD AND NECK: No jugular venous distention, no bruit, no thyromegaly. CHEST: No crackles. CARDIOVASCULAR: No rub. ABDOMEN: Soft, nontender. EXTREMITIES: Lower extremities, no evidence of edema. There are some chronic venous stasis changes. LABORATORY DATA: Hemoglobin 7.4, platelet is 97. Sodium is 139, potassium is 3.9, BUN is 27, creatinine is ____, magnesium is 1.3. IMAGING: Chest x-ray, some mild interstitial prominence. Head CT with no acute process. IMPRESSION, ASSESSMENT AND PLAN: 1. End-stage renal disease. 2. Fever. 3. Abdominal wound. 4. Sacral wound. 5. Chronic hypertension. 6. Arrange for the patient to have her usual hemodialysis tomorrow. 7. Workup for fever has been initiated. Culture results still pending. Primary team is addressing antibiotic accordingly. 8. Resume medications related to her dialysis including her midodrine and binders. Nataliya Magaña MD AIA/CARLOS ALBERTO/KATLYN By: 0814 20 Nataliya Magaña MD /nt
[2020-11-19 14:57] VITALS: BP 94/51
[2020-11-19 15:18] LABS: ABSOLUTE NEUTROPHILS 11.2 thou/uL (1.4-8.2); BASOPHILS 0.1 % (0.0-2.0); HEMATOCRIT 29.7 % (37.0-47.0); HEMOGLOBIN 9.5 gm/dL (12.0-15.0); LYMPHOCYTES 1.3 % (24.0-44.0); MCH 32.3 pg (26.0-34.0); MCHC 31.8 g/dL (28.0-37.0); MCV 101.3 fL (80.0-100.0); MONOCYTES 3.4 % (1.0-8.0); PLATELET COUNT 136 thou/uL (150-400); POLYS 95.2 % (36.0-66.0); RBC 2.93 mil/uL (4.20-5.00); RDW 15.3 % (10.5-14.5); WBC 11.7 thou/uL (4.0-11.0)
[2020-11-19 15:27] LABS: CALCIUM 7.5 mg/dL (8.5-10.1); CREATININE 3.6 mg/dL (0.6-1.0)
[2020-11-19 15:33] LABS: DIRECT BILIRUBIN 0.2 mg/dL (<0.1-0.2); TOTAL BILIRUBIN 0.4 mg/dL (0.2-1.0); TOTAL PROTEIN 6.6 g/dL (6.4-8.2)
[2020-11-19 16:19] LABS: URINE BILIRUBIN NEGATIVE (Negative); URINE BLOOD 2+ (Negative); URINE CLARITY CLOUDY; URINE COLOR YELLOW; URINE GLUCOSE-RANDOM* NEGATIVE (Negative); URINE KETONES NEGATIVE (Negative); URINE LEUKOCYTES-REFLEX 2+ (Negative); URINE NITRITE-REFLEX NEGATIVE (Negative); URINE PROTEIN (DIPSTICK) 3+ (Negative); URINE UROBILINOGEN 0.2 E.U./dl (0.2-1.0)
[2020-11-19 16:20] LABS: CASTS None Seen /LPF (None Seen); CRYSTALS None Seen /LPF (None Seen); SQUAMOUS 0-3 Few /LPF (0-3); URINE RBC 3-10 Few /HPF (NONE SEEN)
--- NOTE | 2020-11-19 17:07 | NUR ---
PT REFUSED FLU SWAB AT THIS TIME. PHYSICIAN NOTIFIED.
[2020-11-19 19:04] VITALS: BP 93/56
[2020-11-19 19:32] VITALS: BP 83/38
[2020-11-19 19:57] VITALS: BP 91/44
[2020-11-19] MEDS ORDERED: HYDROCODON-ACE1 EAC5 PO (20:31)
[2020-11-20 02:49] VITALS: BP 84/43
--- NOTE | 2020-11-20 04:00 | NUR ---
ADMIT PT ADMITTED TO ROOM 358 FROM EMERGENCY ROOM FOR SEPSIS AND WEAKNESS. PT WAS AT DIALYSIS CENTER AND WAS HYPOTENSIVE AND FEBRILE SENT TO ED. WBC 20,000 AND TEMP OF 102. PT A/O X4 UNCOOPERATIVE AT TIMES WITH ADMISSION PROCESS AND CARES. REFUSED SOME LABS, REFUSED FLU SWAB. IV TO LF INFUSING VANCOMCIN. RIHT UPPER ARM WITH DIALYSIS FISTULA WITH GOOD BRUIT AND TRILL. BOTH LOWER EXTREMETIES EDEMATOUS AND RED RIGHT LOWER LEG HAS A COUPLE OF SCABBED OVER AREAS AND ONE AREA THAT IS OPEN PICTURE TAKEN AND COVERED WITH MEPILEX BORDER DRESSING. CONSULTS FOR MESSAGE LEFT WITH ANSWERING SERVICE. CONSULT FOR CALLED, RETURNED CALL TO NOTIFY IN AM. CONSENTS SIGNED BY DPOA. CONTINUE POC.
[2020-11-20 05:34] LABS: ABSOLUTE NEUTROPHILS 5.3 thou/uL (1.4-8.2); BASOPHILS 0.3 % (0.0-2.0); HEMATOCRIT 22.8 % (37.0-47.0); LYMPHOCYTES 2.8 % (24.0-44.0); MCH 33.2 pg (26.0-34.0); MCHC 32.5 g/dL (28.0-37.0); MCV 102.1 fL (80.0-100.0); MONOCYTES 5.5 % (1.0-8.0); PLATELET COUNT 97 thou/uL (150-400); POLYS 91.4 % (36.0-66.0); RBC 2.23 mil/uL (4.20-5.00); RDW 14.9 % (10.5-14.5); WBC 5.8 thou/uL (4.0-11.0)
[2020-11-20 05:41] LABS: CALCIUM 6.9 mg/dL (8.5-10.1); CREATININE 4.2 mg/dL (0.6-1.0); MAGNESIUM 1.3 mg/dL (1.8-2.4); POTASSIUM 3.9 mmol/L (3.5-5.1)
[2020-11-20 05:42] LABS: HEMOGLOBIN 7.4 gm/dL (12.0-15.0)
--- NOTE | 2020-11-20 07:18 | EKG ---
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: JENNY : 1955 Requested By: Donald Carlisle Order Number: [id number] MD: Naif Alvarenga Measurements Intervals [place] Rate: 103 P: 16 [place]: 172 QRS: 226 QRSD: 109 T: -9 QT: 328 QTc: 430 Interpretive Statements Sinus tachycardia Low voltage, precordial leads Probable RVH w/ secondary repol abnormality Compared to ECG 09/24/2019 09:20:22 Sinus rhythm no longer present Atrial premature complex(es) no longer present Poor R-wave progression no longer present Electronically Signed On 11-20-2020 7:17:53 CDT by Naif Alvarenga [email or web address] <ELECTRONICALLY SIGNED> By: Naif Alvarenga MD, FAC 11/20/20 0717 1518 1518 Naif Alvarenga MD, [facility] /EPI
[2020-11-20 07:53] VITALS: BP 89/39
[2020-11-20 09:00] LABS: FOLIC ACID 7.7 ng/mL (8.6-58.9)
[2020-11-20 11:11] VITALS: BP 92/43
--- NOTE | 2020-11-20 12:38 | NUR ---
ASSESSMENT: CM REVIEWED CHART AND SPOKE WITH PT. PT IS ALERT AND ORIENTED X4. PT WAS ADMITTED FROM HER DIALYSIS CLINIC ([facility]) DUE TO FEVER. PT HAS LIKELY SEPSIS/UTI AND WILL LIKELY BE A BPCI PATIENT. PT REPORTS THAT SHE JUST RECENTLY LEFT [facility] ABOUT A WEEK AGO AND REPORTS SHE DID NOT ENJOY THE STAY THERE AND WILL NOT GO BACK. PT REPORTS SHE WAS SENT HOME AND IN SERVICES WITH [facility]. CM NOTIFIED [facility] AT [facility] AND FAXED UPDATED CLINICAL. CM AWAITING TO HEAR BACK FROM [facility] TO WHAT PATIENTS HOME HEALTH ADMITTING DIAGNOSIS WAS. PT REPORTS LIVING WITH A FRIEND (CORBY) IN AN APT. PT REPORTS HAVING A RAMP TO ENTER AND NO STEPS SHE HAS TO USE. PT REPORTS BEING SO WEAK LATELY SHE HAS BEEN USING A WHEELCHAIR BUT ALSO HAS A CANE, SCOOTER, WALKER, GRAB BARS, AND SHOWER CHAIR. CM DISCUSSED WE WILL SEE HOW PT PROGRESSES BUT MAY NEED POST ACUTE VS HH AT DISCHARGE. PT REPORTS SHE IS HOPEFUL TO DISCHARGE WITH [facility] BUT IF NEEDING SNF SHE DOES NOT WANT TO RETURN TO [facility]. ID IS ON THE CASE AND FOLLOW WELL. CM WILL CONTINUE TO FOLLOW TO ASSIST NEEDED.
--- NOTE | 2020-11-20 12:51 | NUR ---
ON SERVICE WITH [facility] UNDER PRIMARY DX HTN AND SECONDARY DX STAGE 3 PRESSURE ULCER.
--- NOTE | 2020-11-20 13:35 | EKG ---
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: CHHAYA : 1955 Requested By: Kiki Dhillon Order Number: [id number] MD: Naif Alvarenga Measurements Intervals [place] Rate: 78 P: 17 [place]: 200 QRS: 216 QRSD: 103 T: -32 QT: 385 QTc: 439 Interpretive Statements Sinus rhythm Inferior infarct, age indeterminate Anterior infarct, age indeterminate Compared to ECG 11/19/2020 15:18:09 Myocardial infarct finding now present Sinus tachycardia no longer present Electronically Signed On 11-20-2020 13:35:32 CDT by Naif Alvarenga [email or web address] <ELECTRONICALLY SIGNED> By: Naif Alvarenga MD, [facility] 11/20/20 1335 1055 1055 Naif Alvarenga MD, [facility] /EPI
--- NOTE | 2020-11-20 15:38 | 2DMMODE ---
[facility] [place] [address] 2 D/M-MODE ECHOCARDIOGRAM Name: EDGARDO PEDRAZA Room #: 358-P ADM IN M.R.#: [id number] Admission: 11/19/20 Attend Phys: Kiki Dhillon MD Discharge: Date of : 53 Report #: [id number] THIS REPORT FOR: cc: Sonido Miranda MD, Christopher B. MD Lammoglia, Francisco J. MD ~ APPROVED REPORT Study performed: 11/20/2020 14:34:06 EXAM: Comprehensive 2D, Doppler, and color-flow Echocardiogram Patient Location: Bedside Room #: 358 Status: routine BSA: 1.79 HR: 74 bpm BP: 92/43 mmHg Rhythm: NSR Other Information Study Quality: Adequate Indications Hypotension, tachy. Hx: Cancer, chemo, CHF, SVT 2D Dimensions RVDd: 38.16 mm IVSd: 11.06 (7-11mm) LVOT Diam: 21.92 (18-24mm) LVDd: 52.05 mm PWd: 10.51 (7-11mm) Ascending Ao: 35.70 (22-36mm) LVDs: 36.98 (25-40mm) Left Atrium: 46.79 (27-40mm) Aortic Root: 35.29 mm Volumes Left Atrial Volume (Systole) Single Plane 4CH: 64.40 mL Single Plane 2CH: 63.82 mL LA ESV Index: 39.00 mL/m2 Aortic Valve AoV Peak Ricardo.: 1.52 m/s AO Peak Gr.: 9.21 mmHg LVOT Max P.87 mmHg LVOT Max V: 1.10 m/s [facility] [address] [place] [address] 2 D/M-MODE ECHOCARDIOGRAM Name: EDGARDO PEDRAZA Room #: 358-[facility]#: [id number] Admission: 11/19/20 Attend Phys: Fernanda Ayon Discharge: Date of : 53 Report #: [id number] MELA Vmax: 2.74 cm2 Mitral Valve E/A Ratio: 1.5 MV Decel. Time: 176.05 ms MV E Max Ricardo.: 1.52 m/s MV A Ricardo.: 0.99 m/s MV PHT: 51.05 ms IVRT: 65.74 ms Pulmonary Valve PV Peak Ricardo.: 0.90 m/s PV Peak Gr.: 3.22 mmHg Pulmonary Vein P Vein S: 0.73 m/s P Vein D: 0.62 m/s P Vein S/D Ratio: 1.18 Tricuspid Valve TR Peak Ricardo.: 3.40 m/s RAP Estimate: 10.00 mmHg TR Peak Gr.: 46.25 mmHg PA Pressure: 56.00 mmHg Left Ventricle The left ventricle is normal size. There is normal LV segmental wall motion. There is normal left ventricular wall thickness. Left ventricular systolic function is normal. LVEF is 55%. Moderate diastolic dysfunction is present. Right Ventricle Right ventricle is mildly dilated. Right ventricle is mildly hypokinetic. Atria Left atrium is moderately dilated. Right atrium is mildly dilated. Aortic Valve The aortic valve is normal in structure. No aortic regurgitation is present. There is no aortic valvular stenosis. Mitral Valve The mitral valve is normal in structure. Trace mitral regurgitation. No evidence of mitral valve stenosis. Tricuspid Valve [facility] [address] [place] [address] 2 D/M-MODE ECHOCARDIOGRAM Name: EDGARDO PEDRAZA Room #: 358-P [facility] IN M.R.#: [id number] Admission: 11/19/20 Attend Phys: Fernanda Ayon Discharge: Date of : 53 Report #: [id number] The tricuspid valve is normal in structure. Mild tricuspid regurgitation. Estimated PAP is 55-60mmHg. Pulmonic Valve The pulmonary valve is normal in structure. Trace pulmonic regurgitation. Great Vessels The aortic root is normal in size. The ascending aorta is normal in size. IVC is dilated and collapses <50% with inspiration. Pericardium There is no pericardial effusion. <Conclusion> The left ventricle is normal size. LVEF is 55%. Right ventricle is mildly dilated. Right ventricle is mildly hypokinetic. Left atrium is moderately dilated. Right atrium is mildly dilated. The aortic valve is normal in structure. The mitral valve is normal in structure. Trace mitral regurgitation. The tricuspid valve is normal in structure. Mild tricuspid regurgitation. Estimated PAP is 55-60mmHg. The pulmonary valve is normal in structure. Trace pulmonic regurgitation. There is no pericardial effusion. <ELECTRONICALLY SIGNED> By: Clem Tomlinson MD 11/20/20 1538 1538 1538 Clem Tomlnison MD /INF
[2020-11-20 16:04] VITALS: BP 91/40
[2020-11-20 16:30] VITALS: BP 97/42
--- NOTE | 2020-11-20 19:47 | NUR ---
RN ASSUMED PT'S CARE AT 0700AM-1900PM, PT IS A&OX4, PT IS CONTINUING IV ABX, PAIN MANAGEMENT AND WOUND CARE , PT'S VS ARE STABLE, PT DOES NOT HAVE FEVER AT DAY SHIFT, PT HAS STARTED 1 UNIT BLOOD TRASFUSION AT 1630PM, PT DOES NOT HAVE REACHTION AT DAY SHIFT , RN HAS REPORTED TO NEXT SHIFT TO KEEP EYE ON PT.
[2020-11-20 20:00] VITALS: BP 94/42
[2020-11-21 03:29] VITALS: BP 92/44
[2020-11-21 05:19] LABS: BASOPHILS 0.4 % (0.0-2.0); EOSINOPHILS 0.3 % (0.0-3.0); HEMOGLOBIN 8.5 gm/dL (12.0-15.0); LYMPHOCYTES 3.9 % (24.0-44.0); MCH 33.2 pg (26.0-34.0); MCHC 32.7 g/dL (28.0-37.0); MCV 101.4 fL (80.0-100.0); MONOCYTES 8.6 % (1.0-8.0); PLATELET COUNT 106 thou/uL (150-400); POLYS 86.8 % (36.0-66.0); RBC 2.57 mil/uL (4.20-5.00); RDW 16.1 % (10.5-14.5); WBC 6.9 thou/uL (4.0-11.0)
[2020-11-21 06:14] LABS: ALBUMIN 1.5 g/dL (3.4-5.0); MAGNESIUM 1.8 mg/dL (1.8-2.4); POTASSIUM 4.2 mmol/L (3.5-5.1); TOTAL BILIRUBIN 0.3 mg/dL (0.2-1.0); TOTAL PROTEIN 5.2 g/dL (6.4-8.2)
[2020-11-21 06:19] LABS: CREATININE 5.5 mg/dL (0.6-1.0)
--- NOTE | 2020-11-21 08:21 | NUR ---
PROGRESS PT'S CDIFF RESULTS WERE POSITIVE. VSS, AFEBRILE THIS SHIFT. IV ANTIBIOTICS CONTINUE ORDERED, TELE INTACT DRESSING C/D/I, PT ABLE TO ASSIST IN POSITIONING. VOIDS PER BEDPAN BUT HAD 3 SEMI SOFT STOOLS LAST NIGHT UNABLE TO DETERMINE IF IT HAD ANY URINE MIXED IN. CONTINUE POC.
[2020-11-21 09:08] VITALS: BP 85/42
[2020-11-21 11:30] VITALS: BP 89/38
--- NOTE | 2020-11-21 16:13 | NUR ---
Dc planning visit made with the pt and her room mate at bedside. She is dialyzing today and hoping to dc home with hh tomorrow. [facility] notified and can accept for readmission at dc. SNF/Rehab recommendations from the care team discussed. The pt is adament she is able to get to dialysis MWF and has good support at home. She does not want to consider SNF again or 5N. She is familiar with cdiff percautions and has dealt with this before. [facility] is aware she is a BPCI pt. Will follow.
[2020-11-21 16:15] VITALS: BP 89/38
[2020-11-21 16:40] VITALS: BP 129/95
[2020-11-21 19:26] VITALS: BP 107/55
--- NOTE | 2020-11-21 19:31 | NUR ---
CARE ASSUMED THIS AM, PT ALERT AND ORIENTED X4, DNEIES CHEST PAIN, NAUSEA AND VOMITTING. PT ON ROOM AIR, NO SIGNS OF DISTRESS NOTED. PT ON CNTACT ISO FOR C.DIFF. HAD DIALYSIS TODAY, TOOK 1.5. CONTINUE TO HAVE DIARRHEA, USED BEDPAN. PT STATED DR. PADILLA CHANGED HER WOUND DRESSING, AND REFUSE FOR ME TO TAKE PICS SINCE NEW DSG. FALL PRECAUTIONS IN PLACE. DENIES ANY NEEDS.
--- NOTE | 2020-11-21 23:03 | NUR ---
PT ALERT AND ORIENTED X4. VSS AFEBRILE. ANXIOUS AT TIMES. RE EXPLAINED HOW TO USE CALL LIGHT TO PT. SHE KEEPS YELLING HELP ME INSTEAD OF USING CALL LIGHT. PT HAD 1 LG LOOSE STOOL. MOISTURE BARRIER APPIED TO REDDENED BOTTOM/ SHAWN AREA. WOUND CAR COMPLETED ON DAY SHIFT BY WOUND CARE DR ACCORDING TO PT. SHE REFUSED FOR ME TO TAKE THEM OFF. SHE SAID THEY WERE JUST DONE BEFORE SHE ATE. ALL DRESSINGS LOOK CLEAN DRY AND INTACT. NO S/S DISTRESS. DENIED PAIN. FLU SWAB SENT TO LAB.
[2020-11-22 03:12] VITALS: BP 97/47
--- NOTE | 2020-11-22 06:39 | NUR ---
PT RESTING QUIETLY. NO C/O PAIN. NO S/S DISTRESS. PT RESQUESTED TO SIT UP AT BS EARLY THIS AM. PROGRESWSING TOWARDS D/C GOALS.
[2020-11-22 08:34] VITALS: BP 95/45
[2020-11-22 11:39] VITALS: BP 91/39
[2020-11-22] MEDS ORDERED: FOLIC ACID1 MG PO (11:50)
[2020-11-22] MEDS ORDERED: PROTONIX40 M2 PO (11:50)
[2020-11-22] MEDS ORDERED: VITAMIN B-12500 MCG PO (11:50)
[2020-11-22] MEDS ORDERED: VANCOMYCIN HCL125 MG PO (11:50)
[2020-11-22] MEDS ORDERED: CEPHALEXIN500 MG PO (11:52)
[2020-11-22 12:22] VITALS: BP 89/38
--- NOTE | 2020-11-22 13:20 | NUR ---
FAXED DISCHARGE ORDERS, SUMMARY AND NEGATIVE COVID RESULT TO [facility]. WILL CONFIRM WITH ALICE/LIAISON THAT THEY RECEIVED. [facility] P [phone]; FAX [phone]; [facility] M [phone]
[2020-11-22] MEDS ORDERED: QUESTRAN PACKET4 GM PO (15:06)
--- NOTE | 2020-11-22 15:37 | NUR ---
PATIENT RECEIVED DC ORDERS. PATIENT CONTIUES TO BE IN CONTACT PRECAUTIONS R/T CDIFF. EDUCATION GIVEN ABOUT SELF CARE AND CLEANING AT HOME FOR CDIFF. EDUCATION GIVEN TO PATIENT ABOUT ABX AND PATIENT REPORTS SHE MIGHT NOT BE ABLE TO AFFORD ONE. EDUCATION GIVEN ABOUT THIS. RECEIVED DC ORDERS. PATIENT IS A/OX3, FC, X1 ASSIST WITH A WALKER AND WHEEL CHAIR. NO CHANGES WITH CHARTED ASSESSMENT. 1420 - DC PAPERWORK DISCUSSED, IV DC'D, AND TELEMETRY REMOVED. 1525 - PATIENT TAKEN TO PRIVATE VEHICLE VIA WHEEL CHAIR. PATIENT AMBULATED TO WHEEL CHAIR WITH WALKER AND STAND BY ASSIST. ALL BELONGINGS SENT WITH PATIENT AND FRIEND.
== END 2020-11-22 15:25 | disposition home health service (06) | DRG 871 ==
LOC: ER 14:56 → EROBS 17:04 → 3W 17:04
PROVIDERS: Nurse Practitioner; Specialist; ADMIT Hospitalist; ATTEND Hospitalist
PROC: 30233N1 Transfusion of Nonautologous Red Blood Cells into Peripheral Vein, Percutaneous Approach (ICD-10-PCS; principal; 2020-11-20)
DX: A41.9 Sepsis, unspecified organism (principal); L89.323 Pressure ulcer of left buttock, stage 3; L89.313 Pressure ulcer of right buttock, stage 3; L89.893 Pressure ulcer of other site, stage 3; L89.153 Pressure ulcer of sacral region, stage 3; L89.623 Pressure ulcer of left heel, stage 3; N18.6 End stage renal disease; E43 Unspecified severe protein-calorie malnutrition; N39.0 Urinary tract infection, site not specified; I50.32 Chronic diastolic (congestive) heart failure; I13.2 Hypertensive heart and chronic kidney disease with heart failure and with stage 5 chronic kidney disease, or end stage renal disease; I47.1 Supraventricular tachycardia; L03.115 Cellulitis of right lower limb; A04.72 Enterocolitis due to Clostridium difficile, not specified as recurrent; F32.9 Major depressive disorder, single episode, unspecified; F41.9 Anxiety disorder, unspecified; R53.81 Other malaise; I95.89 Other hypotension; S81.801A Unspecified open wound, right lower leg, initial encounter; S31.109A Unspecified open wound of abdominal wall, unspecified quadrant without penetration into peritoneal cavity, initial encounter; S31.000A Unspecified open wound of lower back and pelvis without penetration into retroperitoneum, initial encounter; I48.91 Unspecified atrial fibrillation; D64.9 Anemia, unspecified; S31.819A Unspecified open wound of right buttock, initial encounter; Z90.49 Acquired absence of other specified parts of digestive tract; Z90.722 Acquired absence of ovaries, bilateral; Z85.41 Personal history of malignant neoplasm of cervix uteri; Z88.0 Allergy status to penicillin; Z88.8 Allergy status to other drugs, medicaments and biological substances; Z91.041 Radiographic dye allergy status; Z92.21 Personal history of antineoplastic chemotherapy; Z92.3 Personal history of irradiation; Z82.49 Family history of ischemic heart disease and other diseases of the circulatory system; Z83.3 Family history of diabetes mellitus; Z98.84 Bariatric surgery status; X58.XXXA Exposure to other specified factors, initial encounter; Y93.89 Activity, other specified; Y92.89 Other specified places as the place of occurrence of the external cause; Y99.8 Other external cause status; Z20.822 Contact with and (suspected) exposure to COVID-19
CPT/HCPCS: 10879; 32100

== ENCOUNTER → 2020-12-06 | Outpatient (CLI) | payer OTHER, BC ==
[~2020-12-06] MED LIST changes: +CEPHALEXIN500 MG PO; +QUESTRAN PACKET4 GM PO; +VANCOMYCIN HCL125 MG PO; +VITAMIN B-12500 MCG PO
== END ==
LOC: HYPER 09:38
PROVIDERS: ATTEND Emergency Medicine
DX: T81.89XA Other complications of procedures, not elsewhere classified, initial encounter (principal); L89.893 Pressure ulcer of other site, stage 3; L89.623 Pressure ulcer of left heel, stage 3; I73.89 Other specified peripheral vascular diseases; G90.09 Other idiopathic peripheral autonomic neuropathy; R60.0 Localized edema; M86.372 Chronic multifocal osteomyelitis, left ankle and foot; B35.1 Tinea unguium; L60.3 Nail dystrophy; M77.32 Calcaneal spur, left foot; I50.9 Heart failure, unspecified; K21.9 Gastro-esophageal reflux disease without esophagitis; N18.6 End stage renal disease; M19.90 Unspecified osteoarthritis, unspecified site; E66.9 Obesity, unspecified; F41.9 Anxiety disorder, unspecified; Z68.41 Body mass index [BMI] 40.0-44.9, adult; Z86.73 Personal history of transient ischemic attack (TIA), and cerebral infarction without residual deficits; Z85.42 Personal history of malignant neoplasm of other parts of uterus; Z79.899 Other long term (current) drug therapy; Z99.2 Dependence on renal dialysis; Y83.8 Other surgical procedures as the cause of abnormal reaction of the patient, or of later complication, without mention of misadventure at the time of the procedure; Y92.238 Other place in hospital as the place of occurrence of the external cause

== ENCOUNTER → 2020-12-25 | Outpatient (CLI) | payer OTHER, BC | LOC: HYPER 08:43 | PROVIDERS: ATTEND Emergency Medicine | DX: T81.89XD Other complications of procedures, not elsewhere classified, subsequent encounter (principal); L89.893 Pressure ulcer of other site, stage 3; L89.623 Pressure ulcer of left heel, stage 3; I73.89 Other specified peripheral vascular diseases; G90.09 Other idiopathic peripheral autonomic neuropathy; R60.0 Localized edema; M86.372 Chronic multifocal osteomyelitis, left ankle and foot; B35.1 Tinea unguium; L60.3 Nail dystrophy; M77.32 Calcaneal spur, left foot; I50.9 Heart failure, unspecified; K21.9 Gastro-esophageal reflux disease without esophagitis; N18.6 End stage renal disease; M19.90 Unspecified osteoarthritis, unspecified site; E66.9 Obesity, unspecified; F41.9 Anxiety disorder, unspecified; Z68.41 Body mass index [BMI] 40.0-44.9, adult; Z86.73 Personal history of transient ischemic attack (TIA), and cerebral infarction without residual deficits; Z85.42 Personal history of malignant neoplasm of other parts of uterus; Z99.2 Dependence on renal dialysis; Y83.8 Other surgical procedures as the cause of abnormal reaction of the patient, or of later complication, without mention of misadventure at the time of the procedure ==

== ENCOUNTER → 2021-01-22 | Outpatient (CLI) | payer OTHER, BC | LOC: HYPER 08:28 | PROVIDERS: ATTEND Emergency Medicine | DX: T81.89XD Other complications of procedures, not elsewhere classified, subsequent encounter (principal); L89.893 Pressure ulcer of other site, stage 3; L89.623 Pressure ulcer of left heel, stage 3; I73.89 Other specified peripheral vascular diseases; G90.09 Other idiopathic peripheral autonomic neuropathy; R60.0 Localized edema; M86.372 Chronic multifocal osteomyelitis, left ankle and foot; B35.1 Tinea unguium; L60.3 Nail dystrophy; M77.32 Calcaneal spur, left foot; I50.9 Heart failure, unspecified; K21.9 Gastro-esophageal reflux disease without esophagitis; N18.6 End stage renal disease; M19.90 Unspecified osteoarthritis, unspecified site; E66.9 Obesity, unspecified; F41.9 Anxiety disorder, unspecified; Z68.41 Body mass index [BMI] 40.0-44.9, adult; Z86.73 Personal history of transient ischemic attack (TIA), and cerebral infarction without residual deficits; Z85.42 Personal history of malignant neoplasm of other parts of uterus; Z99.2 Dependence on renal dialysis; Y83.8 Other surgical procedures as the cause of abnormal reaction of the patient, or of later complication, without mention of misadventure at the time of the procedure ==

== ENCOUNTER → 2021-02-19 | Outpatient (CLI) | payer OTHER, BC | LOC: HYPER 07:57 | PROVIDERS: ATTEND Emergency Medicine | DX: T81.89XD Other complications of procedures, not elsewhere classified, subsequent encounter (principal); L89.893 Pressure ulcer of other site, stage 3; L89.623 Pressure ulcer of left heel, stage 3; L89.312 Pressure ulcer of right buttock, stage 2; M86.372 Chronic multifocal osteomyelitis, left ankle and foot; L60.3 Nail dystrophy; I73.89 Other specified peripheral vascular diseases; G90.09 Other idiopathic peripheral autonomic neuropathy; R60.0 Localized edema; B35.1 Tinea unguium; I50.9 Heart failure, unspecified; N18.6 End stage renal disease; E66.01 Morbid (severe) obesity due to excess calories; K21.9 Gastro-esophageal reflux disease without esophagitis; M77.32 Calcaneal spur, left foot; M19.90 Unspecified osteoarthritis, unspecified site; F41.9 Anxiety disorder, unspecified; Z68.41 Body mass index [BMI] 40.0-44.9, adult; Z86.73 Personal history of transient ischemic attack (TIA), and cerebral infarction without residual deficits; Z85.42 Personal history of malignant neoplasm of other parts of uterus; Z99.2 Dependence on renal dialysis; Y83.8 Other surgical procedures as the cause of abnormal reaction of the patient, or of later complication, without mention of misadventure at the time of the procedure ==

== ENCOUNTER → 2021-03-28 | Day surgery (SDC) | payer OTHER, BC ==
[~2021-03-28] VITALS: Ht 152.4 cm; Wt 78.8 kg
[~2021-03-28] MED LIST changes: -FLECAINIDE ACET50 M1 PO; +LOPERAMIDE2 MG PO; +ZYRTEC10 M5 PO; +[UNRECOGNIZED DRUG - CODE] PO
[2021-03-28 14:06] LABS: HEMATOCRIT 32.8 % (37.0-47.0); HEMOGLOBIN 10.4 gm/dL (12.0-15.0); MCH 29.5 pg (26.0-34.0); MCHC 31.6 g/dL (28.0-37.0); MCV 93.4 fL (80.0-100.0); RBC 3.51 mil/uL (4.20-5.00); RDW 16.5 % (10.5-14.5); WBC 8.3 thou/uL (4.0-11.0)
[2021-03-28 14:20] VITALS: BP 93/59
[2021-03-28 14:47] LABS: CREATININE 4.3 mg/dL (0.6-1.0); POTASSIUM 3.8 mmol/L (3.5-5.1)
[2021-03-28 14:53] LABS: TOTAL BILIRUBIN 0.3 mg/dL (0.2-1.0); TOTAL PROTEIN 5.8 g/dL (6.4-8.2)
--- NOTE | 2021-03-28 14:59 | EKG ---
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 : 1955 Requested By: Rudolph Obrien Order Number: [id number] MD: Naif Alvarenga Measurements Intervals [place] Rate: 74 P: -13 [place]: 215 QRS: -68 QRSD: 115 T: 27 QT: 492 QTc: 546 Interpretive Statements Sinus rhythm Atrial premature complex Borderline prolonged NV interval Inferior infarct, old Abnormal lateral Q waves Anterior infarct, old Compared to ECG 11/20/2020 10:55:42 Atrial premature complex(es) now present Intraventricular conduction delay now present Q waves now present Myocardial infarct finding still present Electronically Signed On 03-28-2021 14:59:33 CDT by Naif Alvarenga [email or web address] <ELECTRONICALLY SIGNED> By: Naif Alvarenga MD, FACC 03/28/21 1459 1357 1357 Naif Alvarenga MD, FAC /EPI
[2021-03-28 17:07] VITALS: BP 93/59
[2021-03-28 17:56] LABS: URINE BILIRUBIN NEGATIVE (Negative); URINE BLOOD 3+ (Negative); URINE GLUCOSE-RANDOM* NEGATIVE (Negative); URINE KETONES NEGATIVE (Negative); URINE NITRITE-REFLEX NEGATIVE (Negative); URINE PROTEIN (DIPSTICK) 1+ (Negative); URINE SPECIFIC GRAVITY <= 1.005 (1.005-1.035); URINE UROBILINOGEN 0.2 E.U./dl (0.2-1.0)
[2021-03-28 17:56] LABS: URINE BILIRUBIN NEGATIVE (Negative); URINE BLOOD 3+ (Negative); URINE GLUCOSE-RANDOM* NEGATIVE (Negative); URINE KETONES NEGATIVE (Negative); URINE PROTEIN (DIPSTICK) 3+ (Negative); URINE UROBILINOGEN 0.2 E.U./dl (0.2-1.0)
[2021-03-28 18:01] LABS: URINE LEUKOCYTES-REFLEX 2+ (Negative)
[2021-03-28 18:02] LABS: URINE CLARITY HAZY; URINE COLOR PINKISH
[2021-03-28 18:03] LABS: URINE CLARITY CLOUDY; URINE COLOR REDDISH; URINE LEUKOCYTES-REFLEX 2+ (Negative); URINE NITRITE-REFLEX POSITIVE (Negative)
[2021-03-28 18:17] LABS: BACTERIA-REFLEX >30 Many /HPF (None Seen); SQUAMOUS None Seen /LPF (0-3); URINE RBC >20 Many /HPF (NONE SEEN)
[2021-03-28 18:18] LABS: CASTS None Seen /LPF (None Seen); CRYSTALS None Seen /LPF (None Seen)
[2021-03-28 18:29] LABS: SQUAMOUS None Seen /LPF (0-3); URINE RBC >20 Many /HPF (NONE SEEN)
[2021-03-28 18:30] LABS: CASTS None Seen /LPF (None Seen); CRYSTALS None Seen /LPF (None Seen)
[2021-03-28 20:27] LABS: ALBUMIN 2.5 g/dL (3.4-5.0)
--- NOTE | 2021-04-02 13:08 | PATH ---
[facility] [address] [place] [address] PATHOLOGY RPT PROCEDURE Name: EDGARDO PEDRAZA Room #: REG [facility] M.R.#: [id number] Admission: 03/28/21 Date of : 53 Discharge: Report #: [id number] Path Case #: [id number] [facility] Accession Number: [id number] . 01 Material submitted: . bladder - BLADDER BIOPSY LEFT LATERAL WALL. Modifiers: left, lateral, wall . 01 Clinical history: . CYSTOSCOPY WITH BLADDER BIOPSY CYSTOSCOPY WITH RETROGRADES HEMATURIA, FROSS, KIDNEY STONE . 02 Diagnosis: Bladder, left lateral wall, biopsy: - Markedly dilated vessels with thrombosis within lamina propria, compatible with thrombosed hemangioma. - Overlying surface showing reactive urothelium with mild focal acute inflammation. - Negative for dysplasia/malignancy. (IUV:pit; 04/01/2021) . QTP 04/01/2021 1408 Local . 02 Comment: Dr. Gretchen Ma has seen a equal opportunity representative slide of the case and concurs with the diagnosis rendered. (IUV:pit; 04/01/2021) . 02 Electronically signed: . Sonam Cruz MD, Pathologist NPI- [id number] . 01 Gross description: . Received in formalin labeled "Edgardo Pedraza, bladder biopsy-left lateral wall" is a fragment of bang-brown soft tissue measuring 0.2 x 0.2 x 0.2 cm. The specimen is submitted entirely in A1. ([facility]; 03/29/2021) [facility] 03/29/2021 1023 Local . 02 Pathologist provided ICD-10: N30.00 . 02 CPT . 943175 Specimen Comment: A courtesy copy of this report has been sent to [phone] Specimen Comment: [phone] Specimen Comment: Report sent to / [place] [address] PATHOLOGY RPT PROCEDURE Name: EDGARDO PEDRAZA Room #: REG [facility].#: [id number] Admission: 03/28/21 Date of : 53 Discharge: Report #: [id number] Path Case #: [id number] Performed at: 01 [facility] [place] [address], [place], [place] [id number] MD Leroy An MD Phone: [phone] Performed at: [address] [id number] MD Sonam Cruz MD Phone: [phone]
--- NOTE | 2021-04-03 11:47 | O ---
[facility] [place] [address] OPERATIVE REPORT Name: EDGARDO PEDRAZA Room #: REG [facility].#: [id number] Admission: 03/28/21 Attend Phys: Rudolph Obrien MD Discharge: Date of : 53 Report #: [id number] THIS REPORT FOR: cc: Sonido Miranda MD, Christopher B. MD Bock,Rudolph SLOAN ~ DATE OF SERVICE: 03/28/2021 PREOPERATIVE DIAGNOSIS: Gross hematuria. POSTOPERATIVE DIAGNOSES: Gross hematuria, radiation cystitis. PROCEDURES PERFORMED: Cystoscopy, bilateral retrograde pyelograms with bilateral upper tract cultures and cytology, bladder biopsy and fulguration, and examination under anesthesia. SURGEON: Rudolph Obrien MD ANESTHESIA: General. INDICATIONS: The patient is a very pleasant 65-year-old woman with a history of radiation to the pelvis. She subsequently has known bilateral stones and has oliguric renal failure. She has intermittent gross hematuria. She has been evaluated in the past and this has seemingly improved, but now has recurred. She is admitted for evaluation under anesthesia as she has known vaginal contraction. Surgical procedure, risks, benefits, and complications have been discussed. She understands I cannot predict all complications. DESCRIPTION OF PROCEDURE: After obtaining informed consent, she was brought to the operating room and general anesthetic was administered. A timeout was performed. She was prepped and draped in lithotomy position and appropriately padded by the operating personnel under anesthesia supervision. Preliminary fluoroscopic images were obtained, which showed opacifications overlying both kidneys. The 22-Mong[place] Olympus cystoscope was introduced under direct vision. The bladder was diffusely erythematous and really quite contracted. I was able to identify both ureters, which appeared normal. I cannulated the left and then the right. I cannulated the left initially with a ZIPwire. Over the ZIPwire, I placed an open-ended ureteral catheter into the left ureter. Contrast was injected and the collecting system was pristine with clear urine. Urine was obtained from the left upper tract for cytology and culture. I performed the identical procedure on the right side as well. Of note, with aggressive manipulation of her bladder, the irrigant was very light pink in color. At the beginning of the procedure, I had obtained urine from the bladder for cytology and culture from the bladder. Therefore, I was able to obtain the cytology and culture from both upper tracts and from the bladder. Then, there was a hyperemic area on the left side of the bladder posteriorly. I used the cold cup [facility] [address] [place] [address] OPERATIVE REPORT Name: EDGARDO PEDRAZA Room #: REG [facility]#: [id number] Admission: 03/28/21 Attend Phys: Rudolph Obrien MD Discharge: Date of : 53 Report #: [id number] forceps to biopsy this. Then, I thoroughly fulgurated this. This was sent for specimen. Hemostasis was excellent. I then drained the bladder and injected 10 mL of Uro-Jet transurethrally. I did perform a bimanual exam as best I could; however, the introitus would really not allow even my little finger. Other than visible vaginal atrophy and atrophic tissues, I could not really assess for abnormal pelvic masses, although CT scan had shown none. I have shared all findings with her significant other, Brenda Cary. <ELECTRONICALLY SIGNED> By: Rudolph Obrien MD 04/03/21 1147 1610 1640 Rudolph Obrien MD /nt
== END | disposition home or self-care (01) ==
LOC: OR 11:18
PROVIDERS: ATTEND Specialist
DX: N30.41 Irradiation cystitis with hematuria (principal); N18.6 End stage renal disease; I50.9 Heart failure, unspecified; Z98.890 Other specified postprocedural states; Z90.49 Acquired absence of other specified parts of digestive tract; Z87.442 Personal history of urinary calculi; Z79.899 Other long term (current) drug therapy; Z20.822 Contact with and (suspected) exposure to COVID-19; Z98.84 Bariatric surgery status; Z91.041 Radiographic dye allergy status
CPT/HCPCS: 50010; 50101; 51620; 56674; 56815; 57160; 58565; 62110; 62900; 70005

== ENCOUNTER → 2021-04-04 | Outpatient (CLI) | payer OTHER, BC | LOC: HYPER 09:53 | PROVIDERS: ATTEND Emergency Medicine | DX: T81.89XD Other complications of procedures, not elsewhere classified, subsequent encounter (principal); L89.152 Pressure ulcer of sacral region, stage 2; L89.623 Pressure ulcer of left heel, stage 3; I73.89 Other specified peripheral vascular diseases; G90.09 Other idiopathic peripheral autonomic neuropathy; R60.0 Localized edema; M77.32 Calcaneal spur, left foot; M86.372 Chronic multifocal osteomyelitis, left ankle and foot; B35.1 Tinea unguium; L60.3 Nail dystrophy; N30.41 Irradiation cystitis with hematuria; I50.9 Heart failure, unspecified; N18.6 End stage renal disease; K21.9 Gastro-esophageal reflux disease without esophagitis; M19.90 Unspecified osteoarthritis, unspecified site; E66.9 Obesity, unspecified; F41.9 Anxiety disorder, unspecified; Z86.73 Personal history of transient ischemic attack (TIA), and cerebral infarction without residual deficits; Z85.42 Personal history of malignant neoplasm of other parts of uterus; Z99.2 Dependence on renal dialysis; Z79.899 Other long term (current) drug therapy; Y83.8 Other surgical procedures as the cause of abnormal reaction of the patient, or of later complication, without mention of misadventure at the time of the procedure ==

== ENCOUNTER → 2021-04-11 | Outpatient (CLI) | payer OTHER, BC | LOC: SJCVCIMAG 12:06 | PROVIDERS: ATTEND Internal Medicine Cardiovascular Disease | DX: I07.1 Rheumatic tricuspid insufficiency (principal); I13.2 Hypertensive heart and chronic kidney disease with heart failure and with stage 5 chronic kidney disease, or end stage renal disease; E11.22 Type 2 diabetes mellitus with diabetic chronic kidney disease; I50.32 Chronic diastolic (congestive) heart failure; N18.6 End stage renal disease; E78.00 Pure hypercholesterolemia, unspecified; I48.0 Paroxysmal atrial fibrillation; L97.828 Non-pressure chronic ulcer of other part of left lower leg with other specified severity; I95.9 Hypotension, unspecified; Z88.0 Allergy status to penicillin; Z88.8 Allergy status to other drugs, medicaments and biological substances; Z79.899 Other long term (current) drug therapy ==

== ENCOUNTER → 2021-05-16 | Outpatient (CLI) | payer OTHER, BC | LOC: HYPER 09:43 | PROVIDERS: ATTEND Emergency Medicine | DX: T81.89XD Other complications of procedures, not elsewhere classified, subsequent encounter (principal); L89.893 Pressure ulcer of other site, stage 3; L89.623 Pressure ulcer of left heel, stage 3; I73.89 Other specified peripheral vascular diseases; G90.09 Other idiopathic peripheral autonomic neuropathy; R60.0 Localized edema; M77.32 Calcaneal spur, left foot; M86.372 Chronic multifocal osteomyelitis, left ankle and foot; N30.41 Irradiation cystitis with hematuria; E66.9 Obesity, unspecified; B35.1 Tinea unguium; L60.3 Nail dystrophy; K21.9 Gastro-esophageal reflux disease without esophagitis; I50.9 Heart failure, unspecified; N18.6 End stage renal disease; M19.90 Unspecified osteoarthritis, unspecified site; F41.9 Anxiety disorder, unspecified; Z68.41 Body mass index [BMI] 40.0-44.9, adult; Z86.73 Personal history of transient ischemic attack (TIA), and cerebral infarction without residual deficits; Z85.42 Personal history of malignant neoplasm of other parts of uterus; Z79.899 Other long term (current) drug therapy; Z99.2 Dependence on renal dialysis; Y83.8 Other surgical procedures as the cause of abnormal reaction of the patient, or of later complication, without mention of misadventure at the time of the procedure ==

== ENCOUNTER → 2021-07-30 | Outpatient (CLI) | payer OTHER, BC | LOC: ER 17:53 | DX: M77.32 Calcaneal spur, left foot (principal); I70.202 Unspecified atherosclerosis of native arteries of extremities, left leg ==

== ENCOUNTER → 2021-08-01 | Outpatient (CLI) | payer OTHER, BC | LOC: HYPER 10:46 | PROVIDERS: ATTEND Emergency Medicine | DX: T81.89XD Other complications of procedures, not elsewhere classified, subsequent encounter (principal); L89.893 Pressure ulcer of other site, stage 3; L89.623 Pressure ulcer of left heel, stage 3; I73.89 Other specified peripheral vascular diseases; G90.09 Other idiopathic peripheral autonomic neuropathy; R60.0 Localized edema; M77.32 Calcaneal spur, left foot; M86.372 Chronic multifocal osteomyelitis, left ankle and foot; N30.41 Irradiation cystitis with hematuria; E66.01 Morbid (severe) obesity due to excess calories; B35.1 Tinea unguium; L60.3 Nail dystrophy; K21.9 Gastro-esophageal reflux disease without esophagitis; I50.9 Heart failure, unspecified; N18.6 End stage renal disease; M19.90 Unspecified osteoarthritis, unspecified site; F41.9 Anxiety disorder, unspecified; Z68.41 Body mass index [BMI] 40.0-44.9, adult; Z86.73 Personal history of transient ischemic attack (TIA), and cerebral infarction without residual deficits; Z85.42 Personal history of malignant neoplasm of other parts of uterus; Z99.2 Dependence on renal dialysis; Y83.8 Other surgical procedures as the cause of abnormal reaction of the patient, or of later complication, without mention of misadventure at the time of the procedure ==